=== PATIENT | male | born 1950 | race Caucasian/White ===

== ENCOUNTER → 2017-07-24 | Outpatient (REF) | payer MEDICARE, OTHER ==
[2017-07-24 12:25] LABS: ALBUMIN 3.5 GM/DL (3.2-5.2); ALBUMIN/GLOBULIN RATIO 0.83 (1.00-1.93); BILIRUBIN,TOTAL 0.5 MG/DL (0.2-1.0); CALCIUM LEVEL 8.8 MG/DL (8.8-10.2); CREATININE FOR GFR 1.32 MG/DL (0.70-1.30); GLOMERULAR FILTRATION RATE 57.3 (>49); POTASSIUM SERUM 3.3 MEQ/L (3.5-5.1); TOTAL PROTEIN 7.7 GM/DL (6.4-8.2)
== END ==
LOC: M LABDRAW1 08:12
PROVIDERS: ATTEND Emergency Medicine
DX: E55.9 Vitamin D deficiency, unspecified (principal); E78.2 Mixed hyperlipidemia; I10 Essential (primary) hypertension

== ENCOUNTER → 2017-09-28 | Outpatient (REF) | payer MEDICARE, OTHER ==
[2017-09-28 14:14] LABS: SQUAMOUS EPITHELIAL CELL URINE NONE SEEN /hpf (SMALL AMT); WBC, URINE 0-1 /hpf (0-3)
[2017-09-28 14:15] LABS: BACTERIA, URINE NONE SEEN; HYALINE CAST, URINE NONE SEEN /lpf (0-1); MICROSCOPIC EXAM PERFORMED; MUCUS, URINE MOD AMOUNT (NEGATIVE); RBC, URINE 0-1 /hpf (0-3)
== END ==
LOC: M LAB REF 13:07
DX: N18.3 Chronic kidney disease, stage 3 (moderate) (principal); R31.29 Other microscopic hematuria
CPT/HCPCS: 81015

== ENCOUNTER → 2018-01-22 | Outpatient (REF) | payer MEDICARE, OTHER ==
[2018-01-22 12:02] LABS: TOTAL 25(OH) VITAMIN D 30.3 NG/ML (30.0-100.0)
[2018-01-22 12:07] LABS: ALBUMIN 3.5 GM/DL (3.2-5.2); ALBUMIN/GLOBULIN RATIO 0.83 (1.00-1.93); ALKALINE PHOSPHATASE 63 U/L (45-117); ALT/SGPT 22 U/L (12-78); ANION GAP 11 MEQ/L (8-16); AST/SGOT 15 U/L (7-37); BILIRUBIN,TOTAL 0.6 MG/DL (0.2-1.0); BLOOD UREA NITROGEN 30 MG/DL (7-18); CALCIUM LEVEL 8.7 MG/DL (8.8-10.2); CARBON DIOXIDE LEVEL 26 MEQ/L (21-32); CHLORIDE LEVEL 108 MEQ/L (98-107); CHOLESTEROL LEVEL 165 MG/DL (<200); CHOLESTEROL RISK RATIO 4.125 (<5); CREATININE FOR GFR 1.45 MG/DL (0.70-1.30); GLOMERULAR FILTRATION RATE 51.4 (>49); GLUCOSE, FASTING 94 MG/DL (70-100); HDL CHOLESTEROL 40 MG/DL (>40); LDL CHOLESTEROL 93.2 MG/DL (<100); NON-HDL-C 125 MG/DL; POTASSIUM SERUM 3.6 MEQ/L (3.5-5.1); SODIUM LEVEL 145 MEQ/L (136-145); TOTAL PROTEIN 7.7 GM/DL (6.4-8.2); TRIGLYCERIDES LEVEL 159 MG/DL (<150)
== END ==
LOC: M LABDRAW1 08:21
DX: E78.2 Mixed hyperlipidemia (principal); E55.9 Vitamin D deficiency, unspecified; I10 Essential (primary) hypertension
CPT/HCPCS: 80053

== ENCOUNTER → 2018-10-15 | Outpatient (REF) | payer MEDICARE, OTHER ==
[2018-10-15 18:03] LABS: BACTERIA, URINE AUTO NEGATIVE (NEGATIVE); MUCUS, URINE SMALL (NEGATIVE); RBC, URINE AUTO 3 /HPF (0-3); SQUAMOUS EPITHELIAL CELL UR AU 0 /HPF (0-6); WBC, URINE AUTO 2 /HPF (0-3)
== END ==
LOC: M LAB REF 17:19
PROVIDERS: ATTEND Internal Medicine Nephrology
DX: N18.3 Chronic kidney disease, stage 3 (moderate) (principal)

== ENCOUNTER → 2019-01-28 | Outpatient (REF) | payer MEDICARE, OTHER ==
[2019-01-28 12:37] LABS: BASO # 0.1 10^3/uL (0.0-0.2); BASO % 0.6 % (0.0-1.0); EOS # 0.3 10^3/uL (0.0-0.50); EOS % 3.2 % (0.0-3.0); HEMATOCRIT 49.5 % (42.0-52.0); HEMOGLOBIN 16.9 g/dl (13.5-17.5); LYMPH # 1.2 10^3/uL (1.5-4.5); LYMPH % 15.6 % (24.0-44.0); MEAN CORPUSCULAR HEMOGLOBIN 30.6 pg (27.0-33.0); MEAN CORPUSCULAR HGB CONC 34.1 g/dl (32.0-36.5); MEAN CORPUSCULAR VOLUME 89.5 fl (80.0-96.0); MONO # 0.7 10^3/uL (0.0-0.8); MONO % 8.9 % (0.0-5.0); NEUTROPHILS # 5.6 10^3/uL (1.8-7.7); NEUTROPHILS % 71.3 % (36.0-66.0); PLATELET COUNT, AUTOMATED 206 10^3/uL (150-450); RED BLOOD COUNT 5.53 10^6/uL (4.30-6.10); WHITE BLOOD COUNT 7.8 10^3/uL (4.0-10.0)
[2019-01-28 12:42] LABS: ALBUMIN 3.6 GM/DL (3.2-5.2); BILIRUBIN,TOTAL 0.6 MG/DL (0.2-1.0); CALCIUM LEVEL 8.9 MG/DL (8.8-10.2); CHOLESTEROL RISK RATIO 4.219 (<5); CREATININE FOR GFR 1.53 MG/DL (0.70-1.30); GLOMERULAR FILTRATION RATE 48.1 (>42); POTASSIUM SERUM 3.4 MEQ/L (3.5-5.1); TOTAL PROTEIN 7.8 GM/DL (6.4-8.2); URIC ACID 8.2 MG/DL (3.5-7.2)
[2019-01-28 13:09] LABS: TOTAL 25(OH) VITAMIN D 27.3 NG/ML (30.0-100.0)
== END ==
LOC: M LABDRAW1 11:46
PROVIDERS: ATTEND Physician Assistant
DX: I10 Essential (primary) hypertension (principal); E78.2 Mixed hyperlipidemia; E55.9 Vitamin D deficiency, unspecified; M10.9 Gout, unspecified; J30.9 Allergic rhinitis, unspecified; Z79.899 Other long term (current) drug therapy

== ENCOUNTER → 2019-04-25 | Outpatient (CLI) | payer MEDICARE ==
--- NOTE | 2019-04-25 14:20 | REP ---
RENAL ULTRASOUND: Real-time sonographic evaluation of the kidneys is performed. The kidneys are normal in size and echotexture, right kidney measuring 10.5 x 5.5 x 4.0 cm and left kidney 10.7 x 4.8 x 5.2 cm. There is no hydronephrosis bilaterally. There is a cyst in the lower pole of the right kidney measuring 4 cm in diameter. Echogenic focus in the lower left kidney measures 1.7 cm compatible with an intrarenal calculus. Urinary bladder is minimally distended. There are bilateral ureteral jets in the urinary bladder with Doppler color evaluation. IMPRESSION: No hydronephrosis. Right renal cyst. Left renal calculus. Electronically Signed by Roel Read MD 04/25/2019 05:40 P
--- NOTE | 2019-04-25 15:12 | REP ---
RENAL NUCLEAR SCAN WITH FLOW AND FUNCTION: Following the intravenous administration of 8.7 mCi of technetium-99m MAG 3 immediate flow images are obtained in the posterior projection, showing symmetrical blood flow bilaterally. Delayed renal function images are performed every minute for a period of approximately 30 minutes. There is bilateral symmetrical cortical uptake and excretion. There is no hydronephrosis bilaterally. Split function is 48.2% on the left and 51.8% on the right. Time to peak is minimally elevated, 4 minutes on the left and 3 minutes on the right. T1/2 is slightly elevated on the left at 12.7 minutes and is normal on the right at 8.7 minutes. Renal function curves are relatively normal in their downward slopes. There is mild postvoid residual after voiding. IMPRESSION: No evidence of urinary tract obstruction. Relatively symmetrical function bilaterally without significant compromise. Mild postvoid residual in the urinary bladder. Electronically Signed by Roel Read MD 04/25/2019 05:52 P
== END ==
LOC: M RAD 12:08
PROVIDERS: ATTEND Nurse Practitioner Family
DX: I12.9 Hypertensive chronic kidney disease with stage 1 through stage 4 chronic kidney disease, or unspecified chronic kidney disease (principal); N18.3 Chronic kidney disease, stage 3 (moderate)
CPT/HCPCS: 76775; 78707; A9562

== ENCOUNTER → 2019-05-07 | Outpatient (CLI) | payer MEDICARE ==
--- NOTE | 2019-05-07 10:20 | REP ---
DUPLEX DOPPLER ULTRASOUND RENAL ARTERIES: Real-time ultrasound evaluation and duplex Doppler interrogation of the renal arteries is performed bilaterally. Right kidney demonstrates length of 11.1 cm with no hydronephrosis and left kidney 11.3 cm with no hydronephrosis. Peak systolic velocity of the abdominal aorta at the level of the renal arteries is 120.6 cm/s. Peak systolic velocity at the origin of the main right renal artery is 86.4 cm/s, renal to aortic ratio 0.7. Acceleration times are measured in the upper, middle, and lower thirds of the right kidney and range between 0.66 and 0.69. Acceleration times range between 0.023 and 0.025. Peak systolic velocity in the main left renal artery is 106.5 cm/s at its origin, renal to aortic ratio 0.8. Resistive indices range between 0.54 and 0.67. Acceleration times range between 0.022 and 0.028. IMPRESSION: No compelling duplex Doppler sonographic evidence of significant renal artery stenosis bilaterally. Electronically Signed by Roel Read MD 05/08/2019 04:05 P
--- NOTE | 2019-05-07 14:24 | REP ---
ULTRASOUND URINARY BLADDER: Real-time sonographic evaluation of the urinary bladder performed. Bladder measures 8.7 x 5.6 x 5.1 cm for a total volume of 162 mL. No mass or calculus is seen. There are bilateral ureteral jets seen with Doppler color evaluation. Postvoid residual is 11 mL which is 7% of the original volume. IMPRESSION: No mass or calculus. Postvoid residual 11 mL or 7% of the original volume. Electronically Signed by Roel Read MD 05/08/2019 04:17 P
== END ==
LOC: M RAD 07:21
PROVIDERS: ATTEND Nurse Practitioner Family
DX: I12.9 Hypertensive chronic kidney disease with stage 1 through stage 4 chronic kidney disease, or unspecified chronic kidney disease (principal); N18.3 Chronic kidney disease, stage 3 (moderate); R33.9 Retention of urine, unspecified

== ENCOUNTER → 2019-10-21 | Outpatient (REF) | payer MEDICARE ==
[2019-10-21 13:27] LABS: CALCIUM LEVEL 9.2 MG/DL (8.8-10.2); CREATININE FOR GFR 1.61 MG/DL (0.70-1.30); GLOMERULAR FILTRATION RATE 45.3 (>42); POTASSIUM SERUM 3.8 MEQ/L (3.5-5.1)
== END ==
LOC: M LABDRAW1 09:38
PROVIDERS: ATTEND Internal Medicine Cardiovascular Disease
DX: I10 Essential (primary) hypertension (principal)

== ENCOUNTER → 2021-03-08 | Outpatient (CLI) | payer MEDICARE | LOC: M LAB 15:42 | PROVIDERS: ATTEND Ophthalmology | DX: M31.6 Other giant cell arteritis (principal) ==

== ENCOUNTER → 2021-03-09 | Outpatient (CLI) | payer MEDICARE ==
[2021-03-09 16:13] LABS: RHEUMATOID FACTOR QUANT < 10.0 IU/ML (<15.0); TOTAL PROTEIN 8.1 GM/DL (6.4-8.2)
[2021-03-10 14:27] LABS: DRVV SCREEN 45.4 SEC
[2021-03-10 14:32] LABS: PTT LUPUS TYPE ANTICOAG SCREEN 1.2 (0-1.2)
[2021-03-10 14:43] LABS: DRVV CONFIRM 35.9 SEC
[2021-03-10 14:44] LABS: NORMALIZED RATIO 1.2 (0.00-1.20)
== END ==
LOC: M PLALAB 14:08
PROVIDERS: ATTEND Psychiatry & Neurology Neurology
DX: I63.9 Cerebral infarction, unspecified (principal)

== ENCOUNTER → 2021-03-17 | Outpatient (CLI) | payer MEDICARE ==
--- NOTE | 2021-03-18 07:51 | ECHO ---
ECHOCARDIOGRAM DATE OF PROCEDURE: 03/17/2021 Age: 70 Gender: Male Height: 70 inches Weight: 222 pounds Body Surface Area: 2.18 meters squared Outpatient REFERRING PHYSICIAN: Dr. Ramón Mejia INDICATION: History of cerebrovascular accident (CVA) - cardiac origin of embolic material? MEASUREMENTS: 2D Measurements: RV - 3.3 cm LV - 4.5 cm Septum 0.9 cm Posterior wall 0.9 cm Aortic Root 3.4 cm Ascending aorta 3.8 cm LA - 3.9 cm LVEF 66% Doppler Measurements: AV - 1.31 m/s LVOT - 0.90 m/s LVOT diameter 1.8 cm MV-E 46, A 95, E/A ratio 0.5 Early mitral deceleration time 300 msec E prime medial 5.7, A prime medial 10, E prime lateral 6.7 PV - 0.85 m/s Pulmonary artery acceleration time 100 msec RVSP 28 mmHg IVC - 1.2 cm COMMENTS: Normal sinus rhythm without interventricular conduction disturbance. Somewhat technically difficult study but some diagnostically useful information was still obtained. M-mode and 2-dimensional echocardiography was performed with pulse, continuous wave, color flow, and tissue Doppler studies. Normal left ventricular size, wall thickness and hyperkinetic wall motion. Left atrial size upper limits of normal with grade 1 left ventricular (LV) diastolic dysfunction but currently normal estimated mean left atrial pressure. Normal right heart chamber size and motion, and estimated pulmonary arterial pressure. Inferior vena cava (IVC) size was actually somewhat reduced with complete collapse suggestive of central venous pressure somewhat low. Normal aortic dimensions. Aortic valvular sclerosis without stenosis and trace to very mild aortic insufficiency. Mild degenerative changes of the mitral valvular apparatus with adequate leaflet excursion and no posterior systolic buckling. Only trace mitral insufficiency. Normal-appearing tricuspid valve with trace insufficiency. We did not see any pedunculated vegetation or intracardiac mass. No pericardial effusion. In light of the imaging challenge, it may be webb to consider transesophageal echocardiogram if a cardiac source is seriously suspect. CHRISTINE
== END ==
LOC: M CARPUL 12:51
PROVIDERS: ATTEND Psychiatry & Neurology Neurology
DX: I82.90 Acute embolism and thrombosis of unspecified vein (principal); Z86.73 Personal history of transient ischemic attack (TIA), and cerebral infarction without residual deficits; I35.8 Other nonrheumatic aortic valve disorders

== ENCOUNTER → 2021-03-25 | Outpatient (CLI) | payer MEDICARE ==
[~2021-03-25] MED LIST: ALLO100T PO; AMIL5TAB4 PO; ASPI81TA26 PO; CHLO125TA PO; CLOP75TA2 PO; DILT300C21 PO; ERGO500029 PO; HYDR-3363 PO; HYDR-3910 PO; LEVOTAB10 PO; POTA20TA6 PO
== END ==
LOC: M LABSMTC 11:37
PROVIDERS: ATTEND Anesthesiology
DX: Z01.812 Encounter for preprocedural laboratory examination (principal); Z20.822 Contact with and (suspected) exposure to COVID-19

== ENCOUNTER 2021-03-30 11:00 | Day surgery (SDC) | payer MEDICARE ==
[~2021-03-30] VITALS: Ht 177.8 cm; Wt 100.2 kg
[~2021-03-30 11:00] MED LIST changes: +LR 1,000 ML IV ONE; +ceFAZolin SOD 2 GM in IV 1 EA IV ONE
--- OUTSIDE RECORDS SUMMARY | 2021-03-30 11:05 | CCD | Continuity of Care Document ---
Author Author Kevin BAUTISTA MD Organization Unknown Address [address], [place] [address] Phone [phone] Care Team Providers Care Bridge Engineer Name Role Phone Watson Lora MD AUTM [phone] Joycelyn Mejia AUTM [phone] Charlie Quinn DP AUTM [phone] Jasmeet Donato MD AUTM [phone] Svitlana Mishra MD AUTM [phone] Uriel Dodson MD AUTM [phone] Problems Active Problems Provider Date Essential hypertension Ramez Bautista MD Onset: 6 Electrocardiogram abnormal Ramez Bautista MD Onset: 04/18 First degree atrioventricular block Ramez Bautista MD Ons et: 04/18/2016 Pure hyperglyceridemia Ramez Bautista MD Onset: 6 Overweight Ramez Bautista MD Onset: 04/18/2016 Hypertensive heart disease without congestive heart fa ilure Ramez Bautista MD Onset: 04/18/2016 Disturbance in sleep behavior Ramez Bautista MD Onset: Dietary management surveillance Ramez Bautista MD Onset: 03/13/2017 Edema Ramez Bautista MD Onset: 04/13/2017 Hypokalemia Ramez Bautista MD Onset: 08/21/2017 Premature beats Ramez Bautista MD Onset: 08/21/2017 Chronic kidney disease stage 3 Ramez Bautista MD Onset: 0 09/18/2017 Obesity Ramez Bautista MD Onset: 10/14/2019 Cerebral artery occlusion Ramez Bautista MD Onset: 2020 Social History Type Date Description Comments Sex Unknown ETOH Use Currently consumes alcohol 2-3 d rinks per month Tobacco Use Start: Unknown End: Unknown Patient is a former smoker Quit in 2000. Previously smoked up to 1 ppd x 20 yrs Smoking Status Reviewed: 03/18/21 Patient is a former smoker Qu it in 2000. Previously smoked up to 1 ppd x 20 yrs Exercise Type/Frequency Walks 5 times a week Exercise Type/Frequency hunting during tonny Exercise Type/Frequency General Activities Daily cutting, stacking, carrying, throwing wood for wood stove and wood stove maintenance in heating season Exercise Type/Frequency Does yardwork twice a we ek Exercise Type/Frequency Does housework 3 times a week Exercise Limitations Orthopedic Problem Feet Exercise Limitations Joint Pain R knee Allergies, Adverse Reactions, Alerts Active Allergies Reaction Severity Comments Date Nifedipine L/E edema 04/13/2017 Amlodipine L/E edema 04/13/2017 Spironolactone Swelling in breast 018 Inactive Allergies NKDA 04/18/2016 Medications Active Medications SIG Qnty Indications Ordering Provide r Date Aspirin 81mg Tablets DR 1 by mouth every day Unknown 03/17/2021 Clopidogrel Bisulfate 75mg Tablets 1 by mouth every day Unknown 03/17/2021 Vitamin D3 1.25mg (50873 Ut) Capsu les one tab twice a month Unknown 11/24/2019 Chlorthalidone 25mg Tablets 1/2 by mouth every day 45tabs I10 Ramez Bautista MD 10/14/2019 R60.0 Amiloride HCL 5mg Tablets 1 by mouth every day 90tabs I10 Ramez Bautista MD 10/14/2019 Potassium Chloride Liyah ER 20Meq Tablets ER 1 by mouth twice a day 180tabs Ramez Bautista MD 10/13/2019 Hydralazine HCL 25mg Tablets 1 by mouth two times a day Unknown 10/13/2019 Hydroxyzine Pamoate 25mg Capsules 1 by mouth every day at bedtime Unknown 10/17 Levocetirizine Dihydrochloride 5mg Tablets 1 by mouth every night at bedtime Unknown 10/14/2018 Diltiazem HCL ER Beads 300mg Caps ER 24HR 1 by mouth every day 90caps I10 Ramez Bautista MD 2017 Allopurinol 100mg Tablets 1 by mouth every day Unknown 12/25/2017 Immunizations Description No Information Available Vital Signs Date Vital Result Comment 03/18/2021 10:08am Weight 219.00 lb Home Weight 221lb home weight Height 71 inches 5'11" BMI (Body Mass Index) 30.5 kg/m2 Heart Rate 69 /min BP Systolic Sitting 148 mmHg CBP, large cuff/Ra BP Diastolic Sitting 95 mmHg CBP, large cuff/Ra 12/09/2020 9:00am Weight 220.00 lb Height 71 inches 5'11" BMI (Body Mass Index) 30.7 kg/m2 Heart Rate 79 /min BP Systolic Sitting 144 mmHg CBP large cuff, Ra BP Diastolic Sitting 97 mmHg CBP large cuff, Ra Results Test Acquired Date Facility Test Result H/L Range Note Laboratory test finding 03/09/2021 [facility] [phone] Erythrocyte Sedimentation Rate 2 mm/hr Normal 0 -20 Anti Thrombin 3 Panel (Ag/ac) 03/09/2021 [facility] [phone] Anti Thrombin 3 Funct Activity 102 % Normal 7 5-135 1 Anti Thrombin 3 Antigen Immuno 101 % Normal 72-124 2 Laboratory test finding 03/09/2021 [facility] [phone] Protein C Antigen 102 % Normal 60-150 3 Protein S Antigen (Tot & Free) 03/09/2021 [facility] [phone] Protein S Antigen Total 107 % Normal 60-150 4 Protein S Antigen Free 108 % Normal 57-157 5 Antinuclear Antibodies 03/09/2021 [facility] [phone] Antinuclear Antibodies Direct Negative Normal Ne gative Factor II Prothrombin Gene Dna 03/09/2021 [facility] [phone] Factor II Prothrombin Gene An (SEE NOTE) Normal . 6 Factor 5 Leiden Profile 03/09/2021 [facility] [phone] Factor V Leiden For [facility] (SEE NOTE) Normal . 7 Anti-Cardiolipin Antibodies 03/09/2021 [facility] [phone] Cardiolipin Iga Antibody <9 APLU/mL Normal 0-11 8 Cardiolipin Igg Antibody <9 GPLU/mL Normal 0-14 9 Cardiolipin Igm Antibody <9 MPLU/mL Normal 0-12 10 Laboratory test finding 03/09/2021 [facility] [phone] Lupus Type Anticoagulant Scree 1.2 Normal 0 -1.2 11 Lupus Confirm Stago 1.20 Normal 0.00-1.20 12 Lupus Screen Confirmation 03/09/2021 [facility] [phone] Hexagonal Phase Phospholipid 0 sec Normal 0-1 1 Comment For Hexagonal Confirm1 (SEE NOTE) Normal . 13 Serum Protein Electrophoresis 03/09/2021 [facility] [phone] Albumin % 53.7 % Low 55.8-66.1 Jkjss-2-Uvbpkgxc % 3.9 % Normal 2.9-4.9 Mhewv-4-Plxqltrur % 10.2 % Normal 7.1-11.8 Ghde-3-Ugsftzjit % 6.4 % Normal 4.7-7.2 Slxl-5-Ioypggjvc % 7.8 % High 3.2-6.5 Gamma Globulin % 18.0 % Normal 11.1-18.8 Albumin 4.35 GM/DL Normal 3.29-5.55 Llazf-3-Buarbotuu 0.32 GM/DL Normal 0.17-0.41 Blyfe-8-Xwzslrnbr 0.83 GM/DL Normal 0.42-0.99 Zxni-5-Xyzenwbpr 0.52 GM/DL Normal 0.28-0.60 Pxgp-4-Ncvdviuxx 0.63 GM/DL High 0.19-0.55 Gamma Globulins 1.46 GM/DL Normal 0.65-1.58 Total Protein 8.1 GM/DL Normal 6.4-8.2 Spep Interpretation SEE COMMENT Normal 14 Spep Pathologist Review REV'D BY Kitty VINSON Normal Laboratory test finding 03/09/2021 [facility] [phone] Syphilis NONREACTIVE Normal Nonreactive Rheumatoid Factor Quant < 10.0 IU/mL Normal <15.0 Laboratory test finding 03/08/2021 [facility] - not interf aced (315)- - C-Reactive Protein QN 0.74 High 0.00-0.30 Sed Rate 1 0-20 Renal Profile 10/19/2020 [facility] Glucose 100 Blood Urea Nitrogen 28.1 Creatinine 1.5 GFR (Calculated) 46 Sodium 137.6 Potassium 4.6 Chloride 108.7 Carbon Dioxide 26.3 Calcium 8.8 Phosphorus 2.8 Albumin 4.1 CBC without Differential 10/19/2020 [facility] White Blood Count 9.3 Red Blood Count 5.73 Platelets 185 Hemoglobin 17.9 Hematocrit 53.9 Laboratory test finding 10/19/2020 [facility] Magnesium Level 1.91 Uric Acid 6.6 1 Direct Xa inhibitor anticoag ulants such as rivaroxaban, apixaban and edoxaban will lead to spuriously elevated antithrombin activity levels possibly masking a deficiency. 2 This test was developed and its performance characteristics determined by [employer]. It has not been cleared or approved by the Food and Drug Administration. 3 Performed at: - [facility] [id number] Wind Turbine Engineer: Tasha Huerta MD, Phone: [phone] Performed at: - [facility] [id number] Wind Turbine Engineer: Demario Campoverde MD, Phone: [phone] Performed at: [facility] [address] [place], [place] [address] 554 Wind Turbine Engineer: [facility], located within [facility], Phone: [phone] 4 This test was developed and its performance characteristics determined by [employer]. It has not been cleared or approved by the Food and Drug Administration. 5 This test was developed and its performance characteristics determined by [employer]. It has not been cleared or approved by the Food and Drug Administration. Effective April 12, 2021, the reference interval for Protein S, Free will be changing to: 61 - 136% 6 NEGATIVE No mutation identified. . Comment: A point mutation ([id number]) in the factor II (prothrombin) gene is the second most common cause of inherited thrombophilia. The incidence of this mutation in the [place] population is about 2% and in the population it is approximately 0.5%. This mutation is rare in the and population. Being heterozygous for a prothrombin mutation increases the risk for developing venous thrombosis about 2 to 3 times above the general population risk. Being homozygous for the prothrombin gene mutation increases the relative risk for venous thrombosis further, although it is not yet known how much further the risk is increased. In women heterozygous for the prothrombin gene mutation, the use of estrogen containing oral contraceptives increases the relative risk of venous thrombosis about 16 times and the risk of developing cerebral thrombosis is also significantly increased. In the prothrombin gene mutation increases risk for venous thrombosis and may increase risk for stillbirth, placental abruption, pre-eclampsia and growth restriction. If the patient possesses two or more congenital or acquired thrombophilic risk factors, the risk for thrombosis may rise to more than the sum of the risk ratios for the individual mutations. This assay detects only the prothrombin [id number] mutation and does not measure genetic abnormalities elsewhere in the genome. Other thrombotic risk factors may be pursued through systematic clinical laboratory analysis. These factors include the R506Q (Leiden) mutation in the Factor V gene, plasma homocysteine levels, as well as testing for deficiencies of antithrombin III, protein C and protein S. . Genetic Counselors are available for health care providers to discuss results at [phone]). . Methodology: DNA analysis of the Factor II gene was performed by PCR amplification followed by restriction analysis. The diagnostic sensitivity is >99% for both. All the tests must be combined with clinical information for the most accurate interpretation. Molecular-based testing is highly accurate, but as in any laboratory test, diagnostic errors may occur. . This test was developed and its performance characteristics determined by [employer]. It has not been cleared or approved by the Food and Drug Administration. . Hildat SR, et al. Blood. 1996; 88:7482-1533. Erica EA. Circulation. 2004; 110:e15-e18. Hannah I, et al. Arterioscler Thromb Vasc Biol. 1999; 19:700-703. . Vicki Springer, PhD, [facility] Marylou Nicholson, PhD, [facility] WJoan Obrien, PhD, FAC Heaven Fortune, PhD, [facility] Hue Muñoz, PhD, [facility] Pascual Ontiveros, PhD, [facility] 7 Result: Negative (no mutati on found) . Factor V Leiden is a specific mutation (R506Q) in the factor V gene that is associated with an increased risk of venous thrombosis. Factor V Leiden is more resistant to inactivation by activated protein C. As a result, factor V persists in the circulation leading to a mild hyper- coagulable state. The Leiden mutation accounts for 90% - 95% of APC resistance. Factor V Leiden has been reported in patients with deep vein thrombosis, pulmonary embolus, central retinal vein occlusion, cerebral sinus thrombosis and hepatic vein thrombosis. Other risk factors to be considered in the workup for venous thrombosis include the [id number] mutation in the factor II (prothrombin) gene, protein S and C deficiency, and antithrombin deficiencies. Anticardiolipin antibody and lupus anticoagulant analysis may be appropriate for certain patients, as well as homocysteine levels. . Contact your local [facility] for information on how to order additional testing if desired. . . Genetic counselors are available for health care providers to discuss results at [phone] ([phone]). . Methodology: DNA analysis of the Factor V gene was performed by allele- specific PCR. The diagnostic sensitivity and specificity is >99% for both. Molecular-based testing is highly accurate, but as in any laboratory test, diagnostic errors may occur. All test results must be combined with clinical information for the most accurate interpretation. . This test was developed and its performance characteristics determined by [facility]. It has not been cleared or approved by the Food and Drug Administration. . References: Lois Erazo (1996). Clin Lab Med 16:169-186. . Vicki Springer, PhD, [facility] Marylou Nicholson, PhD, [facility] López Obrien, PhD, FAC Heaven Fortune, PhD, [facility] Hue Muñoz, PhD, [facility] Pascual Ontiveros PhD, [facility] 8 Negative: <12 Indeterminate: 12 - 20 Low-Med Positive: >20 - 80 High Positive: >80 9 Negative: <15 Indeterminate: 15 - 20 Low-Med Positive: >20 - 80 High Positive: >80 10 Negative: <13 Indeterminate: 13 - 20 Low-Med Positive: >20 - 80 High Positive: >80 11 RESULT IS 1.2 OR GREATER, FURTHER TESTING INDICATED. SEE RESULTS BELOW. INTERPRETATION This test is to screen those individuals that may have a circulating lupus anticoagulant. If the LA Screen test is normal, and/or the LA Confirm test is normal, the presence of a Lupus Anticoagulant (LA) is unlikely, but does not completely exclude LA-like activity. If both tests or the LA Confirm test are elevated, the specimen will be reflexed to a hexagonal phase phospholipid test through our reference laboratory for confirmation. A positive hexagonal phase phospholipid is indicative of LA. A negative hexagonal phase phospholipid test may indicate a coagulation factor deficiency or a specific inhibitor. 12 NORMALIZED RATIO IS EQUAL TO OR GREATER THAN 1.20 LA IS PRESENT. SPECIMEN WILL BE SENT TO [facility], [address] Charly Shook. [id number] REFERE [facility] FOR CONFIRMATION. 13 . Results do not indicate the presence of a Lupus Anticoagulant: abnormal high screening results (PTT-LA, dRVVT, mixing studies), may be due to medication (heparin, warfarin, aspirin), Factor inhibitors, anticardiolipin antibodies, or poor specimen integrity. Performed at: [address] [id number] Wind Turbine Engineer: Demario Campoverde MD, Phone: [phone] NO M-SPIKE(S)NOTED. Procedures Date Code Description Status 03/18/2021 33999 Office/Outpatient Established Lo w MDM 20-29 Min Completed 01/22/2021 71471 Chronic Care MGMT 20 Mins Clinical Staff Time Per Calendar Month Completed 12/21/2020 88652 Chronic Care MGMT 20 Mins Clinical Staff Time Per Calendar Month Completed 12/09/2020 23307 Office/Outpatient Established Mo d MDM 30-39 Min Completed 12/09/2020 10531 Arterial Pressure Wa veform Analysis For Assessment Of Central Art Completed 12/09/2020 39084 ECG 12-Lead Completed Medical Devices Description No Information Available Encounters Type Date Location Provider Dx Diagnosis Office Visit 03/18/2021 10:00a Main Office Ramez Bautista MD I63.9 Cerebral infarction, unspecified I10 Essential (primary) hyperten starr Office Visit 01/22/2021 2:31p Main Office Ramez Bautista MD I10 Essential (primary) hypertension I11.9 Hypertensive heart disease w [facility] heart failure Office Visit 12/21/2020 10:32a Main Office Ramez Bautista MD I10 Essential (primary) hypertension I11.9 Hypertensive heart disease w [facility] heart failure Office Visit 12/09/2020 9:00a Main Office Ramze Bautista MD I10 Essential (primary) hypertension I11.9 Hypertensive heart disease w [facility] heart failure R60.0 Localized edema I44.0 Atrioventricular block, firs t degree R94.31 Abnormal electrocardiogram [ ECG] [EKG] E66.09 Other obesity due to excess calories Z71.3 Dietary counseling and surve illance Assessments Date Code Description Provider 03/18/2021 I63.9 Cerebral infarction, unspecified Ramez Bautista MD 03/18/2021 I10 Essential (primary) hypertension Ramez Bautista MD 01/22/2021 I10 Essential (primary) hypertension Ramez Bautista MD 01/22/2021 I11.9 Hypertensive heart disease witho ut heart failure Ramez Bautista MD 12/21/2020 I10 Essential (primary) hypertension Ramez Bautista MD 12/21/2020 I11.9 Hypertensive heart disease witho ut heart failure Ramez Bautista MD 12/09/2020 I10 Essential (primary) hypertension Ramez Bautista MD 12/09/2020 I11.9 Hypertensive heart disease witho ut heart failure Ramez Bautista MD 12/09/2020 R60.0 Localized edema Ramez Bautista MD 12/09/2020 I44.0 Atrioventricular block, first de gree Ramez Bautista MD 12/09/2020 R94.31 Abnormal electrocardiogram [ECG] [EKG] Ramez Bautista MD 12/09/2020 E66.09 Other obesity due to excess sapna david Ramez Bautista MD 12/09/2020 Z71.3 Dietary counseling and surveilla nce Ramez Bautista MD Plan of Treatment Future Appointment(s):* 06/25/2021 11:15 am - Ramez Bautista MD at Main Office 03/18/2021 - Ramez Bautista MD* I63.9 Cerebral infarction, unspecified* Recommendations:* Subcutaneous cardiac rhythm monitor: SC cardiac rhythm monitor was discussed with the patient to further evaluate for cryptogenic stroke. Risks of SC cardiac rhythm monitor implantation were explained to the patient including, but not all inclusive: Very low risk for bleeding, infection, adverse drug reaction. Patient was agreeable to undergo implantation of a subcutaneous cardiac rhythm monitor and signed the consent form. Patient prefers and requests to have monitored anesthetic care to help with any anxiety or pain that may occur during the subcutaneous cardiac rhythm monitor implant procedure rather than having the procedure done in the office without IV sedation or IV pain medications. Arrangements in progress for elective outpatient implantation of a SC cardiac rhythm monitor with MAC. * I10 Essential (primary) hypertension* Recommendations:* Continue diltiazem ER, chlorthalidone, amiloride, potassium chloride, hydralazine at the current dosages. * All * Follow up:* 1. Book [employer] implantable loop recorder implant by Dr. Bautista. 2. Book incision check 5-8 days after implantable loop recorder implant. Functional Status Functional Condition Comment Date Status Independent with all ADL's Activ e Mental Status Description No Information Available Referrals Description No Information Available
--- OUTSIDE RECORDS SUMMARY | 2021-03-30 11:05 | CCD | Continuity of Care Document ---
Author Kevin Lockhart M.D. Organization Unknown Address [address] [place] [address] Phone [phone] Care Team Providers Care Catering Operations Manager Name Role Phone Svitlana Mishra M.D. AUTM [phone] Problems Active Problems Provider Date Excessive day and night-time sleepiness Ramón Mejia M.D. Onset: 04/20/2016 Sleep apnea Ramón Mejia M.D. Onset: 04/20/2016 Chronic neck pain Ramón Mejia M.D. Onset: 04/20/2016 Cerebrovascular accident Ramón Mejia M.D. Onset: 03/09/20 21 Peripheral visual field defect Ramón Mejia M.D. Onset: Social History Type Date Description Comments Sex Unknown Tobacco Use Start: Unknown Patient has never smoked Allergies, Adverse Reactions, Alerts Description No Known Drug Allergies Medications Active Medications SIG Qnty Indications Ordering Provide r Date Plavix 75mg Tablets 1 by mouth every day 90tabs Ramón Mejia M.D. 03/15/2021 Chlorthalidone 25mg Tablets Ramón Mejia M.D. 04/20/2016 Immunizations Description No Information Available Vital Signs Date Vital Result Comment 04/20/2016 10:32am BP Systolic 140 mmHg BP Diastolic 85 mmHg Heart Rate 72 /min Height 70 inches 5'10" Weight 210.00 lb BMI (Body Mass Index) 30.1 kg/m2 Agar Body Weight 166 lb Results Test Acquired Date Facility Test Result H/L Range Note Laboratory test finding 03/09/2021 [facility] Erythrocyte Sedimentation Rate 2 mm/hr Normal 0-20 Anti Thrombin 3 Panel (Ag/ac) 03/09/2021 [facility] Anti Thrombin 3 Funct Activity 102 % Normal 75-135 1 Anti Thrombin 3 Antigen Immuno 101 % Normal 72-124 2 Laboratory test finding 03/09/2021 [facility] Protein C Antigen 102 % Normal 60-150 3 Protein S Antigen (Tot & Free) 03/09/2021 [facility] Protein S Antigen Total 107 % Normal 60-150 4 Protein S Antigen Free 108 % Normal 57-157 5 Antinuclear Antibodies 03/09/2021 [facility] Antinuclear Antibodies Direct Negative Normal Negative Factor II Prothrombin Gene Dna 03/09/2021 [facility] Factor II Prothrombin Gene An (SEE NOTE) Normal . 6 Factor 5 Leiden Profile 03/09/2021 [facility] Factor V Leiden For Med[facility] (SEE NOTE) Normal . 7 Anti-Cardiolipin Antibodies 03/09/2021 [facility] Cardiolipin Iga Antibody <9 APLU/mL Normal 0-11 8 Cardiolipin Igg Antibody <9 GPLU/mL Normal 0-14 9 Cardiolipin Igm Antibody <9 MPLU/mL Normal 0-12 10 Laboratory test finding 03/09/2021 [facility] Lupus Type Anticoagulant Scree 1.2 Normal 0-1.2 11 Lupus Confirm Stago 1.20 Normal 0.00-1.20 12 Lupus Screen Confirmation 03/09/2021 [facility] Hexagonal Phase Phospholipid 0 sec Normal 0-11 Comment For Hexagonal Confirm1 (SEE NOTE) Normal . 13 Serum Protein Electrophoresis 03/09/2021 [facility] Albumin % 53.7 % Low 55.8-66.1 Mrpjb-7-Iyzbdgtz % 3.9 % Normal 2.9-4.9 Mewlv-7-Zvvxyjqfk % 10.2 % Normal 7.1-11.8 Nvyg-1-Riasoumrd % 6.4 % Normal 4.7-7.2 Zmxc-6-Wljyvfcnd % 7.8 % High 3.2-6.5 Gamma Globulin % 18.0 % Normal 11.1-18.8 Albumin 4.35 GM/DL Normal 3.29-5.55 Qvyoe-7-Dmvpfqmgu 0.32 GM/DL Normal 0.17-0.41 Fevsl-7-Povpdjijq 0.83 GM/DL Normal 0.42-0.99 Vhuw-8-Ghrghrnjf 0.52 GM/DL Normal 0.28-0.60 Ptha-7-Koplesoof 0.63 GM/DL High 0.19-0.55 Gamma Globulins 1.46 GM/DL Normal 0.65-1.58 Total Protein 8.1 GM/DL Normal 6.4-8.2 Spep Interpretation SEE COMMENT Normal 14 Spep Pathologist Review REV'D BY Kitty VINSON Normal Laboratory test finding 03/09/2021 [facility] Syphilis NONREACTIVE Normal Nonreactive Rheumatoid Factor Quant < 10.0 IU/mL Normal <15.0 1 Direct Xa inhibitor anticoag ulants such as rivaroxaban, apixaban and edoxaban will lead to spuriously elevated antithrombin activity levels possibly masking a deficiency. 2 This test was developed and its performance characteristics determined by [email or web address]. It has not been cleared or approved by the Food and Drug Administration. 3 Performed at: - Lab[address] [id number] Grounds Maintenance Supervisor: Tasha Huerta MD, Phone: [phone] Performed at: [facility] [address] [id number] 18 Grounds Maintenance Supervisor: Demario Campoverde MD, Phone: [phone] Performed at: [facility] [address] [place], [place] [address] 343 Grounds Maintenance Supervisor: Espinoza Bundy [facility], Phone: [phone] 4 This test was developed and its performance characteristics determined by [email or web address]. It has not been cleared or approved by the Food and Drug Administration. 5 This test was developed and its performance characteristics determined by [facility]. It has not been cleared or approved by the Food and Drug Administration. Effective April 12, 2021, the reference interval for Protein S, Free will be changing to: 61 - 136% 6 NEGATIVE No mutation identified. . Comment: A point mutation ([id number]) in the factor II (prothrombin) gene is [...] mutations. This assay detects only the prothrombin [id number] mutation and does not measure genetic abnormalities [...] health care providers to discuss results at [phone] ([phone]). . Methodology: DNA analysis of the Factor [...] developed and its performance characteristics determined by [employer]. It has not been cleared or approved by the Food and Drug Administration. . Hildat SR, et al. Blood. 1996; 88:4632-7823. Erica EA. Circulation. 2004; 110:e15-e18. Hannah I, et al. Arterioscler Thromb Vasc Biol. 1999; 19:700-703. . Vicki Springer, PhD, [facility] Marylou Nicholson, PhD, FAC W. Marge Obrien, PhD, FAC Heaven Fortune, PhD, FAC Hue Muñoz, PhD, [facility] Pascual Ontiveros, PhD, [facility] 7 Result: Negative (no mutati on [...] the workup for venous thrombosis include the [id number] mutation in the factor II (prothrombin) gene, protein S and C deficiency, and antithrombin deficiencies. Anticardiolipin antibody and lupus anticoagulant analysis may be appropriate for certain patients, as well as homocysteine levels. . Contact your local [facility] for information on how to order additional testing if desired. . . Genetic counselors are available for health care providers to discuss results at [phone]). . Methodology: DNA analysis of the Factor [...] developed and its performance characteristics determined by [facility]. It has not been cleared or approved by the Food and Drug Administration. . References: Lois Erazo (1996). Clin Lab Med 16:169-186. . Vicki Springer, PhD, FAC Marylou Nicholson, PhD, FAC López Obrien, PhD, FAC Heaven Fortune, PhD, FAC Hue Muñoz, PhD, FAC Pascual Ontiveros PhD, FAC 8 Negative: <12 Indeterminate: 12 - 20 [...] IS PRESENT. SPECIMEN WILL BE SENT TO [facility], [address] [facility] [address]. Charly Shook. [address] REFERE [facility] FOR CONFIRMATION. 13 . Results do not indicate the presence of a Lupus Anticoagulant: abnormal high screening results (PTT-LA, dRVVT, mixing studies), may be due to medication (heparin, warfarin, aspirin), Factor inhibitors, anticardiolipin antibodies, or poor specimen integrity. Performed at: [address] [id number] 61 Grounds Maintenance Supervisor: Demario Campoverde MD, Phone: [phone] NO M-SPIKE(S)NOTED. Procedures Date Code Description Status 03/23/2021 57821 Office/Outpatient Established Mo d MDM 30-39 Min Completed 03/11/2021 43967 Magnetic Resonance Angiography N martinez W/O Contrast Materials Completed 03/11/2021 44973 Magnetic Resonance Angiography N martinez W/O Contrast Materials Completed 03/11/2021 68799 Magnetic Resonance Angiogtaphy H ead W/O Contrast Material(S) Completed 03/11/2021 56226 Magnetic Resonance Angiogtaphy H ead W/O Contrast Material(S) Completed 03/09/2021 63179 Office/Outpatient New Moderate M DM 45-59 Minutes Completed 03/09/2021 60926 MRI Brain W/O Contrast Completed 03/09/2021 27288 MRI Brain W/O Contrast Completed Medical Devices Description No Information Available Encounters Type Date Location Provider Dx Diagnosis Office Visit 03/23/2021 11:00a [facility] Rigoberto Craig I63.9 Cerebral infarction, unspecified M54.5 Low back pain H54.0x33 Blindness r eye category 3, blindness left eye category 3 Office Visit 03/09/2021 11:30a [facility] Rigoberto Craig 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 03/23/2021 M54.5 Low back pain Daniel Craig 03/23/2021 H54.0x33 Blindness right eye category 3, blindness left eye category 3 Ramón Mejia M.D. 03/11/2021 I63.89 Other cerebral infarction Ramón Mejia M.D. 03/11/2021 I63.89 Other cerebral infarction MRI 03/09/2021 H53.451 Other localized visual field def ect, right eye Ramón Mejia M.D. 03/09/2021 H53.451 Other localized visual field def ect, right eye MRI 03/09/2021 I65.1 Occlusion and stenosis of basila r artery Ramón Mejia M.D. 03/09/2021 I67.89 Other cerebrovascular disease Ab edin Mejia M.D. 03/09/2021 H53.8 Other visual disturbances Ramón Mejia M.D. Plan of Treatment Future Appointment(s):* 04/30/2021 9:30 am - Ramón Mejia M.D. at [facility] Functional Status Description No Information Available Mental Status Description No Information Available Referrals Description No Information Available
--- OUTSIDE RECORDS SUMMARY | 2021-03-30 11:05 | CCD | Continuity of Care Document ---
Author Author Kevin BAUTISTA MD Organization Unknown Address [address], [place] [address] Phone [phone] Care Team Providers Care Curator Natural [employer] Name Role Phone Watson Lora MD AUTM [phone] Charlie Quinn DPM AUTM [phone] Jasmeet Donato MD AUTM [phone] Svitlana Mishra MD AUTM [phone] Uriel Dodson MD AUTM [phone] Problems Active Problems Provider Date Essential hypertension [...] every day Unknown 03/17/2021 Vitamin D3 1.25mg (65332 Ut) Capsu les one tab twice a [...] H/L Range Note Laboratory test finding 03/09/2021 [facility] [phone] Erythrocyte Sedimentation Rate 2 mm/hr Normal 0 -20 Anti Thrombin 3 Panel (Ag/ac) 03/09/2021 [facility] [phone] Anti Thrombin 3 Funct Activity 102 % Normal 7 5-135 1 Anti Thrombin 3 Antigen Immuno 101 % Normal 72-124 2 Laboratory test finding 03/09/2021 [facility] [phone] Protein C Antigen 102 % Normal 60-150 3 Protein S Antigen (Tot & Free) 03/09/2021 [facility] [phone] Protein S Antigen Total 107 % Normal 60-150 4 Protein S Antigen Free 108 % Normal 57-157 5 Antinuclear Antibodies 03/09/2021 [facility] [phone] Antinuclear Antibodies Direct Negative Normal Ne gative Factor II Prothrombin Gene Dna 03/09/2021 [facility] [phone] Factor II Prothrombin Gene An (SEE NOTE) Normal . 6 Factor 5 Leiden Profile 03/09/2021 [facility] [phone] Factor V Leiden For [facility] (SEE NOTE) Normal . 7 Anti-Cardiolipin Antibodies 03/09/2021 [facility] [phone] Cardiolipin Iga Antibody <9 APLU/mL Normal 0-11 8 Cardiolipin Igg Antibody <9 GPLU/mL Normal 0-14 9 Cardiolipin Igm Antibody <9 MPLU/mL Normal 0-12 10 Laboratory test finding 03/09/2021 [facility] [phone] Lupus Type Anticoagulant Scree 1.2 Normal 0 -1.2 11 Lupus Confirm Stago 1.20 Normal 0.00-1.20 12 Lupus Screen Confirmation 03/09/2021 [facility] [phone] Hexagonal Phase Phospholipid 0 sec Normal 0-1 1 Comment For Hexagonal Confirm1 (SEE NOTE) Normal . 13 Serum Protein Electrophoresis 03/09/2021 [facility] [phone] Albumin % 53.7 % Low 55.8-66.1 Cewrf-6-Olcncxfm % 3.9 % Normal 2.9-4.9 Nhtpj-1-Dnmkhwgdp % 10.2 % Normal 7.1-11.8 Fkur-2-Tofdwnmit % 6.4 % Normal 4.7-7.2 Krwo-9-Lrflupclo % 7.8 % High 3.2-6.5 Gamma Globulin % 18.0 % Normal 11.1-18.8 Albumin 4.35 GM/DL Normal 3.29-5.55 Qqqgl-0-Dlzqkulya 0.32 GM/DL Normal 0.17-0.41 Izayw-1-Aqkzeblxp 0.83 GM/DL Normal 0.42-0.99 Ufay-6-Otyisuxug 0.52 GM/DL Normal 0.28-0.60 Qker-0-Lozzeagrl 0.63 GM/DL High 0.19-0.55 Gamma Globulins 1.46 GM/DL Normal 0.65-1.58 Total Protein 8.1 GM/DL Normal 6.4-8.2 Spep Interpretation SEE COMMENT Normal 14 Spep Pathologist Review REV'D BY Kitty VINSON Normal Laboratory test finding 03/09/2021 [facility] [phone] Syphilis NONREACTIVE Normal Nonreactive Rheumatoid Factor Quant [...] developed and its performance characteristics determined by [employer]. It has not been cleared or approved by the Food and Drug Administration. 3 Performed at: - Lab[address] [id number] Landscape Maintenance Internship: Tasha Huerta MD, Phone: [phone] Performed at: [facility] Lab[address] [id number] Landscape Maintenance Internship: Demario Campoverde MD, Phone: [phone] Performed at: [facility] [address] [place] [place], [place] [address] 076 Landscape Maintenance Internship: Espinoza Bundy [facility], Phone: [phone] This test was developed and its performance characteristics determined by [employer]. It has not been cleared or approved by the Food and Drug Administration. 5 This test was developed and its performance characteristics determined by [employer]. It has not been cleared or approved by the Food and Drug Administration. Effective April 12, 2021, the reference interval for Protein S, Free will be changing to: 61 - 136% 6 NEGATIVE No mutation identified. . Comment: A point mutation ([id number]) in the factor II (prothrombin) gene is [...] mutations. This assay detects only the prothrombin [id number] mutation and does not measure genetic abnormalities [...] health care providers to discuss results at [phone]). . Methodology: DNA analysis of the Factor [...] developed and its performance characteristics determined by [employer]. It has not been cleared or approved by the Food and Drug Administration. . Poort SR, et al. Blood. 1996; 88:3033-7928. Erica EA. Circulation. 2004; 110:e15-e18. Hannah I, et al. Arterioscler Thromb Vasc Biol. 1999; 19:700-703. . Vicki Springer, PhD, [facility] Marylou Nicholson, PhD, [facility] W. Marge Obrien, PhD, FAC Heaven Fortune, PhD, [facility] Hue Muñoz, PhD, [facility] Pascual Ontiveros, PhD, [facility] 7 Result: Negative (no mutati on found) [...] the workup for venous thrombosis include the [id number] mutation in the factor II (prothrombin) gene, protein S and C deficiency, and antithrombin deficiencies. Anticardiolipin antibody and lupus anticoagulant analysis may be appropriate for certain patients, as well as homocysteine levels. . Contact your local [facility] for information on how to order additional testing if desired. . . Genetic counselors are available for health care providers to discuss results at [phone] [place] ([phone]). . Methodology: DNA analysis of the Factor [...] developed and its performance characteristics determined by [facility]. It has not been cleared or approved by the Food and Drug Administration. . References: Lois Erazo (1996). Clin Lab Med 16:169-186. . Vicki Springer, PhD, FAC Marylou Nicholson, PhD, [facility] W. Marge Obrien, PhD, FAC Heaven Fortune, PhD, FAC Hue Muñoz, PhD, FAC Pascual Ontiveros PhD, [facility] 8 Negative: <12 Indeterminate: 12 - 20 [...] IS PRESENT. SPECIMEN WILL BE SENT TO [facility], [address] Rod Shook.Murtaza. [address] REFERE [facility] FOR CONFIRMATION. 13 . Results do not indicate the presence of a Lupus Anticoagulant: abnormal high screening results (PTT-LA, dRVVT, mixing studies), may be due to medication (heparin, warfarin, aspirin), Factor inhibitors, anticardiolipin antibodies, or poor specimen integrity. Performed at: [facility] [address] [id number] Landscape Maintenance Internship: Demario Campoverde MD, Phone: [phone] NO M-SPIKE(S)NOTED. Procedures Date Code Description Status 03/18/2021 60756 Office/Outpatient Established Lo w MDM 20-29 Min Completed 01/22/2021 22134 Chronic Care MGMT 20 Mins Clinical Staff Time Per Calendar Month Completed 12/21/2020 82334 Chronic Care MGMT 20 Mins Clinical Staff Time Per Calendar Month Completed 12/09/2020 33544 Office/Outpatient Established Mo d MDM 30-39 Min Completed 12/09/2020 09476 Arterial Pressure Wa veform Analysis For Assessment Of Central Art Completed 12/09/2020 69584 ECG 12-Lead Completed 09/22/2020 41991 Chronic Care MGMT 20 Mins Clinical Staff Time Per Calendar Month Completed Medical Devices Description No Information Available Encounters Type Date Location Provider Dx Diagnosis Office Visit 03/18/2021 10:00a Main Office Ramez Bautista MD I63.9 Cerebral infarction, unspecified I10 Essential (primary) hyperten starr Office Visit 12/21/2020 10:32a Main Office Ramez Bautista MD I10 Essential (primary) hypertension I11.9 Hypertensive heart disease w [facility] heart failure Office Visit 12/09/2020 9:00a Main Office Ramez Bautista MD I10 Essential (primary) hypertension I11.9 Hypertensive heart disease w [facility] heart failure R60.0 Localized edema I44.0 Atrioventricular block, firs t degree R94.31 Abnormal electrocardiogram [ ECG] [EKG] E66.09 Other obesity due to excess calories Z71.3 Dietary counseling and surve illance Office Visit 09/22/2020 7:49a Main Office Ramez Bautista MD I10 Essential (primary) hypertension E66.09 Other obesity due to excess calories E78.1 Pure hyperglyceridemia Assessments Date Code Description Provider 03/18/2021 I63.9 Cerebral infarction, unspecified Ramez Bautista MD 03/18/2021 I10 Essential (primary) hypertension Ramez Bautista MD 01/22/2021 I10 Essential (primary) hypertension Ramez Bautista MD 01/22/2021 I11.9 Hypertensive heart disease witho il heart failure Ramez Bautista MD 12/21/2020 I10 Essential (primary) hypertension Ramez Bautista MD 12/21/2020 I11.9 Hypertensive heart disease witho il heart failure Ramez Bautista MD 12/09/2020 I10 [...] counseling and surveilla nce Ramez Bautista MD 09/22/2020 I10 Essential (primary) hypertension Ramez Bautista MD 09/22/2020 E66.09 Other obesity due to excess sapna david Ramez Bautista MD 09/22/2020 E78.1 Pure hyperglyceridemia Ramez Bautista MD Plan of Treatment Future Appointment(s):* 06/25/2021 11:15 am - Ramez Bautista MD at Main Office 03/18/2021 - Ramez Bautista MD* I63.9 Cerebral infarction, unspecified * I10 Essential (primary) hypertension * All * Follow up:* 1. Book [employer] implantable loop recorder implant by Dr. Bautista. 2. Book incision check 5-8 days after implantable loop recorder implant. Functional Status Functional Condition Comment Date Status Independent with all ADL's Activ e Mental Status Description No Information Available Referrals Description No Information Available
--- OUTSIDE RECORDS SUMMARY | 2021-03-30 11:05 | CCD | Continuity of Care Document ---
Author Author Kevin CORONA DPM Organization Unknown Address [address] [place] [address], [address] [place] [address] Phone [phone] Care Team Providers Care Furnace Door Tender Name Role Phone Svitlana Mishra M.D. [phone] Problems Active Problems Provider Date Osteochondropathy Charlie Corona DPM Onset: 12/05/2016 Corns and callus Charlie Corona DPM Onset: 12/05/2016 Other specified polyneuropathies Charlie Corona DPM Onset: 06/05/2019 Social History Type Date Description Comments Sex Unknown ETOH Use Has consumed alcohol in the past used to drink beer and wine now only has maybe a glassof wine or a beer in a week Tobacco Use Start: Unknown End: Unknown Patient is a former smoker hx smoking 20 years 1 ppd, quit in 1999 Allergies, Adverse Reactions, Alerts Description No Known Drug Allergies Medications Active Medications SIG Qnty Indications Ordering Provide r Date Cephalexin 500mg Tablets 1 by mouth twice a day 14tabs Charlie Corona DPM 04/26/2018 Ciclopirox 8% Solution apply to affected nail(s) as directed 6.6units Charlie Corona DPM 017 Ammonium Lactate 12% Cream apply to feet daily 280gm Charlie Corona DPM 12/15/2015 Silvadene 1% Cream apply twice a day to ulcer 60g Charlie Corona DPM 08/25/2015 Amlodipine Besylate 10mg Tablets Black Rigoberto.Tomasa,Christopher Atenolol 50mg Tablets Guido Franklin.Tomasa,Christopher Lisinopril 40mg Tablets Guido Robles,Christopher Mupirocin 2% Ointment Black Rigoberto.Nadege.,Christopher Cefdinir 300mg Capsules Black Rigoberto.Tomasa,Christopher Vitamin D (Ergocalciferol) 80505Msxl Capsules Unknown Penicillin V Potassium 500mg Tablets Unknown Azelastine HCL (Nasal) 0.1% Solution Unknown Fluticasone Propionate 50mcg/Act Suspension Unknown Triamcinolone Acetonide 0.5% Cream Unknown Immunizations Description No Information Available Vital Signs Date Vital Result Comment 07/28/2015 9:33am Height 71 inches 5'11" Weight 205.00 lb BP Systolic 134 mmHg BP Diastolic 78 mmHg Heart Rate 72 /min BMI (Body Mass Index) 28.6 kg/m2 Results Description No Information Available Procedures Date Code Description Status 02/24/2021 57616 Office/Outpatient Established SF MDM 10-19 Min Completed 01/25/2021 50113 Paring/Cut Benign Lesion 2 To 4 Completed 12/21/2020 53475 Office/Outpatient Established SF MDM 10-19 Min Completed 11/20/2020 94302 Paring/Cut Benign Lesion 2 To 4 Completed 10/16/2020 99136 Office/Outpatient Established SF MDM 10-19 Min Completed Medical Devices Description No Information Available Encounters Type Date Location Provider Dx Diagnosis Office Visit 02/24/2021 8:15a [place] [facility] Charlie Corona DPM 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, unsp ankle and foot L84 Corns and callosities G62.89 Other specified polyneuropat hies Office Visit 12/21/2020 8:15a [place] [facility] Charlie Corona DPM 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, unsp ankle and foot L84 Corns and callosities G62.89 Other specified polyneuropat hies Office Visit 10/16/2020 8:15a [place] [facility] Charlie Corona DPM 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, unsp ankle and foot L84 Corns and callosities G62.89 Other specified polyneuropat hies Assessments Date Code Description Provider 02/24/2021 M84.879 Other disorders of c ontinuity of bone, unspecified ankle and foot Charlie Corona, DPM 02/24/2021 L84 Corns and callosities Charlie Corona, DPM 02/24/2021 G62.89 Other specified polyneuropathies Charlie Corona, DPM 01/25/2021 G62.89 Other specified polyneuropathies Charlie Corona, DPM 01/25/2021 L84 Corns and callosities Charlie Corona, DPM 12/21/2020 M84.879 Other disorders of c ontinuity of bone, unspecified ankle and foot Charlie Corona, DPM 12/21/2020 L84 Corns and callosities Charlie Corona, DPM 12/21/2020 G62.89 Other specified polyneuropathies Charlie Corona, DPM 11/20/2020 G62.89 Other specified polyneuropathies Charlie Corona, DPM 11/20/2020 L84 Corns and callosities Charlie Corona, DPM 10/16/2020 M84.879 Other disorders of c ontinuity of bone, unspecified ankle and foot Charlie Corona, DPM 10/16/2020 L84 Corns and callosities Charlie Corona, DPM 10/16/2020 G62.89 Other specified polyneuropathies Charlie Corona DPM Plan of Treatment Future Appointment(s):* 05/03/2021 8:15 am - Charlie Corona DPM at [facility] Functional Status Description No Information Available Mental Status Description No Information Available Referrals Description No Information Available
--- OUTSIDE RECORDS SUMMARY | 2021-03-30 11:05 | CCD ---
Continuity of Care Document (CCD) Created on: 03/16/2021 Kevin Goodrich External Reference #: [id number] : [id number] Sex: Male Author Organization Unknown Address Unknown Phone Unavailable Care Team Providers Care Chief Lifestyle Officer Name Role Phone Watson Lora MD AUTM [phone] Charlie [place] DPM AUTM [phone] Jasmeet Donato MD AUTM [phone] Svitlana Mishra MD AUTM [phone] Problems Active Problems Provider Date Essential hypertension [...] 09/18/2017 Obesity Ramez Bautista MD Onset: 10/14/2019 Social History Type Date Description Comments Sex Unknown ETOH Use Currently consumes alcohol 2-3 d rinks per month Tobacco Use Start: Unknown End: Unknown Patient is a former smoker Quit in 2000. Previously smoked up to 1 ppd x 20 yrs Smoking Status Reviewed: 12/09/20 Patient is a former smoker Qu it in 2000. Previously smoked up to 1 ppd x 20 yrs Exercise Type/Frequency Walks 5 times a week Exercise Type/Frequency hunting during on Exercise Type/Frequency General Activities Daily cutting, stacking, [...] SIG Qnty Indications Ordering Provide r Date Vitamin D3 1.25mg (30914 Ut) Capsu les one tab twice a [...] Available Vital Signs Date Vital Result Comment 12/09/2020 9:00am Weight 220.00 lb Height 71 inches 5'11" BMI (Body Mass Index) 30.7 kg/m2 Heart Rate 79 /min BP Systolic Sitting 144 mmHg CBP large cuff, Ra BP Diastolic Sitting 97 mmHg CBP large cuff, Ra 05/27/2020 9:23am Weight 213.00 lb Height 71 inches 5'11" BMI (Body Mass Index) 29.7 kg/m2 Heart Rate 70 /min BP Systolic Sitting 142 mmHg CBP, large cuff/Ra BP Diastolic Sitting 91 mmHg CBP, large cuff/Ra Results Test Acquired Date Facility Test Result H/L Range Note Laboratory test finding 03/09/2021 [facility] [phone] Erythrocyte Sedimentation Rate 2 mm/hr Normal 0 -20 Anti Thrombin 3 Panel (Ag/ac) 03/09/2021 [facility] [phone] Anti Thrombin 3 Funct Activity 102 % Normal 7 5-135 1 Anti Thrombin 3 Antigen Immuno 101 % Normal 72-124 2 Laboratory test finding 03/09/2021 [facility] [phone] Protein C Antigen 102 % Normal 60-150 3 Protein S Antigen (Tot & Free) 03/09/2021 [facility] [phone] Protein S Antigen Total 107 % Normal 60-150 4 Protein S Antigen Free 108 % Normal 57-157 5 Antinuclear Antibodies 03/09/2021 [facility] [phone] Antinuclear Antibodies Direct Negative Normal Ne gative Factor II Prothrombin Gene Dna 03/09/2021 [facility] [phone] Factor II Prothrombin Gene An (SEE NOTE) Normal . 6 Factor 5 Leiden Profile 03/09/2021 [facility] [phone] Factor V Leiden For [facility] (SEE NOTE) Normal . 7 Anti-Cardiolipin Antibodies 03/09/2021 [facility] [phone] Cardiolipin Iga Antibody <9 APLU/mL Normal 0-11 8 Cardiolipin Igg Antibody <9 GPLU/mL Normal 0-14 9 Cardiolipin Igm Antibody <9 MPLU/mL Normal 0-12 10 Laboratory test finding 03/09/2021 [facility] [phone] Lupus Type Anticoagulant Scree 1.2 Normal 0 -1.2 11 Lupus Confirm Stago 1.20 Normal 0.00-1.20 12 Lupus Screen Confirmation 03/09/2021 [facility] [phone] Hexagonal Phase Phospholipid 0 sec Normal 0-1 1 Comment For Hexagonal Confirm1 (SEE NOTE) Normal . 13 Serum Protein Electrophoresis 03/09/2021 [facility] [phone] Albumin % 53.7 % Low 55.8-66.1 Oxufc-6-Isdzajgf % 3.9 % Normal 2.9-4.9 Wdhup-2-Wlxzkfefv % 10.2 % Normal 7.1-11.8 Rnji-1-Xmvtxsaro % 6.4 % Normal 4.7-7.2 Fkya-2-Qidnulqtt % 7.8 % High 3.2-6.5 Gamma Globulin % 18.0 % Normal 11.1-18.8 Albumin 4.35 GM/DL Normal 3.29-5.55 Esiye-0-Jvkbzeqyy 0.32 GM/DL Normal 0.17-0.41 Eqtxk-5-Hiriizqhl 0.83 GM/DL Normal 0.42-0.99 Diza-9-Orlsnijma 0.52 GM/DL Normal 0.28-0.60 Tlqs-3-Bjrwfqjwr 0.63 GM/DL High 0.19-0.55 Gamma Globulins 1.46 GM/DL Normal 0.65-1.58 Total Protein 8.1 GM/DL Normal 6.4-8.2 Spep Interpretation SEE COMMENT Normal 14 Spep Pathologist Review REV'D BY Kitty VINSON Normal Laboratory test finding 03/09/2021 [facility] [phone] Syphilis NONREACTIVE Normal Nonreactive Rheumatoid Factor Quant [...] developed and its performance characteristics determined by [employer]. It has not been cleared or approved by the Food and Drug Administration. 3 Performed at: - [facility] [id number] Field Marketing Associate: Tasha Huerta MD, Phone: [phone] [facility]formed at: - [facility] [address] [place], [place] [address] Field Marketing Associate: Demario Campoverde MD, Phone: [phone] Performed at: - [facility] [address] [place], [place] [address] 626 Field Marketing Associate: Espinoza Bundy [facility], Phone: [phone] 4 This test was developed and its performance characteristics determined by [employer]. It has not been cleared or approved by the Food and Drug Administration. 5 This test was developed and its performance characteristics determined by [employer]. It has not been cleared or approved by the Food and Drug Administration. Effective April 12, 2021, the reference interval for Protein S, Free will be changing to: 61 - 136% 6 NEGATIVE No mutation identified. . Comment: A point mutation ([id number]) in the factor II (prothrombin) gene is [...] mutations. This assay detects only the prothrombin [id number] mutation and does not measure genetic abnormalities [...] health care providers to discuss results at [phone] ([phone]). . Methodology: DNA analysis of the Factor [...] developed and its performance characteristics determined by [employer]. It has not been cleared or approved by the Food and Drug Administration. . Hildat SR, et al. Blood. 1996; 88:6379-3676. Erica EA. Circulation. 2004; 110:e15-e18. Hannah I, et al. Arterioscler Thromb Vasc Biol. 1999; 19:700-703. . Vicki Springer, PhD, [facility] Marylou Nicholson, PhD, [facility] W. Marge Obrien, PhD, [facility] Heaven Fortune, PhD, [facility] Hue Muñoz, PhD, [facility] Pascual Ontiveros, PhD, [facility] 7 Result: Negative (no mutati on found) [...] the workup for venous thrombosis include the [id number] mutation in the factor II (prothrombin) gene, protein S and C deficiency, and antithrombin deficiencies. Anticardiolipin antibody and lupus anticoagulant analysis may be appropriate for certain patients, as well as homocysteine levels. . Contact your local [facility] for information on how to order additional testing if desired. . . Genetic counselors are available for health care providers to discuss results at [phone] ([phone]). . Methodology: DNA analysis of the Factor [...] developed and its performance characteristics determined by [employer]. It has not been cleared or approved by the Food and Drug Administration. . References: Lois Erazo (1996). Clin Lab Med 16:169-186. . Vicki Springer, PhD, [facility] Marylou Nicholson, PhD, [facility] López Obrien, PhD, [facility] Heaven Fortune, PhD, [employer] Hue Muñoz, PhD, [facility] Pascual Ontiveros PhD, [facility] 8 Negative: <12 Indeterminate: 12 - 20 [...] IS PRESENT. SPECIMEN WILL BE SENT TO [facility], [address] [place] Shook. [address] REFERE [facility] FOR CONFIRMATION. 13 . Results do not indicate the presence of a Lupus Anticoagulant: abnormal high screening results (PTT-LA, dRVVT, mixing studies), may be due to medication (heparin, warfarin, aspirin), Factor inhibitors, anticardiolipin antibodies, or poor specimen integrity. Performed at: [facility] [id number] 61 Field Marketing Associate: Demario Campoverde MD, Phone: [phone] 14 NO M-SPIKE(S)NOTED. Procedures Date Code Description Status 01/22/2021 02225 Chronic Care MGMT 20 Mins Clinical Staff Time Per Calendar Month Completed 12/21/2020 72928 Chronic Care MGMT 20 Mins Clinical Staff Time Per Calendar Month Completed 12/09/2020 41468 Office/Outpatient Established Mo d MDM 30-39 Min Completed 12/09/2020 99248 Arterial Pressure Wa veform Analysis For Assessment Of Central Art Completed 12/09/2020 96694 ECG 12-Lead Completed 09/22/2020 53982 Chronic Care MGMT 20 Mins Clinical Staff Time Per Calendar Month Completed Medical Devices Description No Information Available Encounters Type Date Location Provider Dx Diagnosis Office Visit 12/21/2020 10:32a Main Office Ramez Bautista MD I10 Essential (primary) hypertension I11.9 Hypertensive heart disease w [facility] heart failure Office Visit 12/09/2020 9:00a Main Office Ramez Bautista MD I10 Essential (primary) hypertension I11.9 Hypertensive heart disease w [facility] heart failure R60.0 Localized edema I44.0 Atrioventricular block, firs t degree R94.31 Abnormal electrocardiogram [ ECG] [EKG] E66.09 Other obesity due to excess calories Z71.3 Dietary counseling and surve illance Office Visit 09/22/2020 7:49a Main Office Ramez Bautista MD I10 Essential (primary) hypertension E66.09 Other obesity due to excess calories E78.1 Pure hyperglyceridemia Assessments Date Code Description Provider 01/22/2021 I10 Essential (primary) hypertension Ramez Bautista MD 01/22/2021 I11.9 Hypertensive heart disease witho ak heart failure Ramez Bautista MD 12/21/2020 I10 Essential (primary) hypertension Ramez Bautista MD 12/21/2020 I11.9 Hypertensive heart disease witho ak heart failure Ramez Bautista MD 12/09/2020 I10 Essential (primary) hypertension Ramez Bautista MD 12/09/2020 I11.9 Hypertensive heart disease witho ak heart failure Ramez Bautista MD 12/09/2020 R60.0 [...] Bautista MD Plan of Treatment Future Appointment(s):* 03/18/2021 10:00 am - Ramez Bautista MD at Main Office * 06/25/2021 11:15 am - Ramez Bautista MD at Main Office 12/09/2020 - Ramez Bautista MD* I10 Essential (primary) hypertension* Recommendations:* Continue diltiazem ER, chlorthalidone, amiloride, potassium chloride, hydralazine at the current dosages. Whole-food, plant-based, low sodium nutrition with avoidance of added oils and fats and avoidance of refined carbohydrates was encouraged. Walking or equivalent aerobic activity for 40-60 minutes every day. * I11.9 Hypertensive heart disease without heart failure* Recommendations:* Evaluation/management of systemic hypertension as above. * R60.0 Localized edema* Recommendations:* Continue chlorthalidone and amiloride at the current dosages. * I44.0 Atrioventricular block, first degree* Recommendations:* Continue diltiazem at the current dosage. * R94.31 Abnormal electrocardiogram [ECG] [EKG] * E66.09 Other obesity due to excess calories* Recommendations:* Nutrition and exercise advice as above. * Z71.3 Dietary counseling and surveillance * All * Follow up:* Follow-up in [address] Bautista. Functional Status Functional Condition Comment Date Status Independent with all ADL's Activ e Mental Status Description No Information Available Referrals Description No Information Available
--- OUTSIDE RECORDS SUMMARY | 2021-03-30 11:05 | CCD | Continuity of Care Document ---
Author Author Kevin BAUTISTA MD Organization Unknown Address [address] [facility], [place] [address] Phone [phone] Care Team Providers Care Food Safety Technician Name Role Phone Watson Lora MD AUTM [phone] Charlie [place] DPM AUTM [phone] Jasmeet Donato MD AUTM [phone] Svitlana Mishra MD AUTM [phone] Uriel Dodson MD AUTM [phone] Problems Active Problems Provider Date Essential hypertension [...] every day Unknown 03/17/2021 Vitamin D3 1.25mg (14532 Ut) Capsu les one tab twice a [...] H/L Range Note Laboratory test finding 03/09/2021 [facility] [phone] Erythrocyte Sedimentation Rate 2 mm/hr Normal 0 -20 Anti Thrombin 3 Panel (Ag/ac) 03/09/2021 [facility] [phone] Anti Thrombin 3 Funct Activity 102 % Normal 7 5-135 1 Anti Thrombin 3 Antigen Immuno 101 % Normal 72-124 2 Laboratory test finding 03/09/2021 [facility] [phone] Protein C Antigen 102 % Normal 60-150 3 Protein S Antigen (Tot & Free) 03/09/2021 [facility] [phone] Protein S Antigen Total 107 % Normal 60-150 4 Protein S Antigen Free 108 % Normal 57-157 5 Antinuclear Antibodies 03/09/2021 [facility] [phone] Antinuclear Antibodies Direct Negative Normal Ne gative Factor II Prothrombin Gene Dna 03/09/2021 [facility] [phone] Factor II Prothrombin Gene An (SEE NOTE) Normal . 6 Factor 5 Leiden Profile 03/09/2021 [facility] [phone] Factor V Leiden For [facility] (SEE NOTE) Normal . 7 Anti-Cardiolipin Antibodies 03/09/2021 [facility] [phone] Cardiolipin Iga Antibody <9 APLU/mL Normal 0-11 8 Cardiolipin Igg Antibody <9 GPLU/mL Normal 0-14 9 Cardiolipin Igm Antibody <9 MPLU/mL Normal 0-12 10 Laboratory test finding 03/09/2021 [facility] [phone] Lupus Type Anticoagulant Scree 1.2 Normal 0 -1.2 11 Lupus Confirm Stago 1.20 Normal 0.00-1.20 12 Lupus Screen Confirmation 03/09/2021 [facility] [phone] Hexagonal Phase Phospholipid 0 sec Normal 0-1 1 Comment For Hexagonal Confirm1 (SEE NOTE) Normal . 13 Serum Protein Electrophoresis 03/09/2021 [facility] [phone] Albumin % 53.7 % Low 55.8-66.1 Btbpf-4-Qzyvziac % 3.9 % Normal 2.9-4.9 Sdymf-7-Abyhmgzyw % 10.2 % Normal 7.1-11.8 Fwrc-6-Ohcnhgzrp % 6.4 % Normal 4.7-7.2 Ablz-9-Eflhjpyqy % 7.8 % High 3.2-6.5 Gamma Globulin % 18.0 % Normal 11.1-18.8 Albumin 4.35 GM/DL Normal 3.29-5.55 Zlhim-6-Sgjkebqny 0.32 GM/DL Normal 0.17-0.41 Ponhd-3-Awxitvasp 0.83 GM/DL Normal 0.42-0.99 Qtkk-9-Jliuutzcb 0.52 GM/DL Normal 0.28-0.60 Xbqx-0-Yjedmchsw 0.63 GM/DL High 0.19-0.55 Gamma Globulins 1.46 GM/DL Normal 0.65-1.58 Total Protein 8.1 GM/DL Normal 6.4-8.2 Spep Interpretation SEE COMMENT Normal 14 Spep Pathologist Review REV'D BY Kitty VINSON Normal Laboratory test finding 03/09/2021 [facility] [phone] Syphilis NONREACTIVE Normal Nonreactive Rheumatoid Factor Quant [...] developed and its performance characteristics determined by [employer]. It has not been cleared or approved by the Food and Drug Administration. 3 Performed at: - [address] [id number] Culture Room Worker: Tasha Huerta MD, Phone: [phone] Performed at: [facility] [address] [id number] Culture Room Worker: Demario Campoverde MD, Phone: [phone] Performed at: [facility] [place] [address] [place], [place] [address] 468 Culture Room Worker: Espinoza Bundy [facility], Phone: [phone] 4 This test was developed and its performance characteristics determined by [employer]. It has not been cleared or approved by the Food and Drug Administration. 5 This test was developed and its performance characteristics determined by [employer]. It has not been cleared or approved by the Food and Drug Administration. Effective April 12, 2021, the reference interval for Protein S, Free will be changing to: 61 - 136% 6 NEGATIVE No mutation identified. . Comment: A point mutation ([id number]) in the factor II (prothrombin) gene is [...] mutations. This assay detects only the prothrombin [id number] mutation and does not measure genetic abnormalities [...] health care providers to discuss results at [phone] ([phone]). . Methodology: DNA analysis of the Factor [...] developed and its performance characteristics determined by [employer]. It has not been cleared or approved by the Food and Drug Administration. . Poort SR, et al. Blood. 1996; 88:1223-7961. Erica EA. Circulation. 2004; 110:e15-e18. Hannah I, et al. Arterioscler Thromb Vasc Biol. 1999; 19:700-703. . Vicki Springer, PhD, [facility] Marylou Nicholson, PhD, [facility] W. Marge Obrien, PhD, [employer] Heaven Fortune, PhD, [facility] Hue Muñoz, PhD, [facility] Pascual Ontiveros, PhD, [facility] 7 Result: Negative (no mutati on [...] the workup for venous thrombosis include the [id number] mutation in the factor II (prothrombin) gene, protein S and C deficiency, and antithrombin deficiencies. Anticardiolipin antibody and lupus anticoagulant analysis may be appropriate for certain patients, as well as homocysteine levels. . Contact your local [facility] for information on how to order additional testing if desired. . . Genetic counselors are available for health care providers to discuss results at [phone] ([phone]). . Methodology: DNA analysis of the Factor [...] developed and its performance characteristics determined by [facility]. It has not been cleared or approved by the Food and Drug Administration. . References: Lois Erazo (1996). Clin Lab Med 16:169-186. . Vicki Springer, PhD, [employer] Marylou Nicholson, PhD, [facility] W. Marge Obrien, PhD, [employer] Heaven Fortune, PhD, [employer] Hue Muñoz, PhD, [employer] Pascual Ontiveros PhD, [facility] 8 Negative: <12 Indeterminate: 12 - [...] IS PRESENT. SPECIMEN WILL BE SENT TO [facility], [address] [place] Shook.[place]. [address] REFERE [facility] FOR CONFIRMATION. 13 . Results do not indicate the presence of a Lupus Anticoagulant: abnormal high screening results (PTT-LA, dRVVT, mixing studies), may be due to medication (heparin, warfarin, aspirin), Factor inhibitors, anticardiolipin antibodies, or poor specimen integrity. Performed at: [facility] [address] [id number] Culture Room Worker: Demario Campoverde MD, Phone: [phone] 14 NO M-SPIKE(S)NOTED. Procedures Date Code Description Status 03/18/2021 76831 Office/Outpatient Established Lo w MDM 20-29 Min Completed 01/22/2021 69527 Chronic Care MGMT 20 Mins Clinical Staff Time Per Calendar Month Completed 12/21/2020 42873 Chronic Care MGMT 20 Mins Clinical Staff Time Per Calendar Month Completed 12/09/2020 39634 Office/Outpatient Established Mo d MDM 30-39 Min Completed 12/09/2020 42352 Arterial Pressure Wa veform Analysis For Assessment Of Central Art Completed 12/09/2020 50595 ECG 12-Lead Completed 09/22/2020 99969 Chronic Care MGMT 20 Mins Clinical Staff Time Per Calendar Month Completed Medical Devices Description No Information Available Encounters Type Date Location Provider Dx Diagnosis Office Visit 03/18/2021 10:00a Main Office Ramez Bautista MD I63.9 Cerebral infarction, unspecified I10 Essential (primary) hyperten starr Office Visit 01/22/2021 2:31p Main Office Ramez Bautista MD I10 Essential (primary) hypertension I11.9 Hypertensive heart disease w [facility] heart failure Office Visit 12/21/2020 10:32a Main Office Ramez Bautista MD I10 Essential (primary) hypertension I11.9 Hypertensive heart disease w [facility] heart failure Office Visit 12/09/2020 9:00a Main Office Ramez Bautista MD I10 Essential (primary) hypertension I11.9 Hypertensive heart disease w [facility] heart failure R60.0 Localized edema I44.0 [...]
--- OUTSIDE RECORDS SUMMARY | 2021-03-30 11:05 | CCD | Continuity of Care Document ---
Author Author Kevin BAUTISTA MD Organization Unknown Address [address] [facility], [place] [address] Phone [phone] Care Team Providers Care Sludge Filtration Attendant Name Role Phone Watson Lora MD AUTM [phone] Charlie Quinn DPM AUTM [phone] Jasmeet Donato MD AUTM [phone] Svitlana Mishra MD AUTM [phone] Uriel Dodson MD AUTM [phone] Problems Active Problems Provider Date Essential hypertension Ramez Bautista MD Onset: 6 Electrocardiogram abnormal Rmaez Bautista MD Onset: 04/18 First degree atrioventricular [...] every day Unknown 03/17/2021 Vitamin D3 1.25mg (24093 Ut) Capsu les one tab twice a [...] H/L Range Note Laboratory test finding 03/09/2021 [facility] [phone] Erythrocyte Sedimentation Rate 2 mm/hr Normal 0 -20 Anti Thrombin 3 Panel (Ag/ac) 03/09/2021 [facility] [phone] Anti Thrombin 3 Funct Activity 102 % Normal 7 5-135 1 Anti Thrombin 3 Antigen Immuno 101 % Normal 72-124 2 Laboratory test finding 03/09/2021 [facility] [phone] Protein C Antigen 102 % Normal 60-150 3 Protein S Antigen (Tot & Free) 03/09/2021 [facility] [phone] Protein S Antigen Total 107 % Normal 60-150 4 Protein S Antigen Free 108 % Normal 57-157 5 Antinuclear Antibodies 03/09/2021 [facility] [phone] Antinuclear Antibodies Direct Negative Normal Ne gative Factor II Prothrombin Gene Dna 03/09/2021 [facility] [phone] Factor II Prothrombin Gene An (SEE NOTE) Normal . 6 Factor 5 Leiden Profile 03/09/2021 [facility] [phone] Factor V Leiden For [facility] (SEE NOTE) Normal . 7 Anti-Cardiolipin Antibodies 03/09/2021 [facility] [phone] Cardiolipin Iga Antibody <9 APLU/mL Normal 0-11 8 Cardiolipin Igg Antibody <9 GPLU/mL Normal 0-14 9 Cardiolipin Igm Antibody <9 MPLU/mL Normal 0-12 10 Laboratory test finding 03/09/2021 [facility] [phone] Lupus Type Anticoagulant Scree 1.2 Normal 0 -1.2 11 Lupus Confirm Stago 1.20 Normal 0.00-1.20 12 Lupus Screen Confirmation 03/09/2021 [facility] [phone] Hexagonal Phase Phospholipid 0 sec Normal 0-1 1 Comment For Hexagonal Confirm1 (SEE NOTE) Normal . 13 Serum Protein Electrophoresis 03/09/2021 [facility] [phone] Albumin % 53.7 % Low 55.8-66.1 Fqnnd-9-Iqicpcse % 3.9 % Normal 2.9-4.9 Ckuay-8-Ejfwkkrgv % 10.2 % Normal 7.1-11.8 Zrvv-2-Kglydwlwn % 6.4 % Normal 4.7-7.2 Rybu-5-Bcvqtxiom % 7.8 % High 3.2-6.5 Gamma Globulin % 18.0 % Normal 11.1-18.8 Albumin 4.35 GM/DL Normal 3.29-5.55 Mrcgx-8-Mgzrqadoz 0.32 GM/DL Normal 0.17-0.41 Pqprq-7-Bvjzrbszy 0.83 GM/DL Normal 0.42-0.99 Cfyr-4-Ikndawpdz 0.52 GM/DL Normal 0.28-0.60 Zdci-9-Aijmgxphg 0.63 GM/DL High 0.19-0.55 Gamma Globulins 1.46 GM/DL Normal 0.65-1.58 Total Protein 8.1 GM/DL Normal 6.4-8.2 Spep Interpretation SEE COMMENT Normal 14 Spep Pathologist Review REV'D BY Kitty VINSON Normal Laboratory test finding 03/09/2021 [facility] [phone] Syphilis NONREACTIVE Normal Nonreactive Rheumatoid Factor Quant [...] developed and its performance characteristics determined by [employer]. It has not been cleared or approved by the Food and Drug Administration. 3 Performed at: - Lab[address] [id number] Food Preparation Supervisor: Tasha Huerta MD, Phone: [phone] Performed at: [facility] Lab[address] [id number] 61 Food Preparation Supervisor: Demario Campoverde MD, Phone: [phone] Performed at: [facility] [place] [address] [place], [place] [address] 097 Food Preparation Supervisor: Espinoza Bundy [facility], Phone: [phone] 4 This test was developed and its performance characteristics determined by [employer]. It has not been cleared or approved by the Food and Drug Administration. 5 This test was developed and its performance characteristics determined by [employer]. It has not been cleared or approved by the Food and Drug Administration. Effective April 12, 2021, the reference interval for Protein S, Free will be changing to: 61 - 136% 6 NEGATIVE No mutation identified. . Comment: A point mutation ([id number]) in the factor II (prothrombin) gene is [...] mutations. This assay detects only the prothrombin [id number] mutation and does not measure genetic abnormalities [...] health care providers to discuss results at [phone] ([phone]). . Methodology: DNA analysis of the Factor [...] developed and its performance characteristics determined by [employer]. It has not been cleared or approved by the Food and Drug Administration. . Poort SR, et al. Blood. 1996; 88:3781-5902. Erica EA. Circulation. 2004; 110:e15-e18. Hannah I, et al. Arterioscler Thromb Vasc Biol. 1999; 19:700-703. . Vicki Springer, PhD, [facility] Marylou Nicholson, PhD, [facility] W. Marge Obrien, PhD, FAC Heaven Fortune, PhD, [facility] Hue Muñoz, PhD, [facility] Pascual Ontiveros, PhD, [facility] 7 Result: Negative (no mutati [...] the workup for venous thrombosis include the [id number] mutation in the factor II (prothrombin) gene, protein S and C deficiency, and antithrombin deficiencies. Anticardiolipin antibody and lupus anticoagulant analysis may be appropriate for certain patients, as well as homocysteine levels. . Contact your local [facility] for information on how to order additional testing if desired. . . Genetic counselors are available for health care providers to discuss results at [phone]). . Methodology: DNA analysis of the Factor [...] developed and its performance characteristics determined by [facility]. It has not been cleared or approved by the Food and Drug Administration. . References: Lois Erazo (1996). Clin Lab Med 16:169-186. . Vicki Springer, PhD, FAC Marylou Nicholson, PhD, [facility] W. Marge Obrien, PhD, FAC Heaven Fortune, PhD, FAC Hue Muñoz, PhD, FAC Pascual Ontiveros PhD, [facility] 8 Negative: <12 Indeterminate: 12 [...] IS PRESENT. SPECIMEN WILL BE SENT TO [facility], [address] Rod Shook.Murtaza. [address] REFERE [facility] FOR CONFIRMATION. 13 . Results do not indicate the presence of a Lupus Anticoagulant: abnormal high screening results (PTT-LA, dRVVT, mixing studies), may be due to medication (heparin, warfarin, aspirin), Factor inhibitors, anticardiolipin antibodies, or poor specimen integrity. Performed at: [facility] [address] [id number] 61 Food Preparation Supervisor: Demario Campoverde MD, Phone: [phone] 14 NO M-SPIKE(S)NOTED. Procedures Date Code Description Status 03/18/2021 10882 Office/Outpatient Established Lo w MDM 20-29 Min Completed 01/22/2021 63278 Chronic Care MGMT 20 Mins Clinical Staff Time Per Calendar Month Completed 12/21/2020 84761 Chronic Care MGMT 20 Mins Clinical Staff Time Per Calendar Month Completed 12/09/2020 51786 Office/Outpatient Established Mo d MDM 30-39 Min Completed 12/09/2020 67245 Arterial Pressure Wa veform Analysis For Assessment Of Central Art Completed 12/09/2020 30129 ECG 12-Lead Completed 09/22/2020 83992 Chronic Care MGMT 20 Mins Clinical Staff Time Per Calendar Month Completed Medical Devices Description No Information Available Encounters Type Date Location Provider Dx Diagnosis Office Visit 03/18/2021 10:00a Main Office Ramez Bautista MD I63.9 Cerebral infarction, unspecified I10 Essential (primary) hyperten starr Office Visit 01/22/2021 2:31p Main Office Ramez Bautista MD I10 Essential (primary) hypertension I11.9 Hypertensive heart disease w [facility] heart failure Office Visit 12/21/2020 10:32a Main Office Ramez Bautista MD I10 Essential (primary) hypertension I11.9 Hypertensive heart disease w [facility] heart failure Office Visit 12/09/2020 9:00a Main Office Ramez Bautista MD I10 Essential (primary) hypertension I11.9 Hypertensive heart disease w [facility] heart failure R60.0 Localized edema I44.0 [...]
--- OUTSIDE RECORDS SUMMARY | 2021-03-30 11:05 | CCD | Continuity of Care Document ---
Author Kevin Lockhart M.D. Organization Unknown Address [address] [place] [address] Phone [phone] Care Team Providers Care Buttermaker Helper Name Role Phone Svitlana Mishra M.D. AUTM [phone] Problems Active Problems Provider Date Excessive day [...] lb BMI (Body Mass Index) 30.1 kg/m2 [place] Body Weight 166 lb Results Test Acquired Date Facility Test Result H/L Range Note Laboratory test finding 03/09/2021 [facility] Erythrocyte Sedimentation Rate 2 mm/hr Normal 0-20 Anti Thrombin 3 Panel (Ag/ac) 03/09/2021 [facility] Anti Thrombin 3 Funct Activity 102 % Normal 75-135 1 Anti Thrombin 3 Antigen Immuno 101 % Normal 72-124 2 Laboratory test finding 03/09/2021 [facility] Protein C Antigen 102 % Normal 60-150 3 Protein S Antigen (Tot & Free) 03/09/2021 [facility] Protein S Antigen Total 107 % Normal 60-150 4 Protein S Antigen Free 108 % Normal 57-157 5 Antinuclear Antibodies 03/09/2021 [facility] Antinuclear Antibodies Direct Negative Normal Negative Factor II Prothrombin Gene Dna 03/09/2021 [facility] Factor II Prothrombin Gene An (SEE NOTE) Normal . 6 Factor 5 Leiden Profile 03/09/2021 [facility] Factor V Leiden For [facility] (SEE NOTE) Normal . 7 Anti-Cardiolipin Antibodies 03/09/2021 [facility] Cardiolipin Iga Antibody <9 APLU/mL Normal 0-11 8 Cardiolipin Igg Antibody <9 GPLU/mL Normal 0-14 9 Cardiolipin Igm Antibody <9 MPLU/mL Normal 0-12 10 Laboratory test finding 03/09/2021 [facility] Lupus Type Anticoagulant Scree 1.2 Normal 0-1.2 11 Lupus Confirm Stago 1.20 Normal 0.00-1.20 12 Lupus Screen Confirmation 03/09/2021 [facility] Hexagonal Phase Phospholipid 0 sec Normal 0-11 Comment For Hexagonal Confirm1 (SEE NOTE) Normal . 13 Serum Protein Electrophoresis 03/09/2021 [facility] Albumin % 53.7 % Low 55.8-66.1 Zsapm-8-Mcomfkos % 3.9 % Normal 2.9-4.9 Dngmm-8-Spnrqrlig % 10.2 % Normal 7.1-11.8 Shcz-6-Wjtiektbp % 6.4 % Normal 4.7-7.2 Jfvu-4-Cfslrukqd % 7.8 % High 3.2-6.5 Gamma Globulin % 18.0 % Normal 11.1-18.8 Albumin 4.35 GM/DL Normal 3.29-5.55 Okejk-2-Occqbvreo 0.32 GM/DL Normal 0.17-0.41 Tbjes-3-Xxeerhlne 0.83 GM/DL Normal 0.42-0.99 Vlje-7-Lmbhxkawo 0.52 GM/DL Normal 0.28-0.60 Tlto-2-Ceprlmhlt 0.63 GM/DL High 0.19-0.55 Gamma Globulins 1.46 GM/DL Normal 0.65-1.58 Total Protein 8.1 GM/DL Normal 6.4-8.2 Spep Interpretation SEE COMMENT Normal 14 Spep Pathologist Review REV'D BY Kitty VINSON Normal Laboratory test finding 03/09/2021 [facility] Syphilis NONREACTIVE Normal Nonreactive Rheumatoid Factor Quant < 10.0 IU/mL Normal <15.0 1 Direct Xa inhibitor anticoag ulants such as rivaroxaban, apixaban and edoxaban will lead to spuriously elevated antithrombin activity levels possibly masking a deficiency. 2 This test was developed and its performance characteristics determined by [employer]. It has not been cleared or approved by the Food and Drug Administration. 3 Performed at: - [address] [id number] Carding Machine Feeder: Tasha Huerta MD, Phone: [phone] Performed at: [facility] [address] [id number] 18 Carding Machine Feeder: Demario Campoverde MD, Phone: [phone] Performed at: [facility] [address] [place], [place] [address] 444 Carding Machine Feeder: Espinoza Bundy [facility], Phone: [phone] 4 This test was developed and its performance characteristics determined by [employer]. It has not been cleared or approved by the Food and Drug Administration. 5 This test was developed and its performance characteristics determined by [facility]. It has not been cleared or approved by the Food and Drug Administration. Effective April 12, 2021, the reference interval for Protein S, Free will be changing to: 61 - 136% 6 NEGATIVE No mutation identified. . Comment: A point mutation ([id number]) in the factor II (prothrombin) gene is [...] mutations. This assay detects only the prothrombin [id number] mutation and does not measure genetic abnormalities [...] health care providers to discuss results at [phone] ([phone]). . Methodology: DNA analysis of the Factor [...] developed and its performance characteristics determined by [employer]. It has not been cleared or approved by the Food and Drug Administration. . Hildat SR, et al. Blood. 1996; 88:0109-7391. Erica EA. Circulation. 2004; 110:e15-e18. Hannah I, et al. Arterioscler Thromb Vasc Biol. 1999; 19:700-703. . Vicki Springer, PhD, [facility] Marylou Nicholson, PhD, FAC W. Marge Obrien, PhD, FAC Heaven Fortune, PhD, FAC Hue Muñoz, PhD, [facility] Pascual Ontiveros, PhD, [facility] 7 Result: Negative (no mutati on found) [...] the workup for venous thrombosis include the [id number] mutation in the factor II (prothrombin) gene, protein S and C deficiency, and antithrombin deficiencies. Anticardiolipin antibody and lupus anticoagulant analysis may be appropriate for certain patients, as well as homocysteine levels. . Contact your local [facility] for information on how to order additional testing if desired. . . Genetic counselors are available for health care providers to discuss results at [phone] ([phone]). . Methodology: DNA analysis of the Factor [...] developed and its performance characteristics determined by [facility]. It has not been cleared or [...] IS PRESENT. SPECIMEN WILL BE SENT TO [facility], [address] [facility] [address]. Charly Shook. [address] REFERE [facility] FOR CONFIRMATION. 13 . Results do not indicate the presence of a Lupus Anticoagulant: abnormal high screening results (PTT-LA, dRVVT, mixing studies), may be due to medication (heparin, warfarin, aspirin), Factor inhibitors, anticardiolipin antibodies, or poor specimen integrity. Performed at: [address] [id number] 61 Carding Machine Feeder: Demario Campoverde MD, Phone: [phone] 14 NO M-SPIKE(S)NOTED. Procedures Date Code Description Status 03/23/2021 04677 Office/Outpatient Established Mo d MDM 30-39 Min Completed 03/11/2021 32026 Magnetic Resonance Angiography N martinez W/O Contrast Materials Completed 03/11/2021 83873 Magnetic Resonance Angiography N martinez W/O Contrast Materials Completed 03/11/2021 80234 Magnetic Resonance Angiogtaphy H ead W/O Contrast Material(S) Completed 03/11/2021 47270 Magnetic Resonance Angiogtaphy H ead W/O Contrast Material(S) Completed 03/09/2021 36353 Office/Outpatient New Moderate M DM 45-59 Minutes Completed 03/09/2021 47630 MRI Brain W/O Contrast Completed 03/09/2021 86022 MRI Brain W/O Contrast Completed Medical Devices Description No Information Available Encounters Type Date Location Provider Dx Diagnosis Office Visit 03/23/2021 11:00a [facility] Rigoberto Craig I63.9 Cerebral infarction, unspecified M54.5 Low back pain H54.0x33 Blindness r eye category 3, blindness left eye category 3 Office Visit 03/09/2021 11:30a [facility] Rigoberto Craig 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 at [facility] Functional Status Description No Information Available Mental Status Description No Information Available Referrals Description No Information Available
--- OUTSIDE RECORDS SUMMARY | 2021-03-30 11:05 | CCD | Continuity of Care Document ---
Author Organization Unknown Address Unknown Phone Unavailable Care Team Providers Care Senior Office Assistant Name Role Phone Sincere Wyman MD AUTM [phone] Charlie Quinn AUTM [phone] Ramez Bautista M.D. AUTM [phone] Problems Active Problems Provider Date Essential hypertension Svitlana Mishra M.D. Onset: 12/15 Vitamin D deficiency Watson Lora M.D. Onset: 07/10 Mixed hyperlipidemia Watson Lora M.D. Onset: 07/10 Adjustment disorder with anxious mood Watson Lora M.D. Onset: 12/20/2012 Gout Watson Lora M.D. Onset: 2017 Chronic kidney disease stage 3 Watson Lora M.D. On set: 01/23/2018 Social History Type Date Description Comments Sex Unknown Tobacco Use Start: Unknown Former Cigarette Smoker Packs Da ricardo 2 for 15 years Tobacco Use Start: Unknown quit at age 51 Tobacco Use Start: Unknown Never Used Smokeless Tobacco ETOH Use Occasionally consumes alcohol Tobacco Use Start: Unknown End: Unknown Patient is a former smoker Recreational Drug Use Denies Drug Use Smoking Status Reviewed: 03/11/21 Patient is a former smoker Exercise Type/Frequency Does not exercise Tattoo/Piercing Tattoo Sun Exposure Does not use sunscreen Seat Belt/Car Seat Always uses seat belt Smoke Alarms Yes Smoke Alarms Carbon Monoxide Detector: Yes Allergies, Adverse Reactions, Alerts Active Allergies Reaction Severity Comments Date Spironolactone breast tenderness and enlarge Moderate 07/25/2017 Inactive Allergies NKDA 06/23/2003 Medications Active Medications SIG Qnty Indications Ordering Provide r Date Drisdol 1.25mg (97826 Ut) Capsules take 1 capsule by twice once a month 3caps Svitlana Mishra M.D. 01/14/2021 Vistaril 25mg Capsules take 1 tablet before bed for sleep 30caps Courtney Arias P A 07/25/2018 Levocetirizine Dihydrochloride 5mg Tablets 1 tab by mouth every evening for allergies 90tabs J30.9 Svitlana Mishra M.D. 01/24/2017 Triamcinolone Acetonide 0.5% Cream apply to affected area twice a day 30gm Svitlana Mishra M.D. 07/18/2013 Fluticasone Propionate 50mcg/Act Suspension 2 sprays each nostril once a day as needed 16gm J30.9 Svitlana Mishra M.D. 05/08/2012 Diltiazem CD 300mg Caps ER 24HR 1 by mouth every day Ramez Bautista M.D. Klor-Con 10 10Meq Tablets ER 1 tab by mouth twice a day Ramez Bautista M.D. 0 Allopurinol 100mg Tablets 1 by mouth every day Bridget Donato MD Hydralazine HCL 25mg Tablets 1 tab by mouth twice a day 180tabs Courtney Arias PA 0 Chlorthalidone 25mg Tablets take 1/2 tablet by mouth every morning Ramez Bautista M. D. Amiloride 5mg Tablets One tablet daily Ramez Bautista M.D. Aspirin 81 Low Dose 81mg Chewtabs 1 tab po daily Unknown Immunizations CPT Code Status Date Vaccine Lot # [id number] Given 11/02/2020 Moderna Sars-(Co vid-19) vaccine, mRNA, LNP-S, PF, 100 mcg/ 0.5 mL [id number] Given 10/05/2020 Moderna Sars-(Co vid-19) vaccine, mRNA, LNP-S, PF, 100 mcg/ 0.5 mL 48192 Given 01/25/2016 Pneumococcal Vaccine [id number] Given 01/22/2015 Prevnar 13 [id number] Given 04/13/2003 Tetnus & Dipther ia Toxoids Seven Years Or Older, Im Or Jet Inj Vital Signs Date Vital Result Comment 03/11/2021 8:54am BP Systolic 154 mmHg Pt machine 15 BP Diastolic 91 mmHg Pt machine 151/92 BP Systolic Recheck 155 mmHg BP Diastolic Recheck 89 mmHg Heart Rate 68 /min Body Temperature 96.8 F Respiratory Rate 17 /min Height 70 inches 5'10" Weight 220.38 lb O2 % BldC Oximetry 97 % Peak Expiratory Flow Rate 493 Estimated Peak Flow Rate [place] Body Weight 166 lb BMI (Body Mass Index) 31.6 kg/m2 01/14/2021 8:15am BP Systolic 166 mmHg 138/86 @ home other day BP Diastolic 97 mmHg 138/86 @ home other day BP Systolic Recheck 161 mmHg recheck BP Diastolic Recheck 89 mmHg recheck Heart Rate 76 /min Body Temperature 97.1 F Respiratory Rate 18 /min Height 70 inches 5'10" Weight 222.25 lb O2 % BldC Oximetry 96 % Peak Expiratory Flow Rate 493 Estimated Peak Flow Rate [place] Body Weight 166 lb BMI (Body Mass Index) 31.9 kg/m2 Results Test Acquired Date Facility Test Result H/L Range Note Hemoglobin A1c 03/11/2021 [facility] [address] [place] [address] [phone] Hemoglobin A1c 5.6 % 4.8-5.6 1, 2 CMP14 03/11/2021 [facility] [address] [place] [address] [phone] Sodium 138 mmol/L 134-144 Potassium 4.5 mmol/L 3.5-5.2 Chloride 105 mmol/L 96-106 Glucose 97 mg/dL 65-99 BUN 23 mg/dL 8-27 Creatinine 1.41 mg/dL High 0.76-1.27 eGFR If NonAfricn Am 49 mL/min/1.73 Low >59 eGFR If Africn Am 57 mL/min/1.73 Low >59 3 Carbon Dioxide, Total 21 mmol/L 20-29 Calcium 9.2 mg/dL 8.6-10.2 Protein, Total 7.6 g/dL 6.0-8.5 Albumin 4.4 g/dL 3.7-4.7 Globulin, Total 3.2 g/dL 1.5-4.5 A/G Ratio 1.4 1.2-2.2 Bilirubin, Total 0.6 mg/dL 0.0-1.2 Alkaline Phosphatase 71 IU/L 48-121 Ast (Sgot) 23 IU/L 0-40 Alt (SGPT) 18 IU/L 0-44 Laboratory test finding 03/09/2021 [facility] [place] [address] [phone] Erythrocyte Sedimentation Rate 2 mm/hr Normal 0 -20 Anti Thrombin 3 Panel (Ag/ac) 03/09/[address]21 [place] [address] [phone] Anti Thrombin 3 Funct Activity 102 % Normal 7 5-135 4 Anti Thrombin 3 Antigen Immuno 101 % Normal 72-124 5 Laboratory test finding 03/09/2021 [place] [address] [phone] Protein C Antigen 102 % Normal 60-150 6 Protein S Antigen (Tot & Free) 03/09/[address]21 [place] [address] [phone] Protein S Antigen Total 107 % Normal 60-150 7 Protein S Antigen Free 108 % Normal 57-157 8 Antinuclear Antibodies 03/09/2021 [place] [address] [phone] Antinuclear Antibodies Direct Negative Normal Ne gative Factor II Prothrombin Gene Dna 03/09/2021 [place] [address] [phone] Factor II Prothrombin Gene An (SEE NOTE) Normal . 9 Factor 5 Leiden Profile 03/09/2021 [place] [address] [phone] Factor V Leiden For [facility] (SEE NOTE) Normal . 10 Anti-Cardiolipin Antibodies 03/09/2021 [place] [address] [phone] Cardiolipin Iga Antibody <9 APLU/mL Normal 0-11 11 Cardiolipin Igg Antibody <9 GPLU/mL Normal 0-14 12 Cardiolipin Igm Antibody <9 MPLU/mL Normal 0-12 13 Laboratory test finding 03/09/2021 [place] [address] [phone] Lupus Type Anticoagulant Scree 1.2 Normal 0 -1.2 14 Lupus Confirm Stago 1.20 Normal 0.00-1.20 15 Lupus Screen Confirmation 03/09/2021 [place] [address] [phone] Hexagonal Phase Phospholipid 0 sec Normal 0-1 1 Comment For Hexagonal Confirm1 (SEE NOTE) Normal . 16 Serum Protein Electrophoresis 03/09/2021 [place] [address] [phone] Albumin % 53.7 % Low 55.8-66.1 Lpwci-5-Ihhzsuvh % 3.9 % Normal 2.9-4.9 Gnqmz-2-Rhdzsybbr % 10.2 % Normal 7.1-11.8 Mnfw-4-Vywicanry % 6.4 % Normal 4.7-7.2 Pizn-4-Tdclvsvwe % 7.8 % High 3.2-6.5 Gamma Globulin % 18.0 % Normal 11.1-18.8 Albumin 4.35 GM/DL Normal 3.29-5.55 Qqbgx-4-Poswmiqle 0.32 GM/DL Normal 0.17-0.41 Odiby-1-Relgzkrwj 0.83 GM/DL Normal 0.42-0.99 Jvfr-1-Httaifkwq 0.52 GM/DL Normal 0.28-0.60 Saei-4-Tuafasemz 0.63 GM/DL High 0.19-0.55 Gamma Globulins 1.46 GM/DL Normal 0.65-1.58 Total Protein 8.1 GM/DL Normal 6.4-8.2 Spep Interpretation SEE COMMENT Normal 17 Spep Pathologist Review REV'D BY Kitty VINSON Normal Laboratory test finding 03/09/2021 [place] [address] [phone] Syphilis NONREACTIVE Normal Nonreactive Rheumatoid Factor Quant < 10.0 IU/mL Normal <15.0 Laboratory test finding 03/08/2021 [place] [address] [phone] C Reactive Protein Quantitativ 0.74 mg/dL High 0 .00-0.30 Erythrocyte Sedimentation Rate 1 mm/hr Normal 0-20 1 A courtesy copy of this repo rt has been sent to the patient, 2 Prediabetes: 5.7 - 6.4 Diabetes: >6.4 Glycemic control for adults with diabetes: <7.0 3 [facility] currently reports eGFR in compliance with the current recommendations of the National Kidney Foundation. [facility] will update reporting as new guidelines are published from the NKF-ASN Task force. 4 Direct Xa inhibitor anticoag ulants such as rivaroxaban, apixaban and edoxaban will lead to spuriously elevated antithrombin activity levels possibly masking a deficiency. 5 This test was developed and its performance characteristics determined by [employer]. It has not been cleared or approved by the Food and Drug Administration. 6 Performed at: - [address] [id number] Explosives Mixer Operator: Tasha Huerta MD, Phone: [phone] Performed at: - [address] [id number] Explosives Mixer Operator: Demario Campoverde MD, Phone: [phone] Performed at: [facility] [address] [place], [place] [id number] 150 Explosives Mixer Operator: Espinoza Bundy [facility], Phone: [phone] This test was developed and its performance characteristics determined by [employer]. It has not been cleared or approved by the Food and Drug Administration. 8 This test was developed and its performance characteristics determined by [facility]. It has not been cleared or approved by the Food and Drug Administration. Effective April 12, 2021, the reference interval for Protein S, Free will be changing to: 61 - 136% 9 NEGATIVE No mutation identified. . Comment: A point mutation ([id number]) in the factor II (prothrombin) gene is [...] mutations. This assay detects only the prothrombin [id number] mutation and does not measure genetic abnormalities [...] health care providers to discuss results at [phone] [place] [place] ([phone]). . Methodology: DNA analysis of the Factor [...] developed and its performance characteristics determined by [employer]. It has not been cleared or approved by the Food and Drug Administration. . Poort SR, et al. Blood. 1996; 88:7544-0699. Erica DAVALOS. Circulation. 2004; 110:e15-e18. Hannah I, et al. Arterioscler Thromb Vasc Biol. 1999; 19:700-703. . Vicki Springer, PhD, FAC Marylou Nicholson, PhD, [facility] López Obrien, PhD, FAC Heaven Fortune, PhD, FAC Hue Muñoz, PhD, FAC Pascual Ontiveros, PhD, FAC 10 Result: Negative (no mutati on found) . [...] the workup for venous thrombosis include the [id number] mutation in the factor II (prothrombin) gene, protein S and C deficiency, and antithrombin deficiencies. Anticardiolipin antibody and lupus anticoagulant analysis may be appropriate for certain patients, as well as homocysteine levels. . Contact your local [facility] for information on how to order additional testing if desired. . . Genetic counselors are available for health care providers to discuss results at [phone] ([phone]). . Methodology: DNA analysis of the Factor [...] developed and its performance characteristics determined by [facility]. It has not been cleared or approved by the Food and Drug Administration. . References: Lois Erazo (1996). Clin Lab Med 16:169-186. . Vicki Springer, PhD, FAC Marylou Nicholson, PhD, FAC López Obrien, PhD, FAC Heaven Fortune, PhD, FAC Hue Muñoz, PhD, FAC Pascual Ontiveros PhD, FAC 11 Negative: <12 Indeterminate: 12 - 20 Low-Med Positive: >20 - 80 High Positive: >80 12 Negative: <15 Indeterminate: 15 - 20 Low-Med Positive: >20 - 80 High Positive: >80 13 Negative: <13 Indeterminate: 13 - 20 Low-Med Positive: >20 - 80 High Positive: >80 14 RESULT IS 1.2 OR GREATER, FURTHER TESTING [...] coagulation factor deficiency or a specific inhibitor. 15 NORMALIZED RATIO IS EQUAL TO OR GREATER THAN 1.20 LA IS PRESENT. SPECIMEN WILL BE SENT TO [facility], [address] [place]. [address] REFERE [facility] FOR CONFIRMATION. 16 . Results do not indicate the presence of a Lupus Anticoagulant: abnormal high screening results (PTT-LA, dRVVT, mixing studies), may be due to medication (heparin, warfarin, aspirin), Factor inhibitors, anticardiolipin antibodies, or poor specimen integrity. Performed at: [address] [id number] Explosives Mixer Operator: Demario Campoverde MD, Phone: [phone] NO M-SPIKE(S)NOTED. Procedures Date Code Description Status 03/11/2021 45866 Office/Outpatient Established Mo d MDM 30-39 Min Completed 01/14/2021 27563 Office/Outpatient Established Mo d MDM 30-39 Min Completed Medical Devices Description No Information Available Encounters Type Date Location Provider Dx Diagnosis Office Visit 03/11/2021 9:00a Main Office Svitlana Mishra M.D. R 73.01 Impaired fasting glucose Office Visit 01/14/2021 8:15a Main Office Svitlana Mishra M.D. N 18.30 Chronic kidney disease, stage 3 unspecified I10 Essential (primary) hyperten starr E78.2 Mixed hyperlipidemia M10.9 Gout, unspecified Z00.00 Encntr for general adult med ical exam w/o abnormal findings Assessments Date Code Description Provider 03/11/2021 R73.01 Impaired fasting glucose Svitlana Kennedy M.D. 01/14/2021 N18.30 Chronic kidney disease, stage 3 unspecified Svitlana Mishra M.D. 01/14/2021 I10 Essential (primary) hypertension Svitlana Mishra M.D. 01/14/2021 E78.2 Mixed hyperlipidemia Castro Mishra M.D. 01/14/2021 M10.9 Gout, unspecified Catarina Mishra M.D. 01/14/2021 Z00.00 Encounter for genera l adult medical examination without abnormal findings Svitlana Mishra M.D. Plan of Treatment Future Appointment(s):* 07/16/2021 9:00 am - Svitlana Mishra M.D. at Main Office 03/11/2021 - Svitlana Mishra M.D.* R73.01 Impaired fasting glucose* Comments:* reviewed labs we have and highest sugar is 100, but given cardiovascular disease we will repeat labs and check A1c. Functional Status Functional Condition Comment Date Status Independent with all ADL's Activ e Trifocal glasses Active Independent with all IADL's Acti ve Mental Status Mental Condition Comment Date Status None Active Referrals Description No Information Available
--- OUTSIDE RECORDS SUMMARY | 2021-03-30 11:05 | CCD | Continuity of Care Document ---
Author Kevin Lockhart M.D. Organization Unknown Address [address] [place] [id number] Phone [phone] Care Team Providers Care Engineering Design Manager Name Role Phone Svitlana Mishra M.D. AUTM [phone] Problems Active Problems Provider Date Excessive day [...] lb BMI (Body Mass Index) 30.1 kg/m2 [place] Body Weight 166 lb Results Test Acquired Date Facility Test Result H/L Range Note Laboratory test finding 03/09/2021 [facility] Erythrocyte Sedimentation Rate 2 mm/hr Normal 0-20 Anti Thrombin 3 Panel (Ag/ac) 03/09/2021 [facility] Anti Thrombin 3 Funct Activity 102 % Normal 75-135 1 Anti Thrombin 3 Antigen Immuno 101 % Normal 72-124 2 Laboratory test finding 03/09/2021 [facility] Protein C Antigen 102 % Normal 60-150 3 Protein S Antigen (Tot & Free) 03/09/2021 [facility] Protein S Antigen Total 107 % Normal 60-150 4 Protein S Antigen Free 108 % Normal 57-157 5 Antinuclear Antibodies 03/09/2021 [facility] Antinuclear Antibodies Direct Negative Normal Negative Factor II Prothrombin Gene Dna 03/09/2021 [facility] Factor II Prothrombin Gene An (SEE NOTE) Normal . 6 Factor 5 Leiden Profile 03/09/2021 [facility] Factor V Leiden For [facility] (SEE NOTE) Normal . 7 Anti-Cardiolipin Antibodies 03/09/2021 [facility] Cardiolipin Iga Antibody <9 APLU/mL Normal 0-11 8 Cardiolipin Igg Antibody <9 GPLU/mL Normal 0-14 9 Cardiolipin Igm Antibody <9 MPLU/mL Normal 0-12 10 Laboratory test finding 03/09/2021 [facility] Lupus Type Anticoagulant Scree 1.2 Normal 0-1.2 11 Lupus Confirm Stago 1.20 Normal 0.00-1.20 12 Lupus Screen Confirmation 03/09/2021 [facility] Hexagonal Phase Phospholipid 0 sec Normal 0-11 Comment For Hexagonal Confirm1 (SEE NOTE) Normal . 13 Serum Protein Electrophoresis 03/09/2021 [facility] Albumin % 53.7 % Low 55.8-66.1 Pamgf-0-Goxfncse % 3.9 % Normal 2.9-4.9 Szdgx-2-Iqtlsmyvd % 10.2 % Normal 7.1-11.8 Aiwq-9-Lcqiynfof % 6.4 % Normal 4.7-7.2 Npul-9-Ebulrictb % 7.8 % High 3.2-6.5 Gamma Globulin % 18.0 % Normal 11.1-18.8 Albumin 4.35 GM/DL Normal 3.29-5.55 Dnrgf-0-Jliumvyxs 0.32 GM/DL Normal 0.17-0.41 Mjgjj-5-Frbkxljbe 0.83 GM/DL Normal 0.42-0.99 Xllf-2-Mhutatfpu 0.52 GM/DL Normal 0.28-0.60 Zyux-6-Tdejglbpu 0.63 GM/DL High 0.19-0.55 Gamma Globulins 1.46 GM/DL Normal 0.65-1.58 Total Protein 8.1 GM/DL Normal 6.4-8.2 Spep Interpretation SEE COMMENT Normal 14 Spep Pathologist Review REV'D BY Kitty VINSON Normal Laboratory test finding 03/09/2021 [facility] Syphilis NONREACTIVE Normal Nonreactive Rheumatoid Factor Quant < 10.0 IU/mL Normal <15.0 1 Direct Xa inhibitor anticoag ulants such as rivaroxaban, apixaban and edoxaban will lead to spuriously elevated antithrombin activity levels possibly masking a deficiency. 2 This test was developed and its performance characteristics determined by [facility]. It has not been cleared or approved by the Food and Drug Administration. 3 Performed at: - Lab[address] [id number] Global Marketing Coordinator: Tasha Huerta MD, Phone: [phone] Performed at: [facility] [address] [id number] Global Marketing Coordinator: Demario Campoverde MD, Phone: [phone] Performed at: [facility] [address] [place], [place] [address] 809 Global Marketing Coordinator: Espinoza Bundy [facility], Phone: [phone] 4 This test was developed and its performance characteristics determined by [facility]. It has not been cleared or approved by the Food and Drug Administration. 5 This test was developed and its performance characteristics determined by [facility]. It has not been cleared or approved by the Food and Drug Administration. Effective April 12, 2021, the reference interval for Protein S, Free will be changing to: 61 - 136% 6 NEGATIVE No mutation identified. . Comment: A point mutation ([id number]) in the factor II (prothrombin) gene is [...] mutations. This assay detects only the prothrombin [id number] mutation and does not measure genetic abnormalities [...] health care providers to discuss results at [phone]). . Methodology: DNA analysis of the Factor [...] developed and its performance characteristics determined by [employer]. It has not been cleared or approved by the Food and Drug Administration. . Hildat SR, et al. Blood. 1996; 88:0177-6471. Erica EA. Circulation. 2004; 110:e15-e18. Hannah I, et al. Arterioscler Thromb Vasc Biol. 1999; 19:700-703. . Vicki Springer, PhD, [facility] Marylou Nicholson, PhD, FAC W. Marge Obrien, PhD, FAC Heaven Fortune, PhD, FAC Hue Muñoz, PhD, [facility] Pascual Ontiveros, PhD, [facility] 7 Result: Negative (no mutati [...] the workup for venous thrombosis include the [id number] mutation in the factor II (prothrombin) gene, protein S and C deficiency, and antithrombin deficiencies. Anticardiolipin antibody and lupus anticoagulant analysis may be appropriate for certain patients, as well as homocysteine levels. . Contact your local [facility] for information on how to order additional testing if desired. . . Genetic counselors are available for health care providers to discuss results at [phone] ([phone]). . Methodology: DNA analysis of the Factor [...] developed and its performance characteristics determined by [facility]. It has not been cleared or [...] IS PRESENT. SPECIMEN WILL BE SENT TO [facility], [address] [facility] [address]. [place]. [phone] REFERE COUNTS INCLUDE 234 BEDS AT THE [facility] FOR CONFIRMATION. 13 . Results do not indicate the presence of a Lupus Anticoagulant: abnormal high screening results (PTT-LA, dRVVT, mixing studies), may be due to medication (heparin, warfarin, aspirin), Factor inhibitors, anticardiolipin antibodies, or poor specimen integrity. Performed at: [address] [id number] Global Marketing Coordinator: Demario Campoverde MD, Phone: [phone] NO M-SPIKE(S)NOTED. Procedures Date Code Description Status 03/23/2021 90767 Office/Outpatient Established Mo d MDM 30-39 Min Completed 03/11/2021 32765 Magnetic Resonance Angiography N martinez W/O Contrast Materials Completed 03/11/2021 11941 Magnetic Resonance Angiography N martinez W/O Contrast Materials Completed 03/11/2021 79606 Magnetic Resonance Angiogtaphy H ead W/O Contrast Material(S) Completed 03/11/2021 04704 Magnetic Resonance Angiogtaphy H ead W/O Contrast Material(S) Completed 03/09/2021 22640 Office/Outpatient New Moderate M DM 45-59 Minutes Completed 03/09/2021 14582 MRI Brain W/O Contrast Completed 03/09/2021 20755 MRI Brain W/O Contrast Completed Medical Devices Description No Information Available Encounters Type Date Location Provider Dx Diagnosis Office Visit 03/23/2021 11:00a [facility] Rigoberto Craig I63.9 Cerebral infarction, unspecified M54.5 Low back pain H54.0x33 Blindness r eye category 3, blindness left eye category 3 Office Visit 03/09/2021 11:30a [facility] Rigoberto Craig 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 at [facility] Functional Status Description No Information Available Mental Status Description No Information Available Referrals Description No Information Available
--- OUTSIDE RECORDS SUMMARY | 2021-03-30 11:06 | CCD | Continuity of Care Document ---
Author Organization Unknown Address Unknown Phone Unavailable Care Team Providers Care Manager Chemistry Name Role Phone Sincere Wyman MD AUTM [phone] Charlie Quinn AUTM [phone] Ramez Bautista M.D. AUTM [phone] Problems Active Problems Provider Date Essential hypertension vSitlana Mishra M.D. Onset: 12/15 Vitamin D deficiency [...] Indications Ordering Provide r Date Drisdol 1.25mg (92740 Ut) Capsules take 1 capsule by twice [...] take 1/2 tablet by mouth every morning aRmez Bautista M. D. Amiloride 5mg Tablets One tablet daily Ramez Bautista M.D. Aspirin 81 Low Dose 81mg Chewtabs 1 tab po daily Unknown Immunizations CPT Code Status Date Vaccine Lot # [id number] Given 11/02/2020 Moderna Sars-(Co vid-19) vaccine, mRNA, LNP-S, PF, 100 mcg/ 0.5 mL 99125 Given 10/05/2020 Moderna Sars-(Co vid-19) vaccine, mRNA, LNP-S, PF, 100 mcg/ 0.5 mL 46573 Given 01/25/2016 Pneumococcal Vaccine [id number] Given 01/22/2015 Prevnar 13 [id number] 82202 Given 04/13/2003 Tetnus & Dipther ia Toxoids [...] Flow Rate 493 Estimated Peak Flow Rate [place] Body Weight 166 lb BMI (Body Mass [...] Flow Rate 493 Estimated Peak Flow Rate [place] Body Weight 166 lb BMI (Body Mass Index) 31.9 kg/m2 Results Test Acquired Date Facility Test Result H/L Range Note Hemoglobin A1c 03/11/2021 [facility] [address] [place] [address] [phone] Hemoglobin A1c 5.6 % 4.8-5.6 1, 2 CMP14 03/11/2021 [facility] [address] [place] [address] [phone] Sodium 138 mmol/L 134-144 Potassium 4.5 mmol/L [...] Laboratory test finding 03/09/2021 [place] [address] [phone] Erythrocyte Sedimentation Rate 2 mm/hr Normal 0 -20 Anti Thrombin 3 Panel (Ag/ac) 03/09/20[place] [address] [phone] Anti Thrombin 3 Funct Activity 102 % Normal 7 5-135 4 Anti Thrombin 3 Antigen Immuno 101 % Normal 72-124 5 Laboratory test finding 03/09/2021 [place] [address] [phone] Protein C Antigen 102 % Normal 60-150 6 Protein S Antigen (Tot & Free) 03/09/20[address] [place] [address] [phone] Protein S Antigen Total 107 % Normal 60-150 7 Protein S Antigen Free 108 % Normal 57-157 8 Antinuclear Antibodies 03/09/2021 [place] [address] [phone] Antinuclear Antibodies Direct Negative Normal Ne gative Factor II Prothrombin Gene Dna 03/09/20[place] [address] [phone] Factor II Prothrombin Gene An (SEE NOTE) Normal . 9 Factor 5 Leiden Profile 03/09/2021 [place] [address] [phone] Factor V Leiden For [facility] (SEE NOTE) Normal . 10 Anti-Cardiolipin Antibodies 03/09/2021 [place] [address] [phone] Cardiolipin Iga Antibody <9 APLU/mL Normal 0-11 11 Cardiolipin Igg Antibody <9 GPLU/mL Normal 0-14 12 Cardiolipin Igm Antibody <9 MPLU/mL Normal 0-12 13 Laboratory test finding 03/09/2021 Patient [place] [address] [phone] Lupus Type Anticoagulant Scree 1.2 Normal 0 -1.2 14 Lupus Confirm Stago 1.20 Normal 0.00-1.20 15 Lupus Screen Confirmation 03/09/2021 [place] [address] [phone] Hexagonal Phase Phospholipid 0 sec Normal 0-1 1 Comment For Hexagonal Confirm1 (SEE NOTE) Normal . 16 Serum Protein Electrophoresis 03/09/2021 [place] [address] [phone] Albumin % 53.7 % Low 55.8-66.1 Mxwye-3-Pldkhnyb % 3.9 % Normal 2.9-4.9 Agmrk-5-Vvsrsrdkz % 10.2 % Normal 7.1-11.8 Chis-5-Qwrnqwaaj % 6.4 % Normal 4.7-7.2 Jepq-4-Fvtfhyxbf % 7.8 % High 3.2-6.5 Gamma Globulin % 18.0 % Normal 11.1-18.8 Albumin 4.35 GM/DL Normal 3.29-5.55 Vtyzb-6-Ivkwzpuxw 0.32 GM/DL Normal 0.17-0.41 Dnhtu-1-Wflanbwbe 0.83 GM/DL Normal 0.42-0.99 Vtzy-3-Dfppegqxm 0.52 GM/DL Normal 0.28-0.60 Bgvy-2-Yrywgwoxx 0.63 GM/DL High 0.19-0.55 Gamma Globulins 1.46 GM/DL Normal 0.65-1.58 Total Protein 8.1 GM/DL Normal 6.4-8.2 Spep Interpretation SEE COMMENT Normal 17 Spep Pathologist Review REV'D BY Kitty VINSON Normal Laboratory test finding 03/09/2021 [place] [address] [phone] Syphilis NONREACTIVE Normal Nonreactive Rheumatoid Factor Quant < 10.0 IU/mL Normal <15.0 Laboratory test finding 03/08/2021 [place] [address] [phone] C Reactive Protein Quantitativ 0.74 mg/dL High 0 .00-0.30 Erythrocyte Sedimentation Rate 1 mm/hr Normal 0-20 1 A courtesy copy of this repo rt has been sent to the patient, 2 Prediabetes: 5.7 - 6.4 Diabetes: >6.4 Glycemic control for adults with diabetes: <7.0 3 [facility] currently reports eGFR in compliance with the current recommendations of the National Kidney Foundation. [facility] will update reporting as new guidelines are published from the NKF-ASN Task force. 4 Direct Xa inhibitor anticoag ulants such as rivaroxaban, apixaban and edoxaban will lead to spuriously elevated antithrombin activity levels possibly masking a deficiency. 5 This test was developed and its performance characteristics determined by [employer]. It has not been cleared or approved by the Food and Drug Administration. 6 Performed at: - [address] [id number] Residential Manager: Tasha Huerta MD, Phone: [phone] Performed at: - [address] [id number] 10 Residential Manager: Demario Campoverde MD, Phone: [phone] Performed at: [facility] [address] [place], [place] [address] 150 Residential Manager: Espinoza Bundy [facility], Phone: [phone] 7 This test was developed and its performance characteristics determined by [employer]. It has not been cleared or approved by the Food and Drug Administration. 8 This test was developed and its performance characteristics determined by [facility]. It has not been cleared or approved by the Food and Drug Administration. Effective April 12, 2021, the reference interval for Protein S, Free will be changing to: 61 - 136% 9 NEGATIVE No mutation identified. . Comment: A point mutation ([id number]) in the factor II (prothrombin) gene is [...] mutations. This assay detects only the prothrombin [id number] mutation and does not measure genetic abnormalities [...] health care providers to discuss results at [phone] ([phone]). . Methodology: DNA analysis of the Factor [...] developed and its performance characteristics determined by [employer]. It has not been cleared or approved by the Food and Drug Administration. . Poort SR, et al. Blood. 1996; 88:5674-1634. Erica DAVALOS. Circulation. 2004; 110:e15-e18. Hannah I, et al. Arterioscler Thromb Vasc Biol. 1999; 19:700-703. . Vicki Springer, PhD, FAC Marylou Nicholson, PhD, [facility] López Obrien, PhD, FAC Heaven Fortune, PhD, [...] the workup for venous thrombosis include the [id number] mutation in the factor II (prothrombin) gene, protein S and C deficiency, and antithrombin deficiencies. Anticardiolipin antibody and lupus anticoagulant analysis may be appropriate for certain patients, as well as homocysteine levels. . Contact your local [facility] for information on how to order additional testing if desired. . . Genetic counselors are available for health care providers to discuss results at [phone]). . Methodology: DNA analysis of the Factor [...] developed and its performance characteristics determined by [facility]. It has not been cleared or [...] IS PRESENT. SPECIMEN WILL BE SENT TO [facility], [address] [place]. [address] [facility] FOR CONFIRMATION. 16 . Results do not indicate the presence of a Lupus Anticoagulant: abnormal high screening results (PTT-LA, dRVVT, mixing studies), may be due to medication (heparin, warfarin, aspirin), Factor inhibitors, anticardiolipin antibodies, or poor specimen integrity. Performed at: [address] [id number] 61 Residential Manager: Demario Campoverde MD, Phone: [phone] 17 NO M-SPIKE(S)NOTED. Procedures Date Code Description Status 03/11/2021 04474 Office/Outpatient Established Mo d MDM 30-39 Min Completed 01/14/2021 42071 Office/Outpatient Established Mo d MDM 30-39 Min [...]
--- OUTSIDE RECORDS SUMMARY | 2021-03-30 11:06 | CCD | Continuity of Care Document ---
Author Author Kevin FERRARO M.D. Organization Unknown Address [address] [place] [address] Phone [phone] Care Team Providers Care Food Science Professor Name Role Phone Sincere Wyman MD AUTM [phone] Charlie Quinn AUT [phone] Ramez Bautista M.D. AUTM [phone] Problems Active Problems Provider Date Essential hypertension Svitlana Ferraro M.D. Onset: 12/15 Vitamin D deficiency Watson Lora M.D. Onset: 07/10 Mixed hyperlipidemia Watson Lora M.D. Onset: 07/10 Adjustment disorder with anxious mood Watson Lora M.D. Onset: 12/20/2012 Chronic kidney disease stage 3 Watson Lora M.D. On set: 01/23/2018 Gout Watson Lora M.D. Onset: 2017 Social History Type Date Description Comments Sex [...] Indications Ordering Provide r Date Drisdol 1.25mg (65524 Ut) Capsules take 1 capsule by twice once a month 3caps Svitlana Ferraro M.D. 01/14/2021 Vistaril 25mg Capsules take 1 tablet before bed for sleep 30caps Courtney Arias P A 07/25/2018 Levocetirizine Dihydrochloride 5mg Tablets 1 tab by mouth every evening for allergies 90tabs J30.9 Svitlana Ferraro M.D. 01/24/2017 Triamcinolone Acetonide 0.5% Cream apply to affected area twice a day 30gm Svitlana Ferraro M.D. 07/18/2013 Fluticasone Propionate 50mcg/Act Suspension 2 sprays each nostril once a day as needed 16gm J30.9 Svitlana Ferraro M.D. 05/08/2012 Diltiazem CD 300mg Caps ER [...] CPT Code Status Date Vaccine Lot # [id number] Given 11/02/2020 Moderna Sars-(Co vid-19) vaccine, mRNA, LNP-S, PF, 100 mcg/ 0.5 mL 84604 Given 10/05/2020 Moderna Sars-(Co vid-19) vaccine, mRNA, LNP-S, PF, 100 mcg/ 0.5 mL 27681 Given 01/25/2016 Pneumococcal Vaccine [id number] 43026 Given 01/22/2015 Prevnar 13 [id number] 39291 Given 04/13/2003 Tetnus & Dipther ia Toxoids Seven Years Or Older, Im Or Jet Inj Vital Signs Date Vital Result Comment 03/11/2021 8:54am BP Systolic 154 mmHg Pt machine 15 1/ BP Diastolic 91 mmHg Pt machine 151/92 BP Systolic Recheck 155 mmHg BP Diastolic Recheck 89 mmHg Heart Rate 68 /min Body Temperature 96.8 F Respiratory Rate 17 /min Height 70 inches 5'10" Weight 220.38 lb O2 % BldC Oximetry 97 % Peak Expiratory Flow Rate 493 Estimated Peak Flow Rate [place] Body Weight 166 lb BMI (Body Mass [...] Flow Rate 493 Estimated Peak Flow Rate [place] Body Weight 166 lb BMI (Body Mass Index) 31.9 kg/m2 Results Test Acquired Date Facility Test Result H/L Range Note Hemoglobin A1c 03/11/2021 [facility] [address] [place], [place] [address] [phone] Hemoglobin A1c 5.6 % 4.8-5.6 1, 2 CMP14 03/11/2021 [facility] [address] [place] [address] [phone] Sodium 138 mmol/L 134-144 Potassium 4.5 mmol/L [...] Laboratory test finding 03/09/2021 [place] [address] [phone] Erythrocyte Sedimentation Rate 2 mm/hr Normal 0 -20 Laboratory test finding 03/09/2021 [place] [address] [phone] Lupus Type Anticoagulant Scree 1.2 Normal 0 -1.2 4 Lupus Confirm Stago 1.20 Normal 0.00-1.20 5 Lupus Screen Confirmation 03/09/2021 [place] [address] [phone] Hexagonal Phase Phospholipid 0 sec Normal 0-1 1 Comment For Hexagonal Confirm1 (SEE NOTE) Normal . 6 Laboratory test finding 03/08/2021 [place] [address] [phone] C Reactive Protein Quantitativ 0.74 mg/dL High 0 .00-0.30 Erythrocyte Sedimentation Rate 1 mm/hr Normal 0-20 1 A courtesy copy of this repo rt has been sent to the patient, 2 Prediabetes: 5.7 - 6.4 Diabetes: >6.4 Glycemic control for adults with diabetes: <7.0 3 [facility] currently reports eGFR in compliance with the current recommendations of the National Kidney Foundation. [facility] will update reporting as new guidelines are published from the NKF-ASN Task force. 4 RESULT IS 1.2 OR GREATER, FURTHER TESTING [...] coagulation factor deficiency or a specific inhibitor. 5 NORMALIZED RATIO IS EQUAL TO OR GREATER THAN 1.20 LA IS PRESENT. SPECIMEN WILL BE SENT TO [facility], [address] [place]. [address] [facility]. 6 . Results do not indicate the presence of a Lupus Anticoagulant: abnormal high screening results (PTT-LA, dRVVT, mixing studies), may be due to medication (heparin, warfarin, aspirin), Factor inhibitors, anticardiolipin antibodies, or poor specimen integrity. Performed at: [address] [id number] Drill Punch Operator: Demario Campoverde MD, Phone: [phone] Procedures Date Code Description Status 03/11/2021 31675 Office/Outpatient Established Mo d MDM 30-39 Min Completed 01/14/2021 82370 Office/Outpatient Established Mo d MDM 30-39 Min Completed Medical Devices Description No Information Available Encounters Type Date Location Provider Dx Diagnosis Office Visit 03/11/2021 9:00a Main Office Svitlana Ferraro M.D. R 73.01 Impaired fasting glucose Office Visit 01/14/2021 8:15a Main Office Svitlana Ferraro M.D. N 18.30 Chronic kidney disease, stage 3 unspecified I10 Essential (primary) hyperten starr E78.2 Mixed hyperlipidemia M10.9 Gout, unspecified Z00.00 Encntr for general adult med ical exam w/o abnormal findings Assessments Date Code Description Provider 03/11/2021 R73.01 Impaired fasting glucose Svitlana Kennedy M.D. 01/14/2021 N18.30 Chronic kidney disease, stage 3 unspecified Svitlana Ferraro M.D. 01/14/2021 I10 Essential (primary) hypertension Svitlana Ferraro M.D. 01/14/2021 E78.2 Mixed hyperlipidemia Castro Ferraro M.D. 01/14/2021 M10.9 Gout, unspecified Catarina Ferraro M.D. 01/14/2021 Z00.00 Encounter for genera l adult medical examination without abnormal findings Svitlana Ferraro M.D. Plan of Treatment Future Appointment(s):* 07/16/2021 9:00 am - Svitlana Ferraro M.D. at Main Office 03/11/2021 - Svitlana Ferraro M.D.* R73.01 Impaired fasting glucose* Comments:* reviewed [...]
--- OUTSIDE RECORDS SUMMARY | 2021-03-30 11:06 | CCD | Continuity of Care Document ---
Author Author Kevin FERRARO M.D. Organization Unknown Address [address] [place] [address] Phone [phone] Care Team Providers Care Speeder Worker Name Role Phone Sincere Wyman MD AUTM [phone] Charlie Quinn AUT [phone] Ramez Bautista M.D. AUTM [phone] Problems Active Problems Provider Date Essential hypertension [...] Indications Ordering Provide r Date Drisdol 1.25mg (77421 Ut) Capsules take 1 capsule by twice [...] CPT Code Status Date Vaccine Lot # [id number] Given 11/02/2020 Moderna Sars-(Co vid-19) vaccine, mRNA, LNP-S, PF, 100 mcg/ 0.5 mL 41647 Given 10/05/2020 Moderna Sars-(Co vid-19) vaccine, mRNA, LNP-S, PF, 100 mcg/ 0.5 mL 50352 Given 01/25/2016 Pneumococcal Vaccine [id number] 85715 Given 01/22/2015 Prevnar 13 [id number] 94906 Given 04/13/2003 Tetnus & Dipther ia Toxoids [...] Flow Rate 493 Estimated Peak Flow Rate [place] Body Weight 166 lb BMI (Body Mass [...] Flow Rate 493 Estimated Peak Flow Rate [place] Body Weight 166 lb BMI (Body Mass Index) 31.9 kg/m2 Results Test Acquired Date Facility Test Result H/L Range Note Laboratory test finding 03/09/2021 [place] [address] [phone] Erythrocyte Sedimentation Rate 2 mm/hr Normal 0 -20 Laboratory test finding 03/09/2021 [facility] [place] [id number] [phone] Lupus Type Anticoagulant Scree 1.2 Normal 0 -1.2 1 Lupus Confirm Stago 1.20 Normal 0.00-1.20 2 Laboratory test finding 03/08/2021 [place] [address] [phone] C Reactive Protein Quantitativ 0.74 mg/dL High 0 .00-0.30 Erythrocyte Sedimentation Rate 1 mm/hr Normal 0-20 1 RESULT IS 1.2 OR GREATER, FURTHER TESTING [...] coagulation factor deficiency or a specific inhibitor. 2 NORMALIZED RATIO IS EQUAL TO OR GREATER THAN 1.20 LA IS PRESENT. SPECIMEN WILL BE SENT TO [facility], [address] [place]. [address] [facility]. Procedures Date Code Description Status 03/11/2021 81856 Office/Outpatient Established Mo d MDM 30-39 Min Completed 01/14/2021 35307 Office/Outpatient Established Mo d MDM 30-39 Min [...] Svitlana Ferraro M.D.* R73.01 Impaired fasting glucose* New Labs:* Hemoglobin A1c, Scheduled: 03/11/21 * CMP14, Scheduled: 03/11/21 * Comments:* reviewed labs we have and highest [...]
--- OUTSIDE RECORDS SUMMARY | 2021-03-30 11:06 | CCD | Continuity of Care Document ---
Author Author Kevin FALLON Organization [place] [address] Phone [phone] Care Team Providers Care Approver Name Role Phone Svit[facility] Mishra M.D. [facility] [phone] Problems Active Problems Provider Date Excessive day [...] lb BMI (Body Mass Index) 30.1 kg/m2 [place] Body Weight 166 lb Results Test Acquired Date Facility Test Result H/L Range Note Laboratory test finding 03/09/[address] [facility] Erythrocyte Sedimentation Rate 2 mm/hr Normal 0-20 Laboratory test finding 03/09/[address] [facility] Lupus Type Anticoagulant Scree 1.2 Normal 0-1.2 1 Lupus Confirm Stago 1.20 Normal 0.00-1.20 2 Lupus Screen Confirmation 03/09/[address] [facility] Hexagonal Phase Phospholipid 0 sec Normal 0-11 Comment For Hexagonal Confirm1 (SEE NOTE) Normal . 3 Serum Protein Electrophoresis 03/09/[address] [facility] Albumin % 53.7 % Low 55.8-66.1 Yrxnf-2-Kmxmzqum % 3.9 % Normal 2.9-4.9 Ewgqw-8-Chiqdvczl % 10.2 % Normal 7.1-11.8 Lgjm-9-Rvbooegcl % 6.4 % Normal 4.7-7.2 Fijt-6-Liiqbvbia % 7.8 % High 3.2-6.5 Gamma Globulin % 18.0 % Normal 11.1-18.8 Albumin 4.35 GM/DL Normal 3.29-5.55 Fhwyw-4-Ndoavivqa 0.32 GM/DL Normal 0.17-0.41 Awcfc-6-Eonjqaulw 0.83 GM/DL Normal 0.42-0.99 Viep-4-Ucagprzmt 0.52 GM/DL Normal 0.28-0.60 Wnmg-2-Geslwqqds 0.63 GM/DL High 0.19-0.55 Gamma Globulins 1.46 GM/DL Normal 0.65-1.58 Total Protein 8.1 GM/DL Normal 6.4-8.2 Spep Interpretation SEE COMMENT Normal 4 Spep Pathologist Review REV'D BY Kitty VINSON Normal Laboratory test finding 03/09/[address] [facility] Syphilis NONREACTIVE Normal Nonreactive Rheumatoid Factor Quant < 10.0 IU/mL Normal <15.0 1 RESULT IS 1.2 OR GREATER, FURTHER [...] IS PRESENT. SPECIMEN WILL BE SENT TO [facility], [address] [place]. [address] [facility] FOR CONFIRMATION. 3 . Results do not indicate the presence of a Lupus Anticoagulant: abnormal high screening results (PTT-LA, dRVVT, mixing studies), may be due to medication (heparin, warfarin, aspirin), Factor inhibitors, anticardiolipin antibodies, or poor specimen integrity. Performed at: [facility] [id number] 61 Chemical Plant Manager: Demario Campoverde MD, Phone: [phone] 4 NO M-SPIKE(S)NOTED. Procedures Date Code Description Status 03/11/2021 73775 Magnetic Resonance Angiography N martinez W/O Contrast Materials Completed 03/11/2021 30458 Magnetic Resonance Angiography N martinez W/O Contrast Materials Completed 03/11/2021 40692 Magnetic Resonance Angiogtaphy H ead W/O Contrast Material(S) Completed 03/11/2021 62607 Magnetic Resonance Angiogtaphy H ead W/O Contrast Material(S) Completed 03/09/2021 57840 Office/Outpatient New Moderate M DM 45-59 Minutes Completed 03/09/2021 77347 MRI Brain W/O Contrast Completed 03/09/2021 33588 MRI Brain W/O Contrast Completed Medical Devices Description No Information Available Encounters Type Date Location Provider Dx Diagnosis Office Visit 03/09/2021 11:30a Main office - [place] Rigoberto Craig 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 Plan of Treatment Future Appointment(s):* 03/23/2021 11:00 am - Ramón Mejia M.D. at Main office - [place] Functional Status Description No Information Available Mental Status Description No Information Available Referrals Description No Information Available
--- OUTSIDE RECORDS SUMMARY | 2021-03-30 11:06 | CCD | Continuity of Care Document ---
Author Organization Unknown Address Unknown Phone Unavailable Care Team Providers Care Choirmaster Name Role Phone Sincere Wyman MD AUTM [phone] Charlie Quinn AUTM [phone] Ramez Bautista M.D. AUTM [phone] Problems Active Problems Provider Date Essential hypertension [...] Indications Ordering Provide r Date Drisdol 1.25mg (46649 Ut) Capsules take 1 capsule by twice [...] CPT Code Status Date Vaccine Lot # [id number] Given 11/02/2020 Moderna Sars-(Co vid-19) vaccine, mRNA, LNP-S, PF, 100 mcg/ 0.5 mL 34692 Given 10/05/2020 Moderna Sars-(Co vid-19) vaccine, mRNA, LNP-S, PF, 100 mcg/ 0.5 mL 02229 Given 01/25/2016 Pneumococcal Vaccine [id number] 62671 Given 01/22/2015 Prevnar 13 [id number] 86275 Given 04/13/2003 Tetnus & Dipther ia Toxoids Seven Years Or Older, Im Or Jet Inj Vital Signs Date Vital Result Comment 03/11/2021 8:54am BP Systolic 154 mmHg Pt machine 15 / BP Diastolic 91 mmHg Pt machine 151/92 BP Systolic Recheck 155 mmHg BP Diastolic Recheck 89 mmHg Heart Rate 68 /min Body Temperature 96.8 F Respiratory Rate 17 /min Height 70 inches 5'10" Weight 220.38 lb O2 % BldC Oximetry 97 % Peak Expiratory Flow Rate 493 Estimated Peak Flow Rate [place] Body Weight 166 lb BMI (Body Mass [...] Flow Rate 493 Estimated Peak Flow Rate [place] Body Weight 166 lb BMI (Body Mass Index) 31.9 kg/m2 Results Test Acquired Date Facility Test Result H/L Range Note Laboratory test finding 03/09/2021 [place] [address] [phone] Erythrocyte Sedimentation Rate 2 mm/hr Normal 0 -20 Laboratory test finding 03/09/2021 [place] [address] [phone] Lupus Type Anticoagulant Scree 1.2 Normal 0 -1.2 1 Lupus Confirm Stago 1.20 Normal 0.00-1.20 2 Laboratory test finding 03/08/2021 [place] [address] [phone] C Reactive Protein Quantitativ 0.74 mg/dL High [...] IS PRESENT. SPECIMEN WILL BE SENT TO [facility], [address] [place] [address] [facility]ERE [facility] FOR CONFIRMATION. Procedures Date Code Description Status 03/11/2021 58112 Office/Outpatient Established Mo d MDM 30-39 Min Completed 01/14/2021 00120 Office/Outpatient Established Mo d MDM 30-39 Min [...] Svitlana Mishra M.D.* R73.01 Impaired fasting glucose* New Labs:* [...]
--- OUTSIDE RECORDS SUMMARY | 2021-03-30 11:06 | CCD | Continuity of Care Document ---
Author Author Kevin FALLON Organization Unknown Address [address] [address] Phone [phone] Care Team Providers Care Shirt Sewer Name Role Phone Ramez Bautista M.D. AUTM [phone] Svitlana Mishra M.D. AUTM [phone] Problems Active Problems Provider Date Excessive day [...] SIG Qnty Indications Ordering Provide r Date Chlorthalidone 25mg Tablets Ramón Mejia M.D. 04/20/2016 Immunizations Description No Information Available Vital Signs Date Vital Result Comment 04/20/2016 10:32am BP Systolic 140 mmHg BP Diastolic 85 mmHg Heart Rate 72 /min Height 70 inches 5'10" Weight 210.00 lb BMI (Body Mass Index) 30.1 kg/m2 [place] Body Weight 166 lb Results Test Acquired Date Facility Test Result H/L Range Note Laboratory test finding 03/09/2021 [facility] Erythrocyte Sedimentation Rate 2 mm/hr Normal 0-20 Laboratory test finding 03/09/2021 [facility] Lupus Type Anticoagulant Scree 1.2 Normal 0-1.2 1 Lupus Confirm Stago 1.20 Normal 0.00-1.20 2 1 RESULT IS 1.2 OR GREATER, FURTHER [...] IS PRESENT. SPECIMEN WILL BE SENT TO [facility], [address] [place], [place]. [address] [facility]. 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 at [facility] * 03/11/2021 1:45 pm - MRI at [facility] Functional Status Description No Information Available Mental Status Description No Information Available Referrals Description No Information Available
--- OUTSIDE RECORDS SUMMARY | 2021-03-30 11:06 | CCD | Continuity of Care Document ---
Author Organization Unknown Address Unknown Phone Unavailable Care Team Providers Care Drill Foreman Name Role Phone Sincere Wyman MD AUTM [phone] Charlie Quinn AUTM [phone] Ramez Bautista M.D. AUTM [phone] Problems Active Problems Provider Date Essential hypertension Svitlana Mishra M.D. Onset: 12/15 Vitamin D deficiency Watson Lora M.D. Onset: 07/10 Mixed hyperlipidemia Watson Lora M.D. Onset: 07/10 Adjustment disorder with anxious mood Watson Lora M.D. Onset: 12/20/2012 Chronic kidney disease stage 3 Watson Lora M.D. On set: 01/23/2018 Gout Watson Loar M.D. Onset: 2017 Social History Type Date [...] Indications Ordering Provide r Date Drisdol 1.25mg (01584 Ut) Capsules take 1 capsule by twice [...] CPT Code Status Date Vaccine Lot # [id number] Given 11/02/2020 Moderna Sars-(Co vid-19) vaccine, mRNA, LNP-S, PF, 100 mcg/ 0.5 mL [id number] Given 10/05/2020 Moderna Sars-(Co vid-19) vaccine, mRNA, LNP-S, PF, 100 mcg/ 0.5 mL [id number] Given 01/25/2016 Pneumococcal Vaccine [id number] Given 01/22/2015 Prevnar 13 [id number] Given 04/13/2003 Tetnus & Dipther ia Toxoids [...] Flow Rate 493 Estimated Peak Flow Rate [place] Body Weight 166 lb BMI (Body Mass [...] Flow Rate 493 Estimated Peak Flow Rate [place] Body Weight 166 lb BMI (Body Mass Index) 31.9 kg/m2 Results Test Acquired Date Facility Test Result H/L Range Note Hemoglobin A1c 03/11/2021 [facility] [address] [place] [address] [phone] Hemoglobin A1c 5.6 % 4.8-5.6 1, 2 CMP14 03/11/2021 [facility] [address] [place] [address] [phone] Sodium 138 mmol/L 134-144 Potassium 4.5 mmol/L [...] Laboratory test finding 03/09/2021 [place] [address] [phone] Erythrocyte Sedimentation Rate 2 mm/hr Normal 0 -20 Laboratory test finding 03/09/2021 [place] [address] [phone] Lupus Type Anticoagulant Scree 1.2 Normal 0 -1.2 4 Lupus Confirm Stago 1.20 Normal 0.00-1.20 5 Lupus Screen Confirmation 03/09/2021 [place] [address] [phone] Hexagonal Phase Phospholipid 0 sec Normal 0-1 1 Comment For Hexagonal Confirm1 (SEE NOTE) Normal . 6 Laboratory test finding 03/08/2021 [place] [address] [phone] C Reactive Protein Quantitativ 0.74 mg/dL High [...] IS PRESENT. SPECIMEN WILL BE SENT TO [facility], [address] [place]. [address] [facility] FOR CONFIRMATION. 6 . Results do not indicate the presence of a Lupus Anticoagulant: abnormal high screening results (PTT-LA, dRVVT, mixing studies), may be due to medication (heparin, warfarin, aspirin), Factor inhibitors, anticardiolipin antibodies, or poor specimen integrity. Performed at: [facility] [id number] Ultrasonic Welding Machine Operator: Demario Campoverde MD, Phone: [phone] Procedures Date Code Description Status 03/11/2021 53710 Office/Outpatient Established Mo d MDM 30-39 Min Completed 01/14/2021 25036 Office/Outpatient Established Mo d MDM 30-39 Min [...] M.D. at Main Office 03/11/2021 - Svitlana Msihra M.D.* R73.01 Impaired fasting glucose* Comments:* reviewed [...]
--- OUTSIDE RECORDS SUMMARY | 2021-03-30 11:06 | CCD ---
Continuity of Care Document (CCD) Created on: 03/12/2021 [facility] [place] External Reference #: [id number] : [id number] Sex: Male Author Organization Unknown Address Unknown Phone Unavailable Care Team Providers Care Team Guide Name Role Phone Watson Lora MD AUTM [phone] Charlie Quinn DPM AUTM [phone] Jasmeet Donato MD AUTM [phone] Svitlana Mishra MD AUTM [phone] Problems Active Problems Provider Date Essential hypertension [...] Ordering Provide r Date Vitamin D3 1.25mg (69105 Ut) Capsu les one tab twice a [...] H/L Range Note Laboratory test finding 03/09/2021 [facility] [phone] Erythrocyte Sedimentation Rate 2 mm/hr Normal 0 -20 Laboratory test finding 03/09/2021 [facility] [phone] Lupus Type Anticoagulant Scree 1.2 Normal 0 -1.2 1 Lupus Confirm Stago 1.20 Normal 0.00-1.20 2 Lupus Screen Confirmation 03/09/2021 [facility] [phone] Hexagonal Phase Phospholipid 0 sec Normal 0-1 1 Comment For Hexagonal Confirm1 (SEE NOTE) Normal . 3 Laboratory test finding 03/08/2021 [facility] - not [...] Magnesium Level 1.91 Uric Acid 6.6 1 RESULT IS 1.2 OR GREATER, FURTHER [...] IS PRESENT. SPECIMEN WILL BE SENT TO [facility], [address] [place]. [address] [facility]. 3 . Results do not indicate the presence of a Lupus Anticoagulant: abnormal high screening results (PTT-LA, dRVVT, mixing studies), may be due to medication (heparin, warfarin, aspirin), Factor inhibitors, anticardiolipin antibodies, or poor specimen integrity. Performed at: [facility] [id number] Snow Removal/Plowing: Demario Campoverde MD, Phone: [phone] Procedures Date Code Description Status 01/22/2021 78062 Chronic Care MGMT 20 Mins Clinical Staff Time Per Calendar Month Completed 12/21/2020 04676 Chronic Care MGMT 20 Mins Clinical Staff Time Per Calendar Month Completed 12/09/2020 47667 Office/Outpatient Established Mo d MDM 30-39 Min Completed 12/09/2020 13087 Arterial Pressure Wa veform Analysis For Assessment Of Central Art Completed 12/09/2020 03349 ECG 12-Lead Completed 09/22/2020 38306 Chronic Care MGMT 20 Mins Clinical Staff Time Per Calendar Month Completed Medical Devices Description No Information Available Encounters Type Date Location Provider Dx Diagnosis Office Visit 12/21/2020 10:32a Main Office Ramez Bautista MD I10 Essential (primary) hypertension I11.9 Hypertensive heart disease w [facility] heart failure Office Visit 12/09/2020 9:00a Main Office Ramez Bautista MD I10 Essential (primary) hypertension I11.9 Hypertensive heart disease w [facility] heart failure R60.0 Localized edema I44.0 Atrioventricular [...] MD 01/22/2021 I11.9 Hypertensive heart disease witho nv heart failure Ramez Bautista MD 12/21/2020 I10 Essential (primary) hypertension Ramez Bautista MD 12/21/2020 I11.9 Hypertensive heart disease witho ut heart failure Ramez Bautista MD 12/09/2020 I10 Essential (primary) hypertension Ramez Bautista MD 12/09/2020 I11.9 Hypertensive heart disease witho nv heart failure Ramez Bautista MD 12/09/2020 R60.0 [...] Bautista MD 09/22/2020 E78.1 Pure hyperglyceridemia Ramez aButista MD Plan of Treatment Future Appointment(s):* 03/18/2021 [...]
--- OUTSIDE RECORDS SUMMARY | 2021-03-30 11:06 | CCD | Continuity of Care Document ---
Author Author Kevin FERRARO M.D. Organization Unknown Address [address] [place] [address] Phone [phone] Care Team Providers Care Electronics Tester Name Role Phone Sincere Wyman MD AUTM [phone] Charlie Quinn AUT [phone] Ramez Bautista M.D. AUTM [phone] Problems Active Problems Provider Date Essential hypertension [...] Indications Ordering Provide r Date Drisdol 1.25mg (04276 Ut) Capsules take 1 capsule by twice [...] CPT Code Status Date Vaccine Lot # [id number] Given 11/02/2020 Moderna Sars-(Co vid-19) vaccine, mRNA, LNP-S, PF, 100 mcg/ 0.5 mL 11299 Given 10/05/2020 Moderna Sars-(Co vid-19) vaccine, mRNA, LNP-S, PF, 100 mcg/ 0.5 mL 98546 Given 01/25/2016 Pneumococcal Vaccine [id number] Given 01/22/2015 Prevnar 13 [id number] Given 04/13/2003 Tetnus & Dipther ia Toxoids [...] Flow Rate 493 Estimated Peak Flow Rate [place] Body Weight 166 lb BMI (Body Mass [...] Flow Rate 493 Estimated Peak Flow Rate [place] Body Weight 166 lb BMI (Body Mass Index) 31.9 kg/m2 Results Test Acquired Date Facility Test Result H/L Range Note Laboratory test finding 03/09/2021 [facility] [place] [address] [phone] Erythrocyte Sedimentation Rate 2 mm/hr Normal 0 -20 Laboratory test finding 03/09/2021 [facility] [place] [id number] [phone] Lupus Type Anticoagulant Scree 1.2 Normal 0 -1.2 1 Lupus Confirm Stago 1.20 Normal 0.00-1.20 2 Laboratory test finding 03/08/2021 [place] [address] [phone] C Reactive Protein Quantitativ 0.74 mg/dL High [...] IS PRESENT. SPECIMEN WILL BE SENT TO [facility], [address] [place] [address] [facility] Procedures Date Code Description Status 01/14/2021 49202 Office/Outpatient Established Mo d MDM 30-39 Min Completed Medical Devices Description No Information Available Encounters Type Date Location Provider Dx Diagnosis Office Visit 01/14/2021 8:15a Main Office Svitlana [...] A1c, Scheduled: 03/11/21 * CMP14, Scheduled: 03/11/21 Functional Status Functional Condition Comment Date Status Independent with all ADL's Activ e Trifocal glasses Active Independent with all IADL's Acti ve Mental Status Mental Condition Comment Date Status None Active Referrals Description No Information Available
--- OUTSIDE RECORDS SUMMARY | 2021-03-30 11:06 | CCD | Continuity of Care Document ---
Author Organization Unknown Address Unknown Phone Unavailable Care Team Providers Care Buttermaker Continuous Churn Name Role Phone Watson Lora MD AUTM [phone] Charlie Quinn DPM AUTM [phone] Jasmeet Donato MD AUTM [phone] Svitlana Mishra MD AUTM [phone] Problems Active Problems Provider Date Essential hypertension [...] Ordering Provide r Date Vitamin D3 1.25mg (98150 Ut) Capsu les one tab twice a [...] H/L Range Note Laboratory test finding 03/09/2021 [facility] [phone] Erythrocyte Sedimentation Rate 2 mm/hr Normal 0 -20 Laboratory test finding 03/09/2021 [facility] [phone] Lupus Type Anticoagulant Scree 1.2 Normal 0 -1.2 1 Lupus Confirm Stago 1.20 Normal 0.00-1.20 2 Lupus Screen Confirmation 03/09/2021 [facility] [phone] Hexagonal Phase Phospholipid 0 sec Normal 0-1 1 Comment For Hexagonal Confirm1 (SEE NOTE) Normal . 3 Serum Protein Electrophoresis 03/09/2021 [facility] [phone] Albumin % 53.7 % Low 55.8-66.1 Dkfzx-1-Ptjqrcte % 3.9 % Normal 2.9-4.9 Anocp-0-Widnuvbfs % 10.2 % Normal 7.1-11.8 Fajg-3-Vklugndiy % 6.4 % Normal 4.7-7.2 Qqnt-1-Oljgwmcmb % 7.8 % High 3.2-6.5 Gamma Globulin % 18.0 % Normal 11.1-18.8 Albumin 4.35 GM/DL Normal 3.29-5.55 Gmmgy-3-Woykitvod 0.32 GM/DL Normal 0.17-0.41 Fgrqs-5-Fovmryohq 0.83 GM/DL Normal 0.42-0.99 Gevp-7-Ttfvqetyw 0.52 GM/DL Normal 0.28-0.60 Bzgv-4-Zpbigsmzd 0.63 GM/DL High 0.19-0.55 Gamma Globulins 1.46 GM/DL Normal 0.65-1.58 Total Protein 8.1 GM/DL Normal 6.4-8.2 Spep Interpretation SEE COMMENT Normal 4 Spep Pathologist Review REV'D BY Kitty VINSON Normal Laboratory test finding 03/09/2021 [facility] [phone] Syphilis NONREACTIVE Normal Nonreactive Rheumatoid Factor Quant [...] IS PRESENT. SPECIMEN WILL BE SENT TO [facility] [place], [address] [place]. [address] [facility] FOR CONFIRMATION. 3 . Results do not indicate the presence of a Lupus Anticoagulant: abnormal high screening results (PTT-LA, dRVVT, mixing studies), may be due to medication (heparin, warfarin, aspirin), Factor inhibitors, anticardiolipin antibodies, or poor specimen integrity. Performed at: [facility] [id number] Catalyst Operator: Demario Campoverde MD, Phone: [phone] NO M-SPIKE(S)NOTED. Procedures Date Code Description Status 01/22/2021 43593 Chronic Care MGMT 20 Mins Clinical Staff Time Per Calendar Month Completed 12/21/2020 77216 Chronic Care MGMT 20 Mins Clinical Staff Time Per Calendar Month Completed 12/09/2020 67435 Office/Outpatient Established Mo d MDM 30-39 Min Completed 12/09/2020 49419 Arterial Pressure Wa veform Analysis For Assessment Of Central Art Completed 12/09/2020 87143 ECG 12-Lead Completed 09/22/2020 35209 Chronic Care MGMT 20 Mins Clinical Staff Time Per Calendar Month Completed Medical Devices Description No Information Available Encounters Type Date Location Provider Dx Diagnosis Office Visit 12/21/2020 10:32a Main Office Ramez Bautista MD I10 Essential (primary) hypertension I11.9 Hypertensive heart disease w [facility] heart failure Office Visit 12/09/2020 9:00a Main Office Ramez Bautista MD I10 Essential (primary) hypertension I11.9 Hypertensive heart disease w [facility] heart failure R60.0 Localized edema I44.0 [...] MD 01/22/2021 I11.9 Hypertensive heart disease witho [place] heart failure Ramez Bautisat MD 12/21/2020 I10 Essential (primary) hypertension Ramez Bautista MD 12/21/2020 I11.9 Hypertensive heart disease witho tx heart failure Ramez Bautista MD 12/09/2020 I10 [...]
--- OUTSIDE RECORDS SUMMARY | 2021-03-30 11:06 | CCD ---
Continuity of Care Document (CCD) Created on: 03/10/2021 [facility] [place] External Reference #: [id number] : [id number] Sex: Male Author Organization Unknown Address Unknown Phone Unavailable Care Team Providers Care Chief Substation Operator Name Role Phone Watson Lora MD AUTM [phone] Charlie Quinn DPM AUTM [phone] Jasmeet Donato MD AUTM [phone] Svitlana Mishra MD AUTM [phone] Problems Active Problems Provider Date Essential hypertension [...] Ordering Provide r Date Vitamin D3 1.25mg (81219 Ut) Capsu les one tab twice a [...] H/L Range Note Laboratory test finding 03/09/2021 [facility] [phone] Erythrocyte Sedimentation Rate 2 mm/hr Normal 0 -20 Laboratory test finding 03/09/2021 [facility] [phone] Lupus Type Anticoagulant Scree 1.2 Normal 0 -1.2 1 Lupus Confirm Stago 1.20 Normal 0.00-1.20 2 Laboratory test finding 03/08/2021 [facility] - not [...] IS PRESENT. SPECIMEN WILL BE SENT TO [facility], [address] [place]. [address] [facility] FOR CONFIRMATION. Procedures Date Code Description Status 01/22/2021 96262 Chronic Care MGMT 20 Mins Clinical Staff Time Per Calendar Month Completed 12/21/2020 53153 Chronic Care MGMT 20 Mins Clinical Staff Time Per Calendar Month Completed 12/09/2020 37558 Office/Outpatient Established Mo d MDM 30-39 Min Completed 12/09/2020 37126 Arterial Pressure Wa veform Analysis For Assessment Of Central Art Completed 12/09/2020 37720 ECG 12-Lead Completed 09/22/2020 76125 Chronic Care MGMT 20 Mins Clinical Staff Time Per Calendar Month Completed Medical Devices Description No Information Available Encounters Type Date Location Provider Dx Diagnosis Office Visit 12/21/2020 10:32a Main Office Ramez Bautista MD I10 Essential (primary) hypertension I11.9 Hypertensive heart disease w [facility] heart failure Office Visit 12/09/2020 9:00a Main Office Ramez Bautista MD I10 Essential (primary) hypertension I11.9 Hypertensive heart disease w [facility] heart failure R60.0 Localized edema [...] MD 01/22/2021 I11.9 Hypertensive heart disease witho [place] heart failure Ramez Bautista MD 12/21/2020 I10 Essential (primary) hypertension Ramez Bautista MD 12/21/2020 I11.9 Hypertensive heart disease witho [place] heart failure Ramez Bautista MD 12/09/2020 I10 [...]
--- OUTSIDE RECORDS SUMMARY | 2021-03-30 11:06 | CCD | Continuity of Care Document ---
Author Kevin Lockhart M.D. Organization Unknown Address [address] [place] [address] Phone [phone] Care Team Providers Care Sanitarian Inspector Name Role Phone Ramez Bautista M.D. AUTM [phone] Svitlana Mishra M.D. AUTM [phone] Problems Active Problems Provider Date Excessive day [...] lb BMI (Body Mass Index) 30.1 kg/m2 [place] Body Weight 166 lb Results Test Acquired Date Facility Test Result H/L Range Note Laboratory test finding 03/09/2021 [facility] Erythrocyte Sedimentation Rate 2 mm/hr Normal 0-20 Procedures Date Code Description Status 03/09/2021 20607 Office/Outpatient New Moderate M DM 45-59 Minutes Completed 03/09/2021 11627 MRI Brain W/O Contrast Completed Medical Devices Description No Information Available Encounters Type Date Location Provider Dx Diagnosis Office Visit 03/09/2021 11:30a [facility] Rigoberto Craig I65.1 Occlusion and stenosis of [...] 11:00 am - Ramón Mejia M.D. at [facility] * 03/11/2021 1:45 pm - MRI at [facility] Functional Status Description No Information Available Mental Status Description No Information Available Referrals Description No Information Available
--- OUTSIDE RECORDS SUMMARY | 2021-03-30 11:07 | CCD ---
Author Author [facility] Organization [facility] Address Unknown Phone Unavailable Care Team Providers Care Big Data Admin Name Role Phone Stacy CORONA DPM Unavailable Unavailable Stacy CORONA DPM Unavailable Unavailable Stacy CORONA DPM Unavailable Unavailable Stacy CORONA DPM Unavailable Unavailable Stacy CORONA DPM Unavailable Unavailable Stacy CORONA DPM Unavailable Unavailable Stacy CORONA DPM Unavailable Unavailable Stacy CORONA DPM Unavailable Unavailable Stacy CORONA DPM Unavailable Unavailable Stacy CORONA DPM Unavailable Unavailable Stacy CORONA DPM Unavailable Unavailable Stacy CORONA DPM Unavailable Unavailable Stacy CORONA DPM Unavailable Unavailable tSacy CORONA DPM Unavailable Unavailable Stacy CORONA DPM Unavailable Unavailable Stacy CORONA DPM Unavailable Unavailable Stacy CORONA DPM Unavailable Unavailable Stacy CORONA DPM Unavailable Unavailable Stacy CORONA DPM Unavailable Unavailable Stacy CORONA DPM Unavailable Unavailable Stacy CORONA DPM Unavailable Unavailable Stacy CORONA DPM Unavailable Unavailable Stacy CORONA DPM Unavailable Unavailable Stacy CORONA DPM Unavailable Unavailable Stacy CORONA DPM Unavailable Unavailable Stacy CORONA DPM Unavailable Unavailable Stacy CORONA DPM Unavailable Unavailable Stacy CORONA DPM Unavailable Unavailable MAJAK, R TADEO DPM Unavailable Unavailable MAJAK, R TADEO DPM Unavailable Unavailable Tad, Sergey Shane MD Unavailable Unavailable Tad, Sergey Shane MD Unavailable Unavailable Tad, Sergey Shane MD Unavailable Unavailable Tad, Sergey Shane MD Unavailable Unavailable Tad, Sergey Shane MD Unavailable Unavailable Tad, Sergye Shane MD Unavailable Unavailable Tad, Sergey Shane MD Unavailable Unavailable Tad, Sergey Shane MD Unavailable Unavailable Tad, Sergey Shane MD Unavailable Unavailable Tad, Sergey Shane MD Unavailable Unavailable Tad, Sergey Shane MD Unavailable Unavailable Tad, Sergey Shane MD Unavailable Unavailable Tad, Sergey Shane MD Unavailable Unavailable Tad, Sergey Shane MD Unavailable Unavailable Tad, Sergey Shane MD Unavailable Unavailable Tad, Sergey Shane MD Unavailable Unavailable Tad, Sergey Shane MD Unavailable Unavailable Tad, Sergey Shane MD Unavailable Unavailable Tad, Sergey Shane MD Unavailable Unavailable Tad, Sergey Shane MD Unavailable Unavailable Tad, Sergey Shane MD Unavailable Unavailable Tad, Sergey Shane MD Unavailable Unavailable Tad, Sergey Shane MD Unavailable Unavailable Tad, Sergey Shane MD Unavailable Unavailable Tad, Sergey Shane MD Unavailable Unavailable Tad, Sergey Shane MD Unavailable Unavailable Tad, Sergey Shane MD Unavailable Unavailable Tad, Sergey Shane MD Unavailable Unavailable Tad, Sergey Shane MD Unavailable Unavailable Tad, Sergey Shane MD Unavailable Unavailable Tad, Sergey Shane MD Unavailable Unavailable Tad, Sergey Shane MD Unavailable Unavailable Tad, Sergey Shane MD Unavailable Unavailable Tad, Sergey Shane MD Unavailable Unavailable Tad, Sergey Shane MD Unavailable Unavailable Tad, Sergey Shane MD Unavailable Unavailable Tad, Sergey Shane MD Unavailable Unavailable Tad, Sergey Shane MD Unavailable Unavailable Tad, Sergey Shane MD Unavailable Unavailable Tad, Sergey Shane MD Unavailable Unavailable Tad, Sergey Shane MD Unavailable Unavailable Tad, Sergey Shane MD Unavailable Unavailable Tad, Sergey Shane MD Unavailable Unavailable Tad, Sergey Shane MD Unavailable Unavailable Tad, Sergey Shane MD Unavailable Unavailable Tad, Sergey Shane MD Unavailable Unavailable Tad, Sergey Shane MD Unavailable Unavailable Tad, Sergey Shane MD Unavailable Unavailable Tad, Sergey Shane MD Unavailable Unavailable Tad, Sergey Shane MD Unavailable Unavailable Tad, Sergey Shane MD Unavailable Unavailable Tad, Sergey Shane MD Unavailable Unavailable Tad, Sergey Shane MD Unavailable Unavailable Tad, Sergey Shane MD Unavailable Unavailable Tad, Sergey Shane MD Unavailable Unavailable Tad, Sergey Shane MD Unavailable Unavailable Tad, Sergey Shane MD Unavailable Unavailable Tad, Sergey Shane MD Unavailable Unavailable Tad, Sergey Shane MD Unavailable Unavailable Tad, Sergey Shane MD Unavailable Unavailable Tad, Sergey Shane MD Unavailable Unavailable Tad, Sergey Shane MD Unavailable Unavailable Tad, Seregy Shane MD Unavailable Unavailable Tad, Sergey Shane MD Unavailable Unavailable Tad, Sergey Shane MD Unavailable Unavailable Tad, Sergey Shane MD Unavailable Unavailable Tad, Sergey Shane MD Unavailable Unavailable Tad, Sergey Shane MD Unavailable Unavailable Tad, Sergey Shane MD Unavailable Unavailable Tad, Sergey Shane MD Unavailable Unavailable Tad, Sergey Shane MD Unavailable Unavailable Tad, Sergey Shane MD Unavailable Unavailable Tad, Sergey Shane MD Unavailable Unavailable Tad, Sergey Shane MD Unavailable Unavailable Tad, Sergey Shane MD Unavailable Unavailable Tad, Sergey Shane MD Unavailable Unavailable Tad, Sergey Shane MD Unavailable Unavailable Tad, Sergey Shane MD Unavailable Unavailable Tad, Sergey Shane MD Unavailable Unavailable Tad, Sergey Shane MD Unavailable Unavailable Tad, Sergey Shane MD Unavailable Unavailable ANTECOL, Claudia PLUMMER MD Unavailable Unavailable ANTECOL, Claudia PLUMMER MD Unavailable Unavailable ANTECOL, Claudia PLUMMER MD Unavailable Unavailable ANTECOL, Claudia PLUMMER MD Unavailable Unavailable ANTECOL, Claudia PLUMMER MD Unavailable Unavailable ANTECOL, Claudia PLUMMER MD Unavailable Unavailable ANTECOL, Claudia PLUMMER MD Unavailable Unavailable ANTECOL, Claudia PLUMMER MD Unavailable Unavailable ANTECOL, Claudia PLUMMER MD Unavailable Unavailable ANTECOL, Claudia PLUMMER MD Unavailable Unavailable ANTECOL, Claudia PLUMMER MD Unavailable Unavailable ANTECOL, Claudia PLUMMER MD Unavailable Unavailable ANTECOL, Claudia PLUMMER MD Unavailable Unavailable ANTECOL, Claudia PLUMMER MD Unavailable Unavailable ANTECOL, Claudia PLUMMER MD Unavailable Unavailable ANTECOL, Claudia PLUMMER MD Unavailable Unavailable ANTECOL, Claudia PLUMMER MD Unavailable Unavailable ANTECOL, Claudia PLUMMER MD Unavailable Unavailable ANTECOL, Claudia PLUMMER MD Unavailable Unavailable ANTECOL, Claudia PLUMMER MD Unavailable Unavailable ANTECOL, Claudia PLUMMER MD Unavailable Unavailable ANTECOL, Claudia PLUMMER MD Unavailable Unavailable ANTECOL, Claudia PLUMMER MD Unavailable Unavailable ANTECOL, Claudia PLUMMER MD Unavailable Unavailable ANTECOL, Claudia PLUMMER MD Unavailable Unavailable ANTECOL, Claudia PLUMMER MD Unavailable Unavailable ANTECOL, Claudia PLUMMER MD Unavailable Unavailable ANTECOL, Claudia PLUMMER MD Unavailable Unavailable ANTECOL, Claudia PLUMMER MD Unavailable Unavailable ANTECOL, Claudia PLUMMER MD Unavailable Unavailable ANTECOL, Claudia PLUMMER MD Unavailable Unavailable ANTECOL, Claudia PLUMMER MD Unavailable Unavailable ANTECOL, Claudia PLUMMER MD Unavailable Unavailable ANTECOL, Claudia PLUMMER MD Unavailable Unavailable ANTECOL, Claudia PLUMMER MD Unavailable Unavailable ANTECOL, Claudia PLUMMER MD Unavailable Unavailable ANTECOL, Claudia PLUMMER MD Unavailable Unavailable ANTECOL, Claudia PLUMMER MD Unavailable Unavailable ANTECOL, Claudia PLUMMER MD Unavailable Unavailable ANTECOL, Claudia PLUMMER MD Unavailable Unavailable ANTECOL, Claudia PLUMMER MD Unavailable Unavailable ANTECOL, Claudia PLUMMER MD Unavailable Unavailable ANTECOL, Claudia PLUMMER MD Unavailable Unavailable ANTECOL, Claudia PLUMMER MD Unavailable Unavailable ANTECOL, Claudia PLUMMER MD Unavailable Unavailable ANTECOL, Claudia PLUMMER MD Unavailable Unavailable ANTECOL, Claudia PLUMMER MD Unavailable Unavailable ANTECOL, Claudia PLUMMER MD Unavailable Unavailable ANTECOL, Claudia PLUMMER MD Unavailable Unavailable ANTECOL, Claudia PLUMMER MD Unavailable Unavailable ANTECOL, Claudia PLUMMER MD Unavailable Unavailable ANTECOL, Claudia PLUMMER MD Unavailable Unavailable ANTECOL, Claudia PLUMMER MD Unavailable Unavailable ANTECOL, Claudia PLUMMER MD Unavailable Unavailable Jackie, Ramón MD Unavailable Unavailable Jackie, Ramón MD Unavailable Unavailable Jackie, Ramón MD Unavailable Unavailable Jackie, Ramón MD Unavailable Unavailable Jackie, Ramón MD Unavailable Unavailable Jackie, Ramón MD Unavailable Unavailable Jackie, Ramón MD Unavailable Unavailable Jackie, Ramón MD Unavailable Unavailable Jackie, Ramón MD Unavailable Unavailable Jackie, Ramón MD Unavailable Unavailable Jackie, Ramón MD Unavailable Unavailable Jackie, Ramón MD Unavailable Unavailable Jackie, Ramón MD Unavailable Unavailable Jackie, Ramón MD Unavailable Unavailable Jackie, Ramón MD Unavailable Unavailable Jackie, Ramón MD Unavailable Unavailable Jackie, Ramón MD Unavailable Unavailable Jackie, Ramón MD Unavailable Unavailable Jackie, Ramón MD Unavailable Unavailable Jackie, Ramón MD Unavailable Unavailable Jackie, Ramón MD Unavailable Unavailable Jackie, Ramón MD Unavailable Unavailable Jackie, Ramón MD Unavailable Unavailable Jackie, Ramón MD Unavailable Unavailable Jackie, Ramón MD Unavailable Unavailable Jackie, Ramón MD Unavailable Unavailable Jackie, Ramón MD Unavailable Unavailable Jackie, Ramón MD Unavailable Unavailable Jackie, Ramón MD Unavailable Unavailable Jackie, Ramón MD Unavailable Unavailable Jackie, Ramón MD Unavailable Unavailable Jackie, Ramón MD Unavailable Unavailable Jackie, Ramón MD Unavailable Unavailable Jackie, Ramón MD Unavailable Unavailable Jackie, Ramón MD Unavailable Unavailable Jackie, Ramón MD Unavailable Unavailable Jackie, Ramón MD Unavailable Unavailable Jackie, Ramón MD Unavailable Unavailable Jackie, Ramón MD Unavailable Unavailable Jackie, Ramón MD Unavailable Unavailable Jackie, Ramón MD Unavailable Unavailable Jackie, Ramón MD Unavailable Unavailable Jackie, Ramón MD Unavailable Unavailable Jackie, Ramón MD Unavailable Unavailable Jackie, Ramón MD Unavailable Unavailable Jackie, Ramón MD Unavailable Unavailable Jackie, Ramón MD Unavailable Unavailable Jackie, Ramón MD Unavailable Unavailable Jackie, Ramón MD Unavailable Unavailable Jackie, Ramón MD Unavailable Unavailable Jackie, Ramón MD Unavailable Unavailable Jackie, Ramón MD Unavailable Unavailable Jackie, Ramón MD Unavailable Unavailable Jackie, Ramón MD Unavailable Unavailable Jackie, Ramón MD Unavailable Unavailable Jackie, Ramón MD Unavailable Unavailable Jackie, Ramón MD Unavailable Unavailable Jackie, Ramón MD Unavailable Unavailable Jackie, Ramón MD Unavailable Unavailable Jackie, Ramón MD Unavailable Unavailable Jackie, Ramón MD Unavailable Unavailable Jackie, Ramón MD Unavailable Unavailable Jackie, Ramón MD Unavailable Unavailable Re-disclosure Warning The records that you are about to access may contain information from federally-assisted alcohol or drug abuse programs. If such information is present, then the following federally mandated warning applies: This information has been disclosed to you from records protected by federal confidentiality rules (42 CFR part 2). The federal rules prohibit you from making any further disclosure of this information unless further disclosure is expressly permitted by the written consent of the person to whom it pertains or as otherwise permitted by 42 CFR part 2. A general authorization for the release of medical or other information is NOT sufficient for this purpose. The Federal rules restrict any use of the information to criminally investigate or prosecute any alcohol or drug abuse patient.The records that you are about to access may contain highly sensitive health information, the redisclosure of which is protected by Article 27-F of the [facility] Public Health law. If you continue you may have access to information: Regarding HIV / AIDS; Provided by facilities licensed or operated by the [facility] Office of Mental Health; or Provided by the [facility] Office for People With Developmental Disabilities. If such information is present, then the following [facility] mandated warning applies: This information has been disclosed to you from confidential records which are protected by state law. State law prohibits you from making any further disclosure of this information without the specific written consent of the person to whom it pertains, or as otherwise permitted by law. Any unauthorized further disclosure in violation of state law may result in a fine or skilled nursing sentence or both. A general authorization for the release of medical or other information is NOT sufficient authorization for further disc losure. Family History Family Member Name Family Member Gender Family Member Status Date o f Status Description Data Source(s) Unknown Female Problem [facility] ([facility] Unknown Male Problem [facility] Unknown Male Problem [facility] Unknown Male Problem [facility] Unknown Female Problem [facility] ([facility] Encounters Encounter Providers Location Date Indications Data Source(s ) Outpatient Attender: Ramón Mejia MD Main office - [place] 03/23/2021 11:00:00 AM EDT [facility] ([facility], ) Outpatient Attender: KAVITHA SANCHEZ MD Main Office 03/18/2021 10:00:00 AM EDT [facility] ([facility]) Outpatient Attender: Svitlana Mishra MD Main Office 03/11/2021 09:00:0 0 AM EDT [facility] ([facility] Outpatient Attender: Ramón Mejia MD Main office - [place] 03/09/2021 11:30:00 AM EDT [facility] ([facility], ) Outpatient Attender: TADEO CORONA DPM [place] Office 02/05 08:15:00 AM EDT [facility] ([facility] Office Visit Attender: KAVITHA SANCHEZ MD Main Office 01/22/2021 02: 31:00 PM EDT [facility] ([facility]) Outpatient Attender: Svitlana Mishra MD Main Office 01/14/2021 08:15:0 0 AM EDT [facility] ([facility] Office Visit Attender: KAVITHA SANCHEZ MD Main Office 12/21/2020 10: 32:00 AM EDT [facility] ([facility]) Outpatient Attender: TADEO CORONA DPM [place] Office 12/05 08:15:00 AM EDT [facility] ([facility] Outpatient Attender: KAVITHA SANCHEZ MD Main Office 12/09/2020 09:00:00 AM EDT [facility] ([facility]) Outpatient Attender: TADEO CORONA DPM [place] Office 10/05 07:15:00 AM EST [facility] ([facility] Office Visit Attender: KAVITHA SANCHEZ MD Main Office 09/22/2020 06: 49:00 AM EST [facility] ([facility]) Office Visit Attender: KAVITHA SANCHEZ MD Main Office 08/19/2020 02: 18:00 PM EST [facility] ([facility]) Outpatient Attender: TADEO CORONA DPM [place] Office 03/2021 07:15:00 AM EST [facility] ([facility] Outpatient Attender: Svitlana Mishra MD Main Office 07/17/2020 08:30:0 0 AM EST [facility] ([facility] Office Visit Attender: KAVITHA SANCHEZ MD Main Office 07/14/2020 09: 43:00 AM EST [facility] ([facility]) Office Visit Attender: KAVITHA SANCHEZ MD Main Office 06/09/2020 11: 21:00 AM EST [facility] ([facility]) Outpatient Attender: TADEO CORONA [facility] Office 05/09 08:15:00 AM EDT [facility] ([facility] Outpatient Attender: KAVITHA SANCHEZ MD Main Office 05/27/2020 09:00:00 AM EDT [facility] ([facility]) Office Visit Attender: KAVITHA SANCHEZ MD Main Office 05/08/2020 12: 38:00 PM EDT [facility] ([facility]) Outpatient Attender: TADEO CORONA [facility] [place] Office 03/08 08:15:00 AM EDT [facility] ([facility] Immunizations Vaccine Date Status Description Data Source(s) Moderna Sars-(Covid-19) vaccine, mRNA, LNP-S, PF, 100 mcg/ 0.5 mL 11/02/2020 12:00:00 AM EDT completed [facility] ([facility] COVID-19 VACCINE Moderna 11/02/2020 12:00:00 AM EDT completed [facility] Vaccine Series Complete: YESThis Data wa s Submitted to [facility] Via [employer]. COVID-19 VACCINE Moderna 10/05/2020 12:00:00 AM EST completed [facility] Vaccine Series Complete: NOThis Data was Submitted to [facility] Via [employer]. Moderna Sars-(Covid-19) vaccine, mRNA, LNP-S, PF, 100 mcg/ 0.5 mL 10/04/2020 11:00:00 PM EST completed [facility] ([facility] Medications Medication Brand Name Start Date Product Form Dose Route Admi nistrative Instructions Pharmacy Instructions Status Indications Reaction Description Data Source(s) Aspirin 81 MG Delayed Release Oral Tablet Aspirin 03/17/2021 1 2:00:00 AM EDT ORAL active [facility] ([facility]) clopidogrel 75 MG Oral Tablet Clopidogrel Bisulfate 03/17/2021 1 2:00:00 AM EDT ORAL active [facility] ( [facility]) clopidogrel 75 MG Oral Tablet [Plavix] Plavix 03/15/2021 12:00:00 AM EDT ORAL active [facility] ([facility]) Ergocalciferol 36159 UNT Oral Capsule [Drisdol] Drisdol 01/14/2021 12:00:00 AM EDT active [facility] ([facility] Insurance Providers Payer name Policy type / Coverage type Policy ID Covered green party ID Covered green party's relationship to parekh Policy Parekh Plan Information Mar Lin Gummii [facility] Workers Compensation [id number] [id number] Self [id number] Mar Lin Gummii [facility] Workers Compensation [id number] [id number] Self [id number] Mar Lin [employer]ummii [facility] Workers Compensation [id number] 20.1.242012.3.227.99.2809.61689.0 Self [id number] Mar Lin Gummii [facility] Workers Compensation [id number] Self [id number] [employer] [facility] Workers Compensation [id number] 2.840.1.733410.3.227.99.2809.16507.0 Self [id number] [employer] [facility] Workers Compensation [id number] Self [id number] Mar Lin Workers [facility] Workers Compensation [id number] Self MEDICARE [id number] SP [id number] [employer] Medigap Part B [id number] Self [id number] [place] [id number] Self [id number] Medicare Dme Medigap Part B [id number] 2..1.420859.3.227.99 .936.13277.0 Self [id number] [employer] Insurance Medigap Part B [id number] 2..1.572881.3.227. 99.936.14372.0 Self [id number] Medicare Medicare Primary [id number] 2.0.1.853375.3.227. 99.936.96778.0 Self [id number] [employer] Options Medigap Part B [id number] ..1.549153.3.227.99.572.87766.0 Self [id number] Medicare (Part B) Medicare Primary [id number] 2.0.1.106431.3.227.99.572.83817.0 Self [id number] Medicare (Part B) Medicare Primary [id number] 2.0.1.621622.3.227.99.572.77605.0 Self 2 [id number] [employer] Options Medigap Part B [id number] 2.840.1.829166.3.227.99.572.35331.0 Self [id number] Medicare (Part B) Medicare Primary [id number] 2.840.1.686366.3.227.99.572.81253.0 Self [id number] Medicare (Part B) Medicare Primary [id number] 2.0.1.972782.3.227.99.572.04708.0 Self 2 [id number] Medicare Dme Medigap Part B [id number] 2.0.1.426693.3.227.99 .936.19239.0 Self [id number] [employer] Insurance Medigap Part B [id number] 2.0.1.914861.3.227. 99.936.18145.0 Self [id number] Medicare Medicare Primary [id number] 2.0.1.233905.3.227. 99.936.81880.0 Self [id number] Medicare Dme Medigap Part B [id number] 2.0.1.715280.3.227.99 .936.19695.0 Self [id number] [employer] Insurance Medigap Part B [id number] 2.0.1.521192.3.227. 99.936.13865.0 Self [id number] Medicare Medicare Primary [id number] 2.0.1.313204.3.227. 99.936.31683.0 Self [id number] [employer] Medigap Part B [id number] 2.0.1.084493.3.227.99.2809.72969.0 Self [id number] [employer] Medigap Part B [id number] 2.16.840.1.233053.3.227.99.2809.1 1795.0 Self [id number] [place] Primary [id number] 2.840.1.504443.3.227.99.2809.85844.0 Self [id number] Medicare Dme Medigap Part B [id number] 2.840.1.018377.3.227.99 .936.80650.0 Self [id number] [employer] Insurance Medigap Part B [id number] 2.0.1.174431.3.227. 99.936.71027.0 Self [id number] Medicare Medicare Primary [id number] 2.0.1.976929.3.227. 99.936.67623.0 Self [id number] Medicare Dme Medigap Part B [id number] 2.0.1.656333.3.227.99 .936.05539.0 Self [id number] [employer] Insurance Medigap Part B [id number] 2.0.1.305364.3.227. 99.936.21175.0 Self [id number] Medicare Medicare Primary [id number] 2.0.1.206583.3.227. 99.936.44036.0 Self [id number] Medicare Dme Medigap Part B [id number] 2.0.1.201484.3.227.99 .936.89678.0 Self [id number] [employer] Insurance Medigap Part B [id number] 2.0.1.374948.3.227. 99.936.65151.0 Self [id number] Medicare Medicare Primary [id number] 2.840.1.252352.3.227. 99.936.99716.0 Self [id number] [employer] Healthcare Options Medigap Part B [id number] 2.16.840.1.533355.3.227.99.572.96058.0 Self [id number] Medicare (Part B) Medicare Primary [id number] 2.16.840.1.287221.3.227.99.572.43229.0 Self 0 [id number] Medicare (Part B) Medicare Primary [id number] 2.16.840.1.144112.3.227.99.572.14235.0 Self 2 [id number] [employer] Healthcare Options Medigap Part B [id number] 2.16.840.1.144912.3.227.99.572.43870.0 Self [id number] Medicare (Part B) Medicare Primary [id number] 2.16840.1.703913.3.227.99.572.00008.0 Self [id number] Medicare (Part B) Medicare Primary [id number] 2.16840.1.544112.3.227.99.572.34630.0 Self 2 [id number] Medicare Dme Medigap Part B [id number] 2.840.1.910695.3.227.99 .936.48590.0 Self [id number] [employer] Insurance Medigap Part B [id number] 2.16840.1.279206.3.227. 99.936.29693.0 Self [id number] Medicare Medicare Primary [id number] 2.16840.1.981525.3.227. 99.936.38657.0 Self [id number] Medicare Dme Medigap Part B [id number] 2.16840.1.186366.3.227.99 .936.57886.0 Self [id number] [employer] Insurance Medigap Part B [id number] 2.16840.1.477092.3.227. 99.936.05995.0 Self [id number] Medicare Medicare Primary [id number] 2.16840.1.470247.3.227. 99.936.47033.0 Self [id number] [employer] Medigap Part B [id number] 2.840.1.926961.3.227.99.2809.35140.0 Self [id number] [employer] Medigap Part B [id number] 2.840.1.855732.3.227.99.2809.1 1795.0 Self [id number] Medicare [place] Primary [id number] 2.840.1.617654.3.227.99.2809.34138.0 Self [id number] MEDICARE [id number] SP [id number] [employer] Healthcare Options Medigap Part B [id number] 2.0.1.418885.3.227.99.572.38736.0 Self [id number] Medicare (Part B) Medicare Primary [id number] 2.0.1.654111.3.227.99.572.44194.0 Self 0 [id number] Medicare Dme Medigap Part B [id number] 2.0.1.672925.3.227.99 .936.60641.0 Self [id number] [employer] Insurance Medigap Part B [id number] 2.0.1.224403.3.227. 99.936.91455.0 Self [id number] Medicare Medicare Primary [id number] 2.840.1.441076.3.227. 99.936.55020.0 Self [id number] [employer] Options Medigap Part B [id number] 2.0.1.097913.3.227.99.572.46957.0 Self 3 [id number] Medicare (Part B) Medicare Primary [id number] 2.0.1.088323.3.227.99.572.56957.0 Self [id number] [employer] Options Medigap Part B [id number] 2.16.840.1.941203.3.227.99.572.20794.0 Self [id number] Medicare (Part B) Medicare Primary [id number] 2.16840.1.532898.3.227.99.572.93864.0 Self 0 [id number] [employer] Medigap Part B [id number] 2.840.1.237526.3.227.99.2809.51664.0 Self [id number] [employer] Medigap Part B [id number] 2.840.1.273997.3.227.99.2809.1 1795.0 Self [id number] [place] Primary [id number] 2.0.1.902836.3.227.99.2809.66803.0 Self [id number] [employer] Options Medigap Part B [id number] 2.0.1.068619.3.227.99.572.04604.0 Self [id number] Medicare (Part B) Medicare Primary [id number] 2.840.1.133961.3.227.99.572.95561.0 Self 0 [id number] Medicare Dme Medigap Part B [id number] Self [id number] [employer] Medigap Part B [id number] 2.840.1.176758.3.227. 99.936.55241.0 Self [id number] Medicare Medicare Primary [id number] 2.840.1.582067.3.227. 99.936.41590.0 Self [id number] Medicare Dme Medigap Part B [id number] .[id number] Self [id number] [employer] Medigap Part B [id number] 2.840.1.573151.3.227. 99.936.56580.0 Self [id number] Medicare Medicare Primary [id number]. 99.936.09053.0 Self [id number] [employer] Options Medigap Part B [id number].572.15602.0 Self [id number] Medicare (Part B) Medicare Primary [id number] 2.16840.1.756509.3.227.99.572.56931.0 Self [id number] [employer] Options Medigap Part B [id number] 2.840.1.540632.3.227.99.572.07770.0 Self [id number] Medicare (Part B) Medicare Primary [id number] 2.840.1.031516.3.227.99.572.58226.0 Self [id number] Medicare Medigap Part B [id number] 2.0.1.005131.3.227.99.936.2 5697.0 Self [id number] [employer] Medigap Part B [id number] 2.840.1.706513.3.227. 99.936.89928.0 Self [id number] Medicare Dme Medicare Primary [id number] 2.840.1.600836.3.227. 99.936.36424.0 Self [id number] [employer] Medigap Part B [id number] 2.840.1.664762.3.227.99.2809.14217.0 Self [id number] [employer] Medigap Part B [id number] 2.840.1.949931.3.227.99.2809.1 1795.0 Self [id number] [place] Primary [id number] 2.840.1.854104.3.227.99.2809.43742.0 Self [id number] Medicare Dme Medigap Part B [id number]9 .936.71245.0 Self [id number] [employer] Medigap Part B [id number] 2.16840.1.211096.3.227. 99.936.49836.0 Self [id number] Medicare Medicare Primary [id number] 2.16840.1.458704.3.227. 99.936.69375.0 Self [id number] [employer] Medigap Part B [id number] 2.840.1.521899.3.227.99.2809.87540.0 Self [id number] [employer] Medigap Part B [id number] 2.0.1.236550.3.227.99.2809.1 1795.0 Self [id number] [place] Primary [id number] 2.0.1.807257.3.227.99.2809.56253.0 Self [id number] Medicare Dme Medigap Part B [id number] 2.840.1.074007.3.227.99 .936.18637.0 Self [id number] [employer] Medigap Part B [id number] 2.840.1.475469.3.227. 99.936.37896.0 Self [id number] Medicare Medicare Primary [id number] 2.840.1.943743.3.227. 99.936.65818.0 Self [id number] [employer] Options Medigap Part B [id number] Self Medicare (Part B) Medicare Primary [id number] Self Medicare Dme Medigap Part B [id number] 5697.0 Self [employer] Medigap Part B [id number] .[id number] Self Medicare Medicare Primary [id number] 697.0 Self [employer] Medigap Part B [id number] Self Aarp Medigap Part B [id number] Self Medicare [facility] Medicare Primary [id number] Self AARP O [id number] S [id number] MEDICARE C [id number] S [id number] A BC/BS OF [place] P [id number] S [id number] [id number] BCBS [place] PPO 302/307 [id number] SP [id number] AARP HEALTH CARE OPTIONS [id number] SP [id number] MEDICARE [id number] SP [id number] SP [id number] Medicare Dme Medigap Part B [id number] Self [id number] Aarp Insurance [facility] Part B [id number] Self [id number] Medicare Medicare Primary [id number] Self [id number] [employer] [facility] Part B [id number] Self [id number] Problems, Conditions, and Diagnoses Code Display Name Description Problem Type Effective Dates Data Source(s) I63.9 Cerebral artery occlusion Cerebral artery occlusion Pr oblem 03/18/2021 12:00:00 AM EDT [facility] ([facility]) [id number] Peripheral visual field defect Peripheral visual field defect Problem 03/09/2021 12:00:00 AM EDT [facility] ([facility], ) [id number] Cerebrovascular accident Cerebrovascular accident Prob mark 03/09/2021 12:00:00 AM EDT [facility] ([facility], ) Pressure ulcer of other site, stage 1 Pressure u lcer of other site, stage 1 Problem 12/24/2019 12:00:00 AM EDT - 01/30/2020 12:00:00 AM ED T [facility] ([facility] Surgeries/Procedures Procedure Description Date Indications Data Source(s) OFFICE OUTPATIENT VISIT 25 MINUTES 03/23/2021 12:00:00 AM EDT [facility] ([facility], ) OFFICE OUTPATIENT VISIT 15 MINUTES 03/18/2021 12:00:00 AM EDT [facility] ([facility]) Magnetic Resonance Angiogtaphy Head W/O Contrast Material(S) 03/11/2021 12:00:00 AM EDT [facility] ([facility], ) Magnetic Resonance Angiogtaphy Head W/O Contrast Material(S) 03/11/2021 12:00:00 AM EDT [facility] ([facility], ) Magnetic Resonance Angiography Neck W/O Contrast Materials 03/11/2021 12:00:00 AM EDT [facility] ([facility], ) Magnetic Resonance Angiography Neck W/O Contrast Materials 03/11/2021 12:00:00 AM EDT [facility] ([facility], ) OFFICE OUTPATIENT VISIT 25 MINUTES 03/11/2021 12:00:00 AM EDT [facility] ([facility] MRI BRAIN BRAIN STEM W/O CONTRAST MATERIAL 03/09/2021 12:00:00 AM EDT [facility] BRAIN BRAIN STEM W/O CONTRAST MATERIAL 03/09/2021 12:00:00 AM EDT [facility] ([facility], ) OFFICE OUTPATIENT NEW 45 MINUTES 03/09/2021 12:00:00 A M EDT [facility] ([facility], ) OFFICE OUTPATIENT VISIT 10 MINUTES 02/24/2021 12:00:00 AM EDT [facility] PARING/CUTTING BENIGN HYPERKERATOTIC LESION 2-4 2020 12:00:00 AM EDT [facility] ([facility] Chronic Care MGMT 20 Mins Clinical Staff Time Per Calendar M [facility] 01/22/2021 12:00:00 AM EDT [facility] ([facility]) OFFICE OUTPATIENT VISIT 25 MINUTES 01/14/2021 12:00:00 AM EDT [facility] ([facility] OFFICE OUTPATIENT VISIT 10 MINUTES 12/21/2020 12:00:00 AM EDT [facility] ([facility] Chronic Care MGMT 20 Mins Clinical Staff Time Per Calendar M [facility] 12/21/2020 12:00:00 AM EDT [facility] ([facility]) ECG ROUTINE ECG W/LEAST 12 LDS W/I&R 12/09/2020 12:00: 00 AM EDT [facility] ([facility]) Arterial Pressure Waveform Analysis For Assessment Of Centra l Art 12/09/2020 12:00:00 AM EDT [facility] ([facility]) OFFICE OUTPATIENT VISIT 25 MINUTES 12/09/2020 12:00:00 AM EDT [facility] ([facility]) PARING/CUTTING BENIGN HYPERKERATOTIC LESION 2-4 2020 12:00:00 AM EDT [facility] OFFICE OUTPATIENT VISIT 10 MINUTES 10/16/2020 12:00:00 AM EST [facility] Chronic Care MGMT 20 Mins Clinical Staff Time Per Calendar M [facility] 09/22/2020 12:00:00 AM EST [facility] ([facility]) PARING/CUTTING BENIGN HYPERKERATOTIC LESION 2-4 2020 12:00:00 AM EST [facility] ([facility] Chronic Care MGMT 20 Mins Clinical Staff Time Per Calendar M [facility] 08/19/2020 12:00:00 AM EST [facility] ([facility]) PARING/CUTTING BENIGN HYPERKERATOTIC LESION 2-4 2019 12:00:00 AM EST [facility] ([facility] ECG ROUTINE ECG W/LEAST 12 LDS W/I&R 05/27/2020 12:00: 00 AM EDT [facility] ([facility]) Arterial Pressure Waveform Analysis For Assessment Of Centra l Art 05/27/2020 12:00:00 AM EDT [facility] ([facility]) PARING/CUTTING BENIGN HYPERKERATOTIC LESION 2-4 2019 12:00:00 AM EDT [facility] ([facility] PARING/CUTTING BENIGN HYPERKERATOTIC LESION 1 02/27/20 20 12:00:00 AM EDT [facility] ([facility] DEBRIDEMENT OPEN WOUND 20 SQ CM/< 02/27/2020 12:00:00 AM EDT [facility] ([facility] Results ID Date Data Source [id number] 03/25/2021 11:40:00 AM EDT [facility] Name Value Range Interpretation Code Description Data Alisha rce(s) Supporting Document(s) SARS-CoV-2 (COVID-19) RNA [Presence] in Respiratory specimen by CHRISTIANO with probe detection Not Detected [facility] This lab was ordered by [facility] and reported by Mir Vracha. ID Date Data Source [id number] 03/11/2021 10:10:00 AM EDT [facility] ([facility] Name Value Range Interpretation Code Description Data Alisha rce(s) Supporting Document(s) Sodium [Moles/volume] in Serum or Plasma 138 mmol/L 134-144 [facility] ([facility] A courtesy copy of this report has been sent to the patient, Potassium [Moles/volume] in Serum or Plasma 4.5 mmol/L 3.5-5.2 [facility] ([facility] A courtesy copy of this report has been sent to the patient, Chloride [Moles/volume] in Serum or Plasma 105 mmol/L 96-106 [facility] ([facility] A courtesy copy of this report has been sent to the patient, Glucose [Mass/volume] in Serum or Plasma 97 mg/dL 65-99 [facility] ([facility] A courtesy copy of this report has been sent to the patient, Creatinine [Mass/volume] in Serum or Plasma 1.41 mg/dL 0.76-1.27 [facility] ([facility] A courtesy copy of this report has been sent to the patient, Urea nitrogen [Mass/volume] in Serum or Plasma 23 mg/dL 8-27 [facility] ([facility] A courtesy copy of this report has been sent to the patient, eGFR If Africn Am 57 mL/min/1.73 [facility] ([facility] A courtesy copy of this report has been sent to the patient, eGFR If NonAfricn Am 49 mL/min/1.73 [facility] ([facility] A courtesy copy of this report has been sent to the patient, Carbon dioxide, total [Moles/volume] in Serum or Plasma 21 mmol/L 20 -29 [facility] ([facility] A courtesy copy of this report has been sent to the patient, Protein, Total 7.6 g/dL 6.0-8.5 [facility] ([facility] A courtesy copy of this report has been sent to the patient, Calcium [Mass/volume] in Serum or Plasma 9.2 mg/dL 8.6-10.2 [facility] ([facility] A courtesy copy of this report has been sent to the patient, Albumin/Globulin [Mass Ratio] in Serum or Plasma 1.4 1.2-2.2 [facility] ([facility] A courtesy copy of this report has been sent to the patient, Globulin [Mass/volume] in Serum by calculation 3.2 g/dL 1.5-4.5 [facility] ([facility] A courtesy copy of this report has been sent to the patient, Albumin [Mass/volume] in Serum or Plasma 4.4 g/dL 3.7-4.7 [facility] ([facility] A courtesy copy of this report has been sent to the patient, Bilirubin.total [Mass/volume] in Serum or Plasma 0.6 mg/dL 0.0-1.2 [facility] ([facility] A courtesy copy of this report has been sent to the patient, Alkaline phosphatase [Enzymatic activity/volume] in Serum or Plasma 71 IU/L 48-121 [facility] ([facility] A courtesy copy of this report has been sent to the patient, Aspartate aminotransferase [Enzymatic activity/volume] in Serum or Plasma 23 IU/L 0-40 [facility] A courtesy copy of this report has been sent to the patient, Alanine aminotransferase [Enzymatic activity/volume] in Seru m or Plasma 18 IU/L 0-44 [facility] ([facility] A courtesy copy of this report has been sent to the patient, ID Date Data Source [id number] 03/11/2021 10:10:00 AM EDT [facility] ([facility] Name Value Range Interpretation Code Description Data Alisha rce(s) Supporting Document(s) Hemoglobin A1c/Hemoglobin.total in Blood 5.6 % 4.8-5.6 [facility] ([facility] A courtesy copy of this report has been sent to the patient, ID Date Data Source [id number] 03/12/2021 05:05:00 AM EDT [facility] Name Value Range Interpretation Code Description Data Alisha rce(s) Supporting Document(s) Glucose 97 mg/dL 65-99 [facility] BUN 23 mg/dL 8-27 [facility] Creatinine 1.41 mg/dL 0.76-1.27 Above high normal [facility] eGFR If NonAfricn Am 49 mL/min/1.73 >59 Below low normal [facility] eGFR If Africn Am 57 mL/min/1.73 >59 Below low normal [facility] currently reports eGFR in comp liance with the current recommendations of the National Kidney Foundation. [facility] will update reporting as new guidelines are published from the NKF-ASN Task force. Sodium 138 mmol/L 134-144 [facility] Potassium 4.5 mmol/L 3.5-5.2 [facility] Chloride 105 mmol/L 96-106 [facility] Carbon Dioxide, Total 21 mmol/L 20-29 [facility] Calcium 9.2 mg/dL 8.6-10.2 [facility] Protein, Total 7.6 g/dL 6.0-8.5 [facility] Albumin 4.4 g/dL 3.7-4.7 [facility] Globulin, Total 3.2 g/dL 1.5-4.5 [facility] A/G Ratio 1.4 1.2-2.2 [facility] Bilirubin, Total 0.6 mg/dL 0.0-1.2 [facility] Alkaline Phosphatase 71 IU/L 48-121 [facility] AST (SGOT) 23 IU/L 0-40 [facility] ALT (SGPT) 18 IU/L 0-44 [facility] ID Date Data Source [id number] 03/12/2021 07:05:00 AM EDT [facility] Name Value Range Interpretation Code Description Data Alisha rce(s) Supporting Document(s) Hemoglobin A1c 5.6 % 4.8-5.6 [facility] Prediabetes: 5.7 - 6.4 Diabetes: >6.4 Glycemic control for adults with diabetes: <7.0 ID Date Data Source [id number] 03/09/2021 02:42:00 PM EDT [facility] ([facility]) Name Value Range Interpretation Code Description Data Alisha rce(s) Supporting Document(s) Cardiolipin Igg Antibody Laboratory test result 0-14 [facility] ([facility]) <content>Negative: <15</con tent>
<content>Indeterminate: 15 - 20</content>
<content>Low-Med Positive: >20 - 80</content>
<content>High Positive: >80</content>
<content></content> Cardiolipin Iga Antibody Laboratory test result 0-11 [facility] ([facility]) <content>Negative: <12</con tent>
<content>Indeterminate: 12 - 20</content>
<content>Low-Med Positive: >20 - 80</content>
<content>High Positive: >80</content>
<content></content> Cardiolipin Igm Antibody Laboratory test result 0-12 [facility] ([facility]) <content>Negative: <13</con tent>
<content>Indeterminate: 13 - 20</content>
<content>Low-Med Positive: >20 - 80</content>
<content>High Positive: >80</content>
<content></content> ID Date Data Source [id number] 03/09/2021 02:42:00 PM EDT [facility] ([facility]) Name Value Range Interpretation Code Description Data Alisha rce(s) Supporting Document(s) Factor V Leiden For [facility] Laboratory test result [facility] ([facility]) Result: Negative (no mutation found) . Factor V Leiden is a [...] the workup for venous thrombosis include the [id number] mutation in the factor II (prothrombin) gene, protein S and C deficiency, and antithrombin deficiencies. Anticardiolipin antibody and lupus anticoagulant analysis may be appropriate for certain patients, as well as homocysteine levels. . Contact your local [facility] for information on how to order additional testing if desired. . . Genetic counselors are available for health care providers to discuss results at [phone] ([phone] . Methodology: DNA analysis of the Factor [...] developed and its performance characteristics determined by [facility]. It has not been cleared or approved by the Food and Drug Administration. . References: Lois Erazo (1996). Clin Lab Med 16:169-186. . Vicki Springer, PhD, [facility] Marylou Nicholson, PhD, [facility] López Obrien, PhD, [facility] Heaven Fortune, PhD, [facility] Hue Muñoz, PhD, [facility] Pascual Ontiveros PhD, [facility] ID Date Data Source [id number] 03/09/2021 02:42:00 PM EDT [facility] ([facility], ) Name Value Range Interpretation Code Description Data Alisha rce(s) Supporting Document(s) Factor II Prothrombin Gene An Laboratory test result [facility] ([facility], ) NEGATIVE No mutation identified. . Comment: A point mutation ([id number]) in the factor II (prothrombin) gene is [...] mutations. This assay detects only the prothrombin C64903Y mutation and does not measure genetic abnormalities [...] health care providers to discuss results at [phone] ([phone][place] . Methodology: DNA analysis of the Factor [...] developed and its performance characteristics determined by [employer]. It has not been cleared or approved by the Food and Drug Administration. . Hildat SR, et al. Blood. 1996; 88:0674-1083. Erica EA. Circulation. 2004; 110:e15-e18. Hannah I, et al. Arterioscler Thromb Vasc Biol. 1999; 19:700-703. . Vicki Springer, PhD, [facility] Marylou Nicholson, PhD, [facility] López Obrien, PhD, FAC Heaven Fortune, PhD, FAC Hue Muñoz, PhD, [facility] Pascual Ontiveros, PhD, [facility] ID Date Data Source [id number] 03/09/2021 02:42:00 PM EDT [facility] Name Value Range Interpretation Code Description Data Alisha rce(s) Supporting Document(s) Antinuclear Antibodies Direct Laboratory test result [facility] ([facility], ) ID Date Data Source [id number] 03/09/2021 02:42:00 PM EDT [facility] ([facility], ) Name Value Range Interpretation Code Description Data Alisha rce(s) Supporting Document(s) Protein S Antigen Total 107 % 60-150 [facility] ([facility], ) This test was developed and its performa nce characteristics determined by [facility]. It has not been cleared or approved by the Food and Drug Administration. Protein S Antigen Free 108 % 57-157 [facility] ([facility], ) This test was developed and its performa nce characteristics determined by [facility]. It has not been cleared or approved by the Food and Drug Administration. Effective April 12, 2021, the reference interval for Protein S, Free will be changing to: 61 - 136% ID Date Data Source [id number] 03/09/2021 02:42:00 PM EDT [facility] ([facility], ) Name Value Range Interpretation Code Description Data Alisha rce(s) Supporting Document(s) Protein C Ag [Units/volume] in Platelet poor plasma by Immun ologic method 102 % 60-150 [facility] ([facility], ) Performed at: - [facility] [address] [id number] Manifold Operator: Tasha Huerta MD, Phone: [phone] Performed at: - [facility] [id number] Manifold Operator: Demario Campoverde MD, Phone: [phone] Performed at: - [facility] [address] [place], [place] [id number] 150 Manifold Operator: Espinoza Bundy [facility], Phone: [phone] ID Date Data Source [id number] 03/09/2021 02:42:00 PM EDT [facility] ([facility], ) Name Value Range Interpretation Code Description Data Alisha rce(s) Supporting Document(s) Anti Thrombin 3 Funct Activity 102 % 75-135 [facility] ([facility], ) Direct Xa inhibitor anticoagulants such as rivaroxaban, apixaban and edoxaban will lead to spuriously elevated antithrombin activity levels possibly masking a deficiency. Anti Thrombin 3 Antigen Immuno 101 % 72-124 [facility] ([facility], ) This test was developed and its performa nce characteristics determined by [facility]. It has not been cleared or approved by the Food and Drug Administration. ID Date Data Source [id number] 03/09/2021 02:42:00 PM EDT [facility] ([facility], ) Name Value Range Interpretation Code Description Data Alisha rce(s) Supporting Document(s) Erythrocyte sedimentation rate by 2H Westergren method 2 mm/hr 0-2 0 [facility] ([facility], ) ID Date Data Source [id number] 03/09/2021 02:42:00 PM EDT [facility] Name Value Range Interpretation Code Description Data Alisha rce(s) Supporting Document(s) Laboratory test finding (navigational concept) Laboratory test result 0-11 [facility] ([facility]) <content>Negative: <12</con tent>
<content>Indeterminate: 12 - 20</content>
<content>Low-Med Positive: >20 - 80</content>
<content>High Positive: >80</content>
<content></content> Laboratory test finding (navigational concept) Laboratory test result 0-14 [facility] ([facility]) <content>Negative: <15</con tent>
<content>Indeterminate: 15 - 20</content>
<content>Low-Med Positive: >20 - 80</content>
<content>High Positive: >80</content>
<content></content> Laboratory test finding (navigational concept) Laboratory test result 0-12 [facility] ([facility]) <content>Negative: <13</con tent>
<content>Indeterminate: 13 - 20</content>
<content>Low-Med Positive: >20 - 80</content>
<content>High Positive: >80</content>
<content></content> ID Date Data Source [id number] 03/09/2021 02:42:00 PM EDT [facility] ([facility]) Name Value Range Interpretation Code Description Data Alisha rce(s) Supporting Document(s) Factor V Leiden For [facility] Result: Negative (no mutation found) . Factor V Leiden is a [...] the workup for venous thrombosis include the [id number] mutation in the factor II (prothrombin) gene, protein S and C deficiency, and antithrombin deficiencies. Anticardiolipin antibody and lupus anticoagulant analysis may be appropriate for certain patients, as well as homocysteine levels. . Contact your local [facility] for information on how to order additional testing if desired. . . Genetic counselors are available for health care providers to discuss results at [phone] ([phone]). . Methodology: DNA analysis of the Factor [...] Lab Med 16:169-186. . Vicki Springer, PhD, [facility] Marylou Nicholson, PhD, [facility] López Obrien, PhD, FAC Heaven Fortune, PhD, FAC Hue Muñoz, PhD, [facility] Pascual Ontiveros PhD, [facility] ID Date Data Source [id number] 03/09/2021 02:42:00 PM EDT [facility] [place] [place] Name Value Range Interpretation Code Description Data Alisha rce(s) Supporting Document(s) Factor II Prothrombin Gene An Laboratory test result [facility] ([facility]) NEGATIVE No mutation identified. . Comment: A point mutation ([id number]) in the factor II (prothrombin) gene is [...] mutations. This assay detects only the prothrombin C79406W mutation and does not measure genetic abnormalities [...] health care providers to discuss results at [phone] ([phone]). . Methodology: DNA analysis of the Factor [...] developed and its performance characteristics determined by [facility]. It has not been cleared or approved by the Food and Drug Administration. . Poort SR, et al. Blood. 1996; 88:7865-2886. Erica DAVALOS. Circulation. 2004; 110:e15-e18. Hannah I, et al. Arterioscler Thromb Vasc Biol. 1999; 19:700-703. . Vicki Springer, PhD, [facility] Marylou Nicholson, PhD, FAC López Obrien, PhD, [facility] Heaven Fortune, PhD, [facility] Hue Muñoz, PhD, [facility] Pascual Ontiveros, PhD, [facility] ID Date Data Source [id number] 03/09/2021 02:42:00 PM EDT [facility] ([facility] [place] [place]) Name Value Range Interpretation Code Description Data Alisha rce(s) Supporting Document(s) Antinuclear Antibodies Direct Laboratory test result [facility] ([facility] ID Date Data Source [id number] 03/09/2021 02:42:00 PM EDT [facility] ([facility] [place] [place]) Name Value Range Interpretation Code Description Data Alisha rce(s) Supporting Document(s) Protein S Antigen Total 107 % 60-150 [facility] ([facility] [place] This test was developed and its performa nce characteristics determined by [facility]. It has not been cleared or approved by the Food and Drug Administration. Protein S Antigen Free 108 % 57-157 [facility] ([facility] [place] This test was developed and its performa nce characteristics determined by [facility]. It has not been cleared or approved by the Food and Drug Administration. Effective April 12, 2021, the reference interval for Protein S, Free will be changing to: 61 - 136% ID Date Data Source [id number] 03/09/2021 02:42:00 PM EDT [facility] ([facility] [place] [place]) Name Value Range Interpretation Code Description Data Alisha rce(s) Supporting Document(s) Protein C Ag [Units/volume] in Platelet poor plasma by Immun ologic method 102 % 60-150 [facility] ([facility] [place]) Performed at: RN - [facility] [address] [id number] Manifold Operator: Tasha Huerta MD, Phone: [phone] Performed at: - [facility] [address] [id number] Manifold Operator: Demario Campoverde MD, Phone: [phone] Performed at: - [facility] [address] [place], [place] [address] 150 Manifold Operator: Espinoza Bundy [facility], Phone: [phone] ID Date Data Source [id number] 03/09/2021 02:42:00 PM EDT [facility] ([facility] [place] [place]) Name Value Range Interpretation Code Description Data Alisha rce(s) Supporting Document(s) Anti Thrombin 3 Funct Activity 102 % 75-135 [facility] ([facility] [place]) Direct Xa inhibitor anticoagulants such as rivaroxaban, apixaban and edoxaban will lead to spuriously elevated antithrombin activity levels possibly masking a deficiency. Anti Thrombin 3 Antigen Immuno 101 % 72-124 [facility] ([facility] [place]) This test was developed and its performa nce characteristics determined by [facility]. It has not been cleared or approved by the Food and Drug Administration. ID Date Data Source [id number] 03/09/2021 02:42:00 PM EDT [facility] ([facility] [place] [place]) Name Value Range Interpretation Code Description Data Alisha rce(s) Supporting Document(s) Erythrocyte sedimentation rate by Westergren method 2 mm/hr 0-20 [facility] ([facility] [place]) ID Date Data Source [id number] 03/09/2021 02:42:00 PM EDT [facility] ([facility] Name Value Range Interpretation Code Description Data Alisha rce(s) Supporting Document(s) Cardiolipin Iga Antibody Laboratory test result 0-11 [facility] ([facility] <content>Negative: <12</con tent>
<content>Indeterminate: 12 - 20</content>
<content>Low-Med Positive: >20 - 80</content>
<content>High Positive: >80</content>
<content></content> Cardiolipin Igg Antibody Laboratory test result 0-14 [facility] ([facility] <content>Negative: <15</con tent>
<content>Indeterminate: 15 - 20</content>
<content>Low-Med Positive: >20 - 80</content>
<content>High Positive: >80</content>
<content></content> Cardiolipin Igm Antibody Laboratory test result 0-12 [facility] ([facility] <content>Negative: <13</con tent>
<content>Indeterminate: 13 - 20</content>
<content>Low-Med Positive: >20 - 80</content>
<content>High Positive: >80</content>
<content></content> ID Date Data Source [id number] 03/09/2021 02:42:00 PM EDT [facility] ([facility] Name Value Range Interpretation Code Description Data Alisha rce(s) Supporting Document(s) Factor V Leiden For [facility] Laboratory test result [facility] ([facility] Result: Negative (no mutation found) . Factor V Leiden is a [...] the workup for venous thrombosis include the [id number] mutation in the factor II (prothrombin) gene, protein S and C deficiency, and antithrombin deficiencies. Anticardiolipin antibody and lupus anticoagulant analysis may be appropriate for certain patients, as well as homocysteine levels. . Contact your local [facility] for information on how to order additional testing if desired. . . Genetic counselors are available for health care providers to discuss results at [phone]). . Methodology: DNA analysis of the Factor [...] developed and its performance characteristics determined by [facility]. It has not been cleared or approved by the Food and Drug Administration. . References: Lois Erazo (1996). Clin Lab Med 16:169-186. . Vicki Springer, PhD, [facility] Marylou Nicholson, PhD, [facility] López Obrien, PhD, FAC Heaven Fortune, PhD, FAC Hue Muñoz, PhD, [facility] Pascual Ontiveros PhD, [facility] ID Date Data Source [id number] 03/09/2021 02:42:00 PM EDT [facility] ([facility] Name Value Range Interpretation Code Description Data Alisha rce(s) Supporting Document(s) Factor II Prothrombin Gene An Laboratory test result [facility] ([facility] NEGATIVE No mutation identified. . Comment: A point mutation ([id number]) in the factor II (prothrombin) gene is [...] mutations. This assay detects only the prothrombin [id number] mutation and does not measure genetic abnormalities [...] health care providers to discuss results at [phone] . Methodology: DNA analysis of the Factor [...] developed and its performance characteristics [facility]. It has not been cleared or approved by the Food and Drug Administration. . Poort SR, et al. Blood. 1996; 88:4152-1708. Erica DAVALOS. Circulation. 2004; 110:e15-e18. Hannah I, et al. Arterioscler Thromb Vasc Biol. 1999; 19:700-703. . Vicki Springer, PhD, [facility] Marylou Nicholson, PhD, [facility] López Obrien, PhD, [facility] Heaven Fortune, PhD, [facility] Hue Muñoz, PhD, [facility] Pascual Ontiveros, PhD, [facility] ID Date Data Source [id number] 03/09/2021 02:42:00 PM EDT [facility] ([facility] Name Value Range Interpretation Code Description Data Alisha rce(s) Supporting Document(s) Antinuclear Antibodies Direct Laboratory test result [facility] ([facility] ID Date Data Source [id number] 03/09/2021 02:42:00 PM EDT [facility] ([facility] Name Value Range Interpretation Code Description Data Alisha rce(s) Supporting Document(s) Protein S Antigen Total 107 % 60-150 [facility] ([facility] This test was developed and its performa nce characteristics determined by [facility]. It has not been cleared or approved by the Food and Drug Administration. Protein S Antigen Free 108 % 57-157 [facility] ([facility] This test was developed and its performa nce characteristics determined by [facility]. It has not been cleared or approved by the Food and Drug Administration. Effective April 12, 2021, the reference interval for Protein S, Free will be changing to: 61 - 136% ID Date Data Source [id number] 03/09/2021 02:42:00 PM EDT [facility] ([facility] Name Value Range Interpretation Code Description Data Alisha rce(s) Supporting Document(s) Protein C Ag [Units/volume] in Platelet poor plasma by Immun ologic method 102 % 60-150 [facility] ([facility] Performed at: - [address] [id number] Manifold Operator: Tasha Huerta MD, Phone: [phone] Performed at: [facility] [address] [id number] Manifold Operator: Demario Campoverde MD, Phone: [phone] Performed at: [facility] [address] [place], [place] [address] 150 Manifold Operator: Espinoza Bundy [facility], Phone: [phone] ID Date Data Source [id number] 03/09/2021 02:42:00 PM EDT [facility] ([facility] Name Value Range Interpretation Code Description Data Alisha rce(s) Supporting Document(s) Anti Thrombin 3 Funct Activity 102 % 75-135 [facility] ([facility] Direct Xa inhibitor anticoagulants such as rivaroxaban, apixaban and edoxaban will lead to spuriously elevated antithrombin activity levels possibly masking a deficiency. Anti Thrombin 3 Antigen Immuno 101 % 72-124 [facility] ([facility] This test was developed and its performa nce characteristics determined by [facility]. It has not been cleared or approved by the Food and Drug Administration. ID Date Data Source [id number] 03/09/2021 02:42:00 PM EDT [facility] ([facility] Name Value Range Interpretation Code Description Data Alisha rce(s) Supporting Document(s) Erythrocyte sedimentation rate by 2H Westergren method 2 mm/hr 0-2 0 [facility] ([facility] ID Date Data Source [id number] 03/09/2021 02:41:00 PM EDT [facility] ([facility]) Name Value Range Interpretation Code Description Data Alisha rce(s) Supporting Document(s) Rheumatoid factor [Units/volume] in Serum or Plasma Laboratory test result [facility] ([facility]) Reagin Ab [Presence] in Serum by RPR Laboratory test result [facility] ([facility]) ID Date Data Source [id number] 03/09/2021 02:41:00 PM EDT [facility] ([facility]) Name Value Range Interpretation Code Description Data Alisha rce(s) Supporting Document(s) Albumin % 53.7 % 55.8-66.1 [facility] ([facility]) Itpdn-6-Nlnzldel % 3.9 % 2.9-4.9 [facility] ([facility]) Uewfd-7-Ltstuxtqd % 10.2 % 7.1-11.8 [facility] ([facility]) Mmbp-0-Grtmxnrdb % 6.4 % 4.7-7.2 [facility] ([facility]) Gamma Globulin % 18.0 % 11.1-18.8 [facility] ([facility]) Ynhs-9-Jatcwwjat % 7.8 % 3.2-6.5 [facility] ([facility]) Albumin 4.35 GM/DL 3.29-5.55 [facility] ([facility]) Lhlze-7-Jegkaxrlv 0.32 GM/DL 0.17-0.41 [facility] ([facility]) Fsitz-6-Evmifwaen 0.83 GM/DL 0.42-0.99 [facility] ([facility]) Nxdz-9-Slarqdwpa 0.52 GM/DL 0.28-0.60 [facility] ([facility]) Njpr-6-Vhxfionlt 0.63 GM/DL 0.19-0.55 [facility] ([facility]) Gamma Globulins 1.46 GM/DL 0.65-1.58 [facility] ([facility]) Spep Interpretation Laboratory test result [facility] ([facility]) NO M-SPIKE(S)NOTED. Total Protein 8.1 GM/DL 6.4-8.2 [facility] ([facility], ) Laboratory test finding (navigational concept) [facility] ID Date Data Source [id number] 03/09/2021 02:41:00 PM EDT [facility] ([facility]) Name Value Range Interpretation Code Description Data Alisha rce(s) Supporting Document(s) Comment For Hexagonal Confirm1 Laboratory [facility] . Results do not indicate the presence of a Lupus Anticoagulant: abnormal high screening results (PTT-LA, dRVVT, mixing studies), may be due to medication (heparin, warfarin, aspirin), Factor inhibitors, anticardiolipin antibodies, or poor specimen integrity. Performed at: [address] [id number] Manifold Operator: Demario Campoverde MD, Phone: [phone] Hexagonal Phase Phospholipid 0 sec 0-11 [facility] ([facility], ) ID Date Data Source [id number] 03/09/2021 02:41:00 PM EDT [facility] ([facility]) Name Value Range Interpretation Code Description Data Alisha rce(s) Supporting Document(s) Lupus anticoagulant [Interpretation] in Platelet poor plasma 1.2 0-1.2 [facility] ([facility]) RESULT IS 1.2 OR GREATER, FURTHER TESTING [...] coagulation factor deficiency or a specific inhibitor. Lupus Confirm Stago 1.20 0.00-1.20 [facility] ([facility]) NORMALIZED RATIO IS EQUAL TO OR GREATER THAN 1.20 LA IS PRESENT. SPECIMEN WILL BE SENT TO [facility], [address] Lizzie [place]ook [address] REFERE [facility] FOR CONFIRMATION. ID Date Data Source [id number] 03/09/2021 02:41:00 PM EDT [facility] ([facility]) Name Value Range Interpretation Code Description Data Alisha rce(s) Supporting Document(s) Reagin Ab [Presence] in Serum by RPR Laboratory test result [facility] ([facility]) Rheumatoid factor [Units/volume] in Serum or Plasma Laboratory test result [facility] ([facility]) ID Date Data Source [id number] 03/09/2021 02:41:00 PM EDT [facility] Name Value Range Interpretation Code Description Data Alisha rce(s) Supporting Document(s) Albumin % 53.7 % 55.8-66.1 [facility] Vclyw-7-Rxslavut % 3.9 % 2.9-4.9 [facility] ([facility]) Khkrx-1-Jlnejwlam % 10.2 % 7.1-11.8 [facility] ([facility]) Dkrs-8-Yiukuahwm % 6.4 % 4.7-7.2 [facility] ([facility]) Duox-7-Dresrugir % 7.8 % 3.2-6.5 [facility] ([facility]) Gamma Globulin % 18.0 % 11.1-18.8 [facility] ([facility]) Albumin 4.35 GM/DL 3.29-5.55 [facility] ([facility]) Klrmi-8-Euzcnwiqa 0.83 GM/DL 0.42-0.99 [facility] ([facility]) Yrbkn-3-Pnlvcnvdt 0.32 GM/DL 0.17-0.41 [facility] ([facility]) Oymk-5-Snkeumbrx 0.52 GM/DL 0.28-0.60 [facility] ([facility]) Sczt-7-Ortamfonm 0.63 GM/DL 0.19-0.55 [facility] ([facility]) Gamma Globulins 1.46 GM/DL 0.65-1.58 [facility] ([facility] [place] [place]) Total Protein 8.1 GM/DL 6.4-8.2 [facility] ([facility]) Spep Interpretation Laboratory test result [facility] ([facility]) NO M-SPIKE(S)NOTED. Laboratory test finding (navigational concept) Laboratory test result [facility] ([facility] [place]) ID Date Data Source [id number] 03/09/2021 02:41:00 PM EDT [facility] [place] [place] Name Value Range Interpretation Code Description Data Alisha rce(s) Supporting Document(s) Laboratory test finding (navigational concept) Laboratory test result [facility] ([facility] [place]) . Results do not indicate the presence of a Lupus Anticoagulant: abnormal high screening results (PTT-LA, dRVVT, mixing studies), may be due to medication (heparin, warfarin, aspirin), Factor inhibitors, anticardiolipin antibodies, or poor specimen integrity. Performed at: [address] [id number] Manifold Operator: Demario Campoverde MD, Phone: [phone] Laboratory test finding (navigational concept) 0 sec 0-11 [facility] ID Date Data Source [id number] 03/09/2021 02:41:00 PM EDT [facility] ([facility] [place] [place]) Name Value Range Interpretation Code Description Data Alisha rce(s) Supporting Document(s) Lupus anticoagulant [Interpretation] in Platelet poor plasma 1.2 0-1.2 [facility] ([facility]) RESULT IS 1.2 OR GREATER, FURTHER TESTING [...] coagulation factor deficiency or a specific inhibitor. Laboratory test finding (navigational concept) 1.20 0.00-1.20 [facility] ([facility]) NORMALIZED RATIO IS EQUAL TO OR GREATER THAN 1.20 LA IS PRESENT. SPECIMEN WILL BE SENT TO [facility], [address] [place], [place]. [address] RE[facility]ERE [facility] FOR CONFIRMATION. ID Date Data Source [id number] 03/09/2021 02:41:00 PM EDT [facility] ([facility] Name Value Range Interpretation Code Description Data Alisha rce(s) Supporting Document(s) Rheumatoid factor [Units/volume] in Serum or Plasma Laboratory test result [facility] ([facility] Reagin Ab [Presence] in Serum by RPR Laboratory test result [facility] ([facility] ID Date Data Source [id number] 03/09/2021 02:41:00 PM EDT [facility] ([facility] Name Value Range Interpretation Code Description Data Alisha rce(s) Supporting Document(s) Rzocn-7-Bahsetkw % 3.9 % 2.9-4.9 [facility] ([facility] Albumin % 53.7 % 55.8-66.1 [facility] ([facility] Byhmq-6-Sawbdsnri % 10.2 % 7.1-11.8 [facility] ([facility] Mlqe-8-Yhwnvoyux % 6.4 % 4.7-7.2 [facility] ([facility] Albumin 4.35 GM/DL 3.29-5.55 [facility] ([facility] Ydko-8-Jcdismamv % 7.8 % 3.2-6.5 [facility] ([facility] Gamma Globulin % 18.0 % 11.1-18.8 [facility] ([facility] Yuigf-8-Sdqbnmlnx 0.83 GM/DL 0.42-0.99 [facility] ([facility] Hnnlr-9-Oyclaovib 0.32 GM/DL 0.17-0.41 [facility] ([facility] Ywlj-9-Rzzicddeu 0.63 GM/DL 0.19-0.55 [facility] ( [facility] Ukhd-7-Szdypynky 0.52 GM/DL 0.28-0.60 [facility] ( [facility] Total Protein 8.1 GM/DL 6.4-8.2 [facility] ([facility] Gamma Globulins 1.46 GM/DL 0.65-1.58 [facility] ([facility] Spep Interpretation Laboratory test result [facility] ([facility] NO M-SPIKE(S)NOTED. Laboratory test finding (navigational concept) Laboratory test result [facility] ([facility] ID Date Data Source [id number] 03/09/2021 02:41:00 PM EDT [facility] ([facility] Name Value Range Interpretation Code Description Data [facility]) Supporting Document(s) Hexagonal Phase Phospholipid 0 sec 0-11 [facility] ([facility] Comment For Hexagonal Confirm1 Laboratory test result [facility] ([facility] . Results do not indicate the presence of a Lupus Anticoagulant: abnormal high screening results (PTT-LA, dRVVT, mixing studies), may be due to medication (heparin, warfarin, aspirin), Factor inhibitors, anticardiolipin antibodies, or poor specimen integrity. Performed at: [address] [id number] Manifold Operator: Demario Campoverde MD, Phone: [phone] ID Date Data Source [id number] 03/09/2021 02:41:00 PM EDT [facility] ([facility] Name Value Range Interpretation Code Description Data [facility](s) Supporting Document(s) Lupus anticoagulant [Interpretation] in Platelet poor plasma 1.2 0-1.2 [facility] ([facility] RESULT IS 1.2 OR GREATER, FURTHER TESTING [...] coagulation factor deficiency or a specific inhibitor. Lupus Confirm Stago 1.20 0.00-1.20 [facility] ([facility] NORMALIZED RATIO IS EQUAL TO OR GREATER THAN 1.20 LA IS PRESENT. SPECIMEN WILL BE SENT TO [facility], [address] [place], [place]. [address] REFERE [facility] FOR CONFIRMATION. ID Date Data Source [id number] 03/08/2021 04:11:00 PM EDT [facility] ([facility] Name Value Range Interpretation Code Description Data Alisha rce(s) Supporting Document(s) C reactive protein [Mass/volume] in Serum or Plasma by High sensitivity method 0.74 mg/dL 0.00-0.30 [facility] ([facility] Erythrocyte sedimentation rate by 2H Westergren method 1 mm/hr 0-2 0 [facility] ([facility] ID Date Data Source [id number] 03/08/2021 10:41:00 AM EDT [facility] ([facility] Name Value Range Interpretation Code Description Data Alisha rce(s) Supporting Document(s) C reactive protein [Mass/volume] in Serum or Plasma 0.74 0.00-0 .30 [facility] ([facility]) Erythrocyte sedimentation rate by Westergren method 1 0-20 [facility] ([facility]) ID Date Data Source [id number] 10/19/2020 02:53:00 PM EDT [facility] ([facility]) Name Value Range Interpretation Code Description Data Alisha rce(s) Supporting Document(s) Magnesium Level 1.91 [facility] ([facility]) Uric Acid 6.6 [facility] ([facility]) ID Date Data Source [id number] 10/19/2020 02:53:00 PM EDT [facility] ([facility] [place] [place]) Name Value Range Interpretation Code Description Data Alisha rce(s) Supporting Document(s) Red Blood Count 5.73 [facility] ([facility] White Blood Count 9.3 [facility] Hemoglobin 17.9 [facility] ([facility]) Platelets 185 [facility] Hematocrit 53.9 [facility] ([facility]) ID Date Data Source [id number] 10/19/2020 02:53:00 PM EDT [facility] ([facility]) Name Value Range Interpretation Code Description Data Alisha rce(s) Supporting Document(s) Blood Urea Nitrogen 28.1 [facility] ([facility] Glucose 100 [facility] Creatinine 1.5 [facility] ([facility]) Glomerular filtration rate/1.73 sq M.pre dicted [Volume Rate/Area] in Serum or Plasma by Creatinine-based formula (MDRD) 46 [facility] ([facility]) Chloride 108.7 [facility] Potassium 4.6 [facility] Sodium 137.6 [facility] Calcium 8.8 [facility] Carbon Dioxide 26.3 [facility] ([facility]) Phosphorus 2.8 [facility] ([facility]) Albumin 4.1 [facility] ID Date Data Source [id number] 07/14/2020 09:33:00 AM EST [facility] ([facility] Name Value Range Interpretation Code Description Data Alisha rce(s) Supporting Document(s) Lyme IgG/IgM Ab Laboratory test result 0.00-0.90 [facility] ([facility] <content>Negative <0.91</content >
<content>Equivocal 0.91 - 1.09</content>
<content>Positive >1.09</content>
<content></content> Borrelia burgdorferi IgM Ab [Units/volume] in Serum Laborato ry test result 0.00-0.79 [facility] ([facility] <content>Negative <0.80</content >
<content>Equivocal 0.80 - 1.19</content>
<content>Positive >1.19</content>
<content>IgM levels may peak at 3-6 weeks post infection, then</content>
<content>gradually decline.</content>
<content></content> ID Date Data Source [id number] 07/14/2020 09:33:00 AM EST [facility] ([facility] Name Value Range Interpretation Code Description Data Alisha rce(s) Supporting Document(s) Urea nitrogen [Mass/volume] in Serum or Plasma 27 mg/dL 8-27 [facility] ([facility] Creatinine [Mass/volume] in Serum or Plasma 1.50 mg/dL 0.76-1.27 [facility] ([facility] Glucose [Mass/volume] in Serum or Plasma 102 mg/dL 65-99 [facility] ([facility] eGFR If Africn Am 53 mL/min/1.73 [facility] ([facility] eGFR If NonAfricn Am 46 mL/min/1.73 [facility] ([facility] Urea nitrogen/Creatinine [Mass Ratio] in Serum or Plasma 18 1 0-24 [facility] ([facility] Sodium [Moles/volume] in Serum or Plasma 142 mmol/L 134-144 [facility] ([facility] Chloride [Moles/volume] in Serum or Plasma 108 mmol/L 96-106 [facility] ([facility] Potassium [Moles/volume] in Serum or Plasma 4.5 mmol/L 3.5-5.2 [facility] ([facility] Protein, Total 7.2 g/dL 6.0-8.5 [facility] ([facility] Carbon dioxide, total [Moles/volume] in Serum or Plasma 20 mmol/L 20 -29 [facility] ([facility] Calcium [Mass/volume] in Serum or Plasma 9.5 mg/dL 8.6-10.2 [facility] ([facility] Albumin [Mass/volume] in Serum or Plasma 4.4 g/dL 3.7-4.7 [facility] ([facility] Globulin [Mass/volume] in Serum by calculation 2.8 g/dL 1.5-4.5 [facility] ([facility] Albumin/Globulin [Mass Ratio] in Serum or Plasma 1.6 1.2-2.2 [facility] ([facility] Alkaline phosphatase [Enzymatic activity/volume] in Serum or Plasma 71 IU/L 39-117 [facility] ([facility] Bilirubin.total [Mass/volume] in Serum or Plasma 0.6 mg/dL 0.0-1.2 [facility] ([facility] Aspartate aminotransferase [Enzymatic activity/volume] in Serum or Plasma 19 IU/L 0-40 [facility] ([facility] Alanine aminotransferase [Enzymatic activity/volume] in Seru m or Plasma 14 IU/L 0-44 [facility] ([facility] ID Date Data Source [id number] 07/14/2020 09:33:00 AM EST [facility] ([facility] Name Value Range Interpretation Code Description Data Alisha rce(s) Supporting Document(s) Leukocytes [#/volume] in Blood by Automated count 7.4 x10E3/uL 3.4-10 .8 [facility] ([facility] Erythrocytes [#/volume] in Blood by Automated count 5.62 x10E6/uL 4.1 4-5.80 [facility] ([facility] Hemoglobin [Mass/volume] in Blood 18.1 g/dL 13.0-17.7 [facility] ([facility] Hematocrit [Volume Fraction] of Blood by Automated count 50.9 % 3 7.5-51.0 [facility] ([facility] Erythrocyte mean corpuscular volume [Entitic volume] by Auto mated count 91 fL 79-97 [facility] ([facility] Erythrocyte mean corpuscular hemoglobin [Entitic mass] by Automated count 32.2 pg 26.6-33.0 [facility] ([facility] Erythrocyte mean corpuscular hemoglobin concentration [Mass/volume] by Automated count 35.6 g/dL 31.5-35.7 [facility] ([facility] Platelets [#/volume] in Blood by Automated count 198 x10E3/uL 150-450 [facility] ([facility] Erythrocyte distribution width [Ratio] by Automated count 12.2 % 11.6-15.4 [facility] ([facility] Neutrophils 70 % [facility] ([facility] Lymphocytes/100 leukocytes in Blood by Automated count 17 % [facility] Monocytes/100 leukocytes in Blood by Automated count 9 % [facility] Basophils/100 leukocytes in Blood by Automated count 1 % [facility] Eosinophils/100 leukocytes in Blood by Automated count 3 % [facility] Immature cells [#/volume] in Blood Laboratory test result [facility] ([facility] Eosinophils [#/volume] in Blood by Automated count 0.2 x10E3/uL 0.0-0 .4 [facility] ([facility] Lymphocytes [#/volume] in Blood 1.3 x10E3/uL 0.7-3.1 [facility] ([facility] Monocytes [#/volume] in Blood 0.7 x10E3/uL 0.1-0.9 [facility] ([facility] Neutrophils [#/volume] in Blood by Automated count 5.2 x10E3/uL 1.4-7 .0 [facility] ([facility] Basophils [#/volume] in Blood by Automated count 0.1 x10E3/uL 0.0-0.2 [facility] ([facility] Immature granulocytes/100 leukocytes in Blood by Automated count 0 % [facility] Immature granulocytes [#/volume] in Blood by Automated count 0.0 x10E3/uL 0.0-0.1 [facility] ([facility] Nucleated erythrocytes/100 leukocytes [Ratio] in Blood by Automated count Laboratory test result [facility] ([facility] Morphology [Interpretation] in Blood Narrative Laboratory test result [facility] ([facility] ID Date Data Source [id number] 07/14/2020 09:33:00 AM EST [facility] ([facility] Name Value Range Interpretation Code Description Data Alisha rce(s) Supporting Document(s) Urate [Mass/volume] in Serum or Plasma 7.5 mg/dL 3.8-8.4 [facility] ([facility] <content>Therapeutic target for gout pat ients: <6.0</content>
<content>Please note reference interval change</content>
<content></content> Calcidiol [Mass/volume] in Serum or Plasma 28.3 ng/mL 30.0-100.0 [facility] ([facility] Vitamin D deficiency has been defined by the [place] [employer] and an Endocrine Society practice guideline as a level of serum 25-OH vitamin D less than 20 ng/mL (1,2). The Endocrine Society went on to further define vitamin D insufficiency as a level between 21 and 29 ng/mL (2). 1. IOM ([place] [employer]). 2010. Di etary reference intakes for calcium and D. [place]: The National Academies Press. 2. Scott CRAWFORD, [place] CALLOWAY, Luciana juarez JUAREZ, et al. Evaluation, treatment, and prevention of vitamin D deficiency: an Endocrine Society clinical practice guideline. JCEM. 2010; 96(7):1911-30. ID Date Data Source [id number] 07/15/2020 04:05:00 AM EST [facility] Name Value Range Interpretation Code Description Data Alisha rce(s) Supporting Document(s) WBC 7.4 x10E3/uL 3.4-10.8 [facility] RBC 5.62 x10E6/uL 4.14-5.80 [facility] Hemoglobin 18.1 g/dL 13.0-17.7 Above high normal [facility] Hematocrit 50.9 % 37.5-51.0 [facility] MCV 91 fL 79-97 [facility] MCH 32.2 pg 26.6-33.0 [facility] MCHC 35.6 g/dL 31.5-35.7 [facility] RDW 12.2 % 11.6-15.4 [facility] Platelets 198 x10E3/uL 150-450 [facility] Neutrophils 70 % Not Estab. [facility] Lymphs 17 % Not Estab. [facility] Monocytes 9 % Not Estab. [facility] Eos 3 % Not Estab. [facility] Basos 1 % Not Estab. [facility] Neutrophils (Absolute) 5.2 x10E3/uL 1.4-7.0 [facility] Lymphs (Absolute) 1.3 x10E3/uL 0.7-3.1 [facility] Monocytes(Absolute) 0.7 x10E3/uL 0.1-0.9 [facility] Eos (Absolute) 0.2 x10E3/uL 0.0-0.4 [facility] Baso (Absolute) 0.1 x10E3/uL 0.0-0.2 [facility] Immature Granulocytes 0 % Not Estab. [facility] Immature Grans (Abs) 0.0 x10E3/uL 0.0-0.1 [facility] ID Date Data Source [id number] 07/15/2020 05:05:00 AM EST [facility] Name Value Range Interpretation Code Description Data Alisha rce(s) Supporting Document(s) Glucose 102 mg/dL 65-99 Above high normal [facility] BUN 27 mg/dL 8-27 [facility] Creatinine 1.50 mg/dL 0.76-1.27 Above high normal [facility] eGFR If NonAfricn Am 46 mL/min/1.73 >59 Below low normal [facility] eGFR If Africn Am 53 mL/min/1.73 >59 Below low normal [facility] BUN/Creatinine Ratio 18 10-24 [facility] Sodium 142 mmol/L 134-144 [facility] Potassium 4.5 mmol/L 3.5-5.2 [facility] Chloride 108 mmol/L 96-106 Above high normal [facility] Carbon Dioxide, Total 20 mmol/L 20-29 [facility] Calcium 9.5 mg/dL 8.6-10.2 [facility] Protein, Total 7.2 g/dL 6.0-8.5 [facility] Albumin 4.4 g/dL 3.7-4.7 [facility] Globulin, Total 2.8 g/dL 1.5-4.5 [facility] A/G Ratio 1.6 1.2-2.2 [facility] Bilirubin, Total 0.6 mg/dL 0.0-1.2 [facility] Alkaline Phosphatase 71 IU/L 39-117 [facility] AST (SGOT) 19 IU/L 0-40 [facility] ALT (SGPT) 14 IU/L 0-44 [facility] ID Date Data Source [id number] 07/15/2020 06:06:00 AM EST [facility] Name Value Range Interpretation Code Description Data Alisha rce(s) Supporting Document(s) Vitamin D, 25-Hydroxy 28.3 ng/mL 30.0-100.0 Below low normal [facility] Vitamin D deficiency has been defined by the [place] [employer] and an Endocrine Society practice guideline as alevel of serum 25-OH vitamin D less than 20 ng/mL (1,2).The Endocrine Society went on to further define vitamin Dinsufficiency as a level between 21 and 29 ng/mL (2).1. IOM ([place]). 2010. Dietary reference intakes for calcium and D. [place]: The National Academies Press.2. Scott MF, [place] CALLOWAY, Katy JUAREZ, et al. Evaluation, treatment, and prevention of vitamin D deficiency: an Endocrine Society clinical practice guideline. JCEM. 2010; 96(7):1911-30. ID Date Data Source [id number] 07/15/2020 08:08:00 AM EST [facility] Name Value Range Interpretation Code Description Data Alisha rce(s) Supporting Document(s) Uric Acid 7.5 mg/dL 3.8-8.4 [facility] Therapeutic ta rget for gout patients: <6.0 Please note reference interval change ID Date Data Source [id number] 07/15/2020 07:05:00 PM EST [facility] Name Value Range Interpretation Code Description Data Alisha rce(s) Supporting Document(s) Lyme IgG/IgM Ab 0.00-0.90 [facility] Negative <0.91 Equ[facility] 0.91 - 1.09 Positive >1.09 Lyme Disease Ab, Quant, IgM 0.00-0.79 [facility] Negative <0.80 Equivocal 0.80 - 1.19 Positive >1.19 IgM levels may peak at 3-6 weeks post infection, then gradually decline. ID Date Data Source [id number] 04/27/2020 09:05:00 AM EDT [facility] ([facility] Name Value Range Interpretation Code Description Data Alisha rce(s) Supporting Document(s) Magnesium Level 1.84 [facility] ([facility]) Uric Acid 5.7 [facility] ID Date Data Source [id number] 04/27/2020 09:05:00 AM EDT [facility] ([facility] Name Value Range Interpretation Code Description Data Alisha rce(s) Supporting Document(s) Platelets 303 [facility] [place] White Blood Count 8.3 [facility] ([facility]) Red Blood Count 5.30 [facility] ([facility]) Hemoglobin 17.3 [facility] ([facility] [place]) Hematocrit 49.4 [facility] ([facility] [place]) ID Date Data Source [id number] 04/27/2020 09:05:00 AM EDT [facility] ([facility] Name Value Range Interpretation Code Description Data Alisha rce(s) Supporting Document(s) Glucose 136 [facility]) Creatinine 1.6 [facility] ([facility]) Blood Urea Nitrogen 25.7 [facility] ([facility]) Glomerular filtration rate/1.73 sq M.pre dicted [Volume Rate/Area] in Serum or Plasma by Creatinine-based formula (MDRD) 43 [facility] ([facility]) Chloride 105.9 [facility] [place] Potassium 3.53 [facility] [place] Sodium 142.8 [facility] [place] Calcium 9.5 [facility] [place] Carbon Dioxide 26.0 [facility] ([facility]) Albumin 3.8 [facility] [place] Phosphorus 2.3 [facility] ([facility] [place]) Procedure Social History Code Duration Value Status Description Data Source(s ) Smoking 03/18/2021 12:00:00 AM EDT Patient is a former smoker completed Patient is a former smoker [facility] ([facility]) Smoking 03/11/2021 12:00:00 AM EDT Patient is a former smoker completed Patient is a former smoker [facility] Vital Signs ID Date Data Source UNK Name Value Range Interpretation Code Description Data Source(s) Heart rate 69 /min 69 /min [facility] [place] Systolic blood pressure--sitting 148 mm[Hg] 148 mm[Hg] [facility] ([facility]) CBP, large cuff/Ra Diastolic blood pressure--sitting 95 mm[Hg] 95 mm[Hg] [facility] ([facility]) CBP, large cuff/Ra Body height 71 [in_i] 71 [in_i] [facility]) 5'11" Body mass index (BMI) [Ratio] 30.5 kg/m2 30.5 k g/m2 [facility] ([facility]) Body weight 219.00 [lb_av] 219.00 [lb_av] [facility] T ([facility]) Systolic blood pressure 154 mm[Hg] 154 mm[Hg] M [facility] Pt machine 151/92 Diastolic blood pressure 91 mm[Hg] 91 mm[Hg] [facility] Pt machine 151/92 Systolic blood pressure 155 mm[Hg] 155 mm[Hg] [facility] Diastolic blood pressure 89 mm[Hg] 89 mm[Hg] [facility] Heart rate 68 /min 68 /min [facility] Body temperature 96.8 [degF] 96.8 [degF] [facility] Respiratory rate 17 /min 17 /min [facility] Body height 70 [in_i] 70 [in_i] [facility] 5'10" Body weight 220.38 [lb_av] 220.38 [lb_av] [facility] T ([facility] Oxygen saturation in Arterial blood by Pulse oximetry 97 % 97 % [facility] [place] body weight 166 [lb_av] 166 [lb_av] [facility] T ([facility] Body mass index (BMI) [Ratio] 31.6 kg/m2 31.6 k g/m2 [facility] Body height 70 [in_i] 70 [in_i] [facility] 5'10" Body weight 222.25 [lb_av] 222.25 [lb_av] [facility] T ([facility] [place] body weight 166 [lb_av] 166 [lb_av] [facility] T ([facility] Systolic blood pressure 166 mm[Hg] 166 mm[Hg] M [facility] 138/86 @ home other day Diastolic blood pressure 97 mm[Hg] 97 mm[Hg] [facility] 138/86 @ home other day Systolic blood pressure 161 mm[Hg] 161 mm[Hg] [facility] recheck Diastolic blood pressure 89 mm[Hg] 89 mm[Hg] [facility] recheck Heart rate 76 /min 76 /min [facility] Body temperature 97.1 [degF] 97.1 [degF] [facility] Respiratory rate 18 /min 18 /min [facility] Oxygen saturation in Arterial blood by Pulse oximetry 96 % 96 % [facility] Body mass index (BMI) [Ratio] 31.9 kg/m2 31.9 k g/m2 [facility] Body weight 220.00 [lb_av] 220.00 [lb_av] [facility] T ([facility]) Body mass index (BMI) [Ratio] 30.7 kg/m2 30.7 k g/m2 [facility] ([facility]) Body height 71 [in_i] 71 [in_i] [facility]) 5'11" Heart rate 79 /min 79 /min [facility] ([facility]) Systolic blood pressure--sitting 144 mm[Hg] 144 mm[Hg] [facility] ([facility]) CBP large cuff, Ra Diastolic blood pressure--sitting 97 mm[Hg] 97 mm[Hg] [facility] ([facility]) CBP large cuff, Ra Diastolic blood pressure 92 mm[Hg] 92 mm[Hg] [facility] Body height 70 [in_i] 70 [in_i] [facility] 5'10" [place] body weight 166 [lb_av] 166 [lb_av] [facility] T ([facility] Systolic blood pressure 164 mm[Hg] 164 mm[Hg] M [facility] Body weight 216.25 [lb_av] 216.25 [lb_av] [facility] T ([facility] Oxygen saturation in Arterial blood by Pulse oximetry 96 % 96 % [facility] Respiratory rate 18 /min 18 /min [facility] ( [facility] Body mass index (BMI) [Ratio] 31.0 kg/m2 31.0 k g/m2 [facility] Systolic blood pressure 138 mm[Hg] 138 mm[Hg] M [facility] recheck Diastolic blood pressure 80 mm[Hg] 80 mm[Hg] [facility] recheck Heart rate 79 /min 79 /min [facility] Body temperature 93.8 [degF] 93.8 [degF] [facility] Heart rate 70 /min 70 /min [facility] ([facility]) Body weight 213.00 [lb_av] 213.00 [lb_av] NATALY T ([facility]) Body mass index (BMI) [Ratio] 29.7 kg/m2 29.7 k g/m2 [facility] ([facility]) Body height 71 [in_i] 71 [in_i] [facility]) 5'11" Systolic blood pressure--sitting 142 mm[Hg] 142 mm[Hg] [facility] ([facility]) CBP, large cuff/Ra Diastolic blood pressure--sitting 91 mm[Hg] 91 mm[Hg] [facility] ([facility]) CBP, large cuff/Ra
[2021-03-30] MEDS ORDERED: fentaNYL 100 MCG/2 ML INJECTION (J3010) As Ordered ONE (11:34)
[2021-03-30] MEDS ORDERED: LIDOCAINE 1% MDV 20ML VIAL As Ordered ONE (12:21)
[2021-03-30] MEDS ORDERED: propofoL 200 MG/20 ML VIAL As Ordered ONE (12:55)
--- NOTE | 2021-03-30 13:32 | RO ---
OPERATIVE NOTE DATE OF OPERATION: 03/30/2021 PREPROCEDURE DIAGNOSIS: Unexplained stroke. POSTOPERATIVE DIAGNOSIS: Unexplained stroke. FINDINGS: Unexplained stroke. PROCEDURE PERFORMED: Implantation of a Medtronic subcutaneous cardiac rhythm monitor. SURGEON: Ramez Bautista MD. DUCT MAKER: None. ANESTHESIA: Lidocaine 1% local/monitored anesthetic care. SPECIMENS: No specimens. ESTIMATED BLOOD LOSS: Less than 1 mL. No blood products replaced. DRAINS: No drains. COMPLICATIONS: No complications. PROCEDURE DESCRIPTION: Patient was prepped and draped over the sternum and left anterior chest. Lidocaine 1% was used for local anesthetic. An incision approximately 1 cm in length was made with a #15 blade at the left third interspace 1 inch lateral to the left parasternal border. The guide on the insertion tool was placed into the incision and advanced in the subcutaneous tissue parallel to the anterior chest wall in a caudal direction. Insertion tool was rotated 180 degrees and then the punch was placed in the insertion tool and used to push the cardiac rhythm monitor into the subcutaneous tissue. The punch was removed and then the insertion tool was removed leaving the cardiac rhythm monitor in situ. The initial R wave amplitude measured 0.17 millivolts. The skin was then approximated temporarily using a 4-0 Biosyn suture placed subcuticular with the free ends of the suture protruding through the skin 1 cm on both sides at the end of the incision. Through there Dermabond was applied. The Biosyn suture was then pulled through the incision line and removed entirely. Patient tolerated the procedure well without any immediate complications. The subcutaneous cardiac rhythm monitor implanted was a Medtronic LINQ II with model number LNQ22 with serial number [id number].
[2021-03-30 14:00] VITALS: BP 155/83
== END 2021-03-30 14:13 | disposition home or self-care (01) ==
LOC: M SDC 11:00
PROVIDERS: ATTEND Internal Medicine Cardiovascular Disease
DX: I69.998 Other sequelae following unspecified cerebrovascular disease (principal); I44.0 Atrioventricular block, first degree; I12.9 Hypertensive chronic kidney disease with stage 1 through stage 4 chronic kidney disease, or unspecified chronic kidney disease; E78.00 Pure hypercholesterolemia, unspecified; M10.9 Gout, unspecified; K21.9 Gastro-esophageal reflux disease without esophagitis; M54.9 Dorsalgia, unspecified; N18.30 Chronic kidney disease, stage 3 unspecified; R06.83 Snoring; Z88.8 Allergy status to other drugs, medicaments and biological substances; Z79.899 Other long term (current) drug therapy; Z79.82 Long term (current) use of aspirin; Z79.02 Long term (current) use of antithrombotics/antiplatelets
CPT/HCPCS: 33285; C1764; J0690; J3010

== ENCOUNTER → 2021-04-02 | Outpatient (CLI) | payer MEDICARE ==
[~2021-04-02] MED LIST changes: -LR 1,000 ML IV ONE; -ceFAZolin SOD 2 GM in IV 1 EA IV ONE
== END ==
LOC: M LABSMTC 09:04
PROVIDERS: ATTEND Anesthesiology
DX: Z01.818 Encounter for other preprocedural examination (principal); Z20.822 Contact with and (suspected) exposure to COVID-19

== ENCOUNTER 2021-04-07 12:51 | Day surgery (SDC) | payer MEDICARE ==
[~2021-04-07] VITALS: Ht 177.8 cm; Wt 100.2 kg
[2021-04-07] MEDS ORDERED: NS 1,000 ML IV ONE (13:20)
[2021-04-07] MEDS ORDERED: LIDOCAINE VISCOUS 2% SOLN 15ML UDC As Ordered ONE ×2 (14:20→14:21)
[2021-04-07] MEDS ORDERED: MIDAZOLAM INJ 2MG/2ML VIAL (J2250 PER 1MG) As Ordered ONE ×2 (14:27→14:34)
[2021-04-07 15:25] VITALS: BP 155/96
--- NOTE | 2021-04-07 17:26 | T-ECHO ---
TRANSESOPHAGEAL ECHO DATE: 04/07/2021 REFERRING PHYSICIAN: Ramez Bautista M.D. PREPROCEDURE DIAGNOSIS: Cryptogenic stroke. POSTPROCEDURE DIAGNOSES: 1. Mitral valve prolapse with moderate mitral valve regurgitation. 2. Atrial fibrillation. 3. Aortic valve sclerosis with mild aortic regurgitation. PRINCIPAL FINDINGS: Mitral valve prolapse with moderate mitral regurgitation. Atrial fibrillation. Mild aortic valve sclerosis with mild aortic regurgitation. Mild atheroma in the distal aortic arch and descending thoracic aorta. PROCEDURE PERFORMED: Transesophageal echocardiogram with saline bubble study times one. PROCEDURE PERFORMED BY: Ramez Bautista M.D. ASSISSTANT: None. ANESTHESIA: Midazolam 6 mg intravenous (IV) given for IV sedation. COMPLICATIONS: None. PROCEDURE DESCRIPTION: Patient received viscous Lidocaine to gargle and swallow. He received a total of 6 mg midazolam IV for light sedation. Patient tolerated the procedure well without any immediate complications. Esophageal intubation was accomplished without difficulty by Dr. Bautista by using a Ferguson 2-dimensional transesophageal echocardiogram probe. The rhythm was atrial fibrillation. The left ventricle appeared normal in size and systolic function without regional wall motion abnormalities. The left ventricular ejection fraction (LVEF) was 65% by visual estimate. Right ventricle appeared normal in size and systolic function. The atrial septum was intact anatomically and by color flow Doppler. Saline bubble study times one was performed with Valsalva maneuver release and did not show any right to left side intracardiac shunting or intrapulmonary shunting. The saline bubble study was done using 1 mL of the patient's own blood withdrawn from the IV site mixed with 6 mL of normal saline and 1 mL of air, which was then swished back and forth across the 3-way stop-cock to create the saline bubbles. No mass or thrombi were seen within the atria or appendages. No pericardial effusion. Distal aortic arch and descending thoracic artery showed mild atheroma without mobile components. There was focal prolapse involving the anterior mitral leaflet. Associated moderate mitral regurgitation. No mitral stenosis. Aortic valve was A3-cusp and displayed mild focal flexing and focal cusp deposits. Mild aortic valve regurgitation was present. Tricuspid and pulmonic valves appear normal. CONCULSIONS: 1. Mitral valve prolapse with moderate mitral valve regurgitation. 2. Atrial fibrillation. 3. Mild aortic valve sclerosis of A3-cusp aortic valve. Mild aortic regurgitation. 4. Mild atheroma involving the distal aortic arch and descending thoracic aorta. 5. Normal left and right ventricular systolic function. Left ventricular ejection fraction (LVEF) 65% by visual estimate. MTDD
--- NOTE | 2021-04-08 07:54 | ECGEPIP ---
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
== END 2021-04-07 13:15 | disposition home or self-care (01) ==
LOC: M OPP 12:51
PROVIDERS: ATTEND Internal Medicine Cardiovascular Disease
DX: I63.9 Cerebral infarction, unspecified (principal); I34.1 Nonrheumatic mitral (valve) prolapse; I48.91 Unspecified atrial fibrillation
CPT/HCPCS: 93005; 93312; 93320; 93325; J2250

== ENCOUNTER → 2021-04-21 | Outpatient (REF) | payer MEDICARE | LOC: M LAB REF 12:43 | PROVIDERS: ATTEND Internal Medicine Nephrology | DX: E83.42 Hypomagnesemia (principal) ==

== ENCOUNTER → 2021-07-27 | Outpatient (REF) | payer MEDICARE ==
[~2021-07-27] MED LIST changes: +POTA-151 PO; -POTA20TA6 PO
[2021-07-27 17:50] LABS: HEMATOCRIT 52.3 % (42.0-52.0); HEMOGLOBIN 17.6 g/dl (13.5-17.5); MEAN CORPUSCULAR HEMOGLOBIN 31.3 pg (27.0-33.0); MEAN CORPUSCULAR HGB CONC 33.7 g/dl (32.0-36.5); MEAN CORPUSCULAR VOLUME 92.9 fl (80.0-96.0); PLATELET COUNT, AUTOMATED 186 10^3/uL (150-450); RED BLOOD COUNT 5.63 10^6/uL (4.30-6.10); WHITE BLOOD COUNT 9.2 10^3/uL (4.0-10.0)
[2021-07-27 18:25] LABS: ALBUMIN 3.8 GM/DL (3.2-5.2); BILIRUBIN,TOTAL 0.6 MG/DL (0.2-1.0); CHOLESTEROL RISK RATIO 4.09 (<5); CREATININE FOR GFR 1.47 MG/DL (0.70-1.30); FREE T4 0.96 NG/DL (0.76-1.46); POTASSIUM SERUM 5.2 MEQ/L (3.5-5.1); THYROID STIMULATING HORMONE 0.677 uIU/ML (0.358-3.740); TOTAL PROTEIN 7.6 GM/DL (6.4-8.2); URIC ACID 7.5 MG/DL (3.5-7.2)
== END ==
LOC: M SFHCADAM 14:18
PROVIDERS: ATTEND Family Medicine
DX: Z12.5 Encounter for screening for malignant neoplasm of prostate (principal); I48.0 Paroxysmal atrial fibrillation; N18.31 Chronic kidney disease, stage 3a; I11.9 Hypertensive heart disease without heart failure; M1A.30X0 Chronic gout due to renal impairment, unspecified site, without tophus (tophi); I63.9 Cerebral infarction, unspecified; J30.89 Other allergic rhinitis
CPT/HCPCS: 80053; 80061; 84439; 84443; 84550; 85027; G0103; G0463

== ENCOUNTER → 2021-12-08 | Outpatient (CLI) | payer MEDICARE | LOC: M ADAMS 09:21 | PROVIDERS: ATTEND Family Medicine | DX: R05.9 Cough, unspecified (principal) ==

== ENCOUNTER → 2021-12-08 | Outpatient (REF) | payer MEDICARE ==
[2021-12-08 13:20] LABS: HEMATOCRIT 52.1 % (42.0-52.0); HEMOGLOBIN 17.6 g/dl (13.5-17.5); MEAN CORPUSCULAR HEMOGLOBIN 30.9 pg (27.0-33.0); MEAN CORPUSCULAR HGB CONC 33.8 g/dl (32.0-36.5); MEAN CORPUSCULAR VOLUME 91.6 fl (80.0-96.0); PLATELET COUNT, AUTOMATED 192 10^3/uL (150-450); RED BLOOD COUNT 5.69 10^6/uL (4.30-6.10); WHITE BLOOD COUNT 8.6 10^3/uL (4.0-10.0)
[2021-12-08 15:58] LABS: CALCIUM LEVEL 9.6 MG/DL (8.8-10.2); CREATININE FOR GFR 1.29 MG/DL (0.70-1.30); GLOMERULAR FILTRATION RATE 58.1 (>42); POTASSIUM SERUM 4.7 MEQ/L (3.5-5.1)
== END ==
LOC: M SFHCADAM 08:43
PROVIDERS: ATTEND Family Medicine
DX: D75.1 Secondary polycythemia (principal); I11.9 Hypertensive heart disease without heart failure; N18.31 Chronic kidney disease, stage 3a; R05.9 Cough, unspecified; R60.0 Localized edema

== ENCOUNTER → 2021-12-21 | Outpatient (CLI) | payer MEDICARE ==
[~2021-12-21] MED LIST changes: +ISOVUE-370 76% 100ML VIAL As Ordered ONE
== END ==
LOC: M RAD 08:39
PROVIDERS: ATTEND Family Medicine
DX: R91.1 Solitary pulmonary nodule (principal)
CPT/HCPCS: 71260; Q9967

== ENCOUNTER → 2022-02-08 | Outpatient (CLI) | payer MEDICARE ==
[~2022-02-08] MED LIST changes: -ISOVUE-370 76% 100ML VIAL As Ordered ONE
== END ==
LOC: M ADAMS 14:07
PROVIDERS: ATTEND Family Medicine
DX: L97.529 Non-pressure chronic ulcer of other part of left foot with unspecified severity (principal); M19.072 Primary osteoarthritis, left ankle and foot

== ENCOUNTER → 2022-04-21 | Outpatient (REF) | payer MEDICARE | LOC: M LAB REF 16:45 | PROVIDERS: ATTEND Podiatrist | DX: L89.892 Pressure ulcer of other site, stage 2 (principal) ==

== ENCOUNTER → 2022-04-21 | Outpatient (CLI) | payer MEDICARE | LOC: M RAD 11:19 | PROVIDERS: ATTEND Nurse Practitioner Family | DX: N20.0 Calculus of kidney (principal) ==

== ENCOUNTER → 2022-04-22 | Outpatient (CLI) | payer MEDICARE | LOC: M PLAIMG 09:09 | PROVIDERS: ATTEND Nurse Practitioner Family | DX: N20.0 Calculus of kidney (principal); N17.9 Acute kidney failure, unspecified; M43.16 Spondylolisthesis, lumbar region; N28.1 Cyst of kidney, acquired ==

== ENCOUNTER → 2022-04-29 | Outpatient (REF) | payer MEDICARE ==
[2022-04-29 13:34] LABS: APPEARANCE, URINE MANUAL HAZY (CLEAR); COLOR, URINE MANUAL YELLOW (YELLOW)
[2022-04-29 13:35] LABS: BILIRUBIN, URINE MANUAL NEGATIVE (NEGATIVE); BLOOD URINE MANUAL POSITIVE (NEGATIVE); GLUCOSE, URINE (UA) MANUAL NEGATIVE (NEGATIVE); KETONE, URINE MANUAL NEGATIVE (NEGATIVE); LEUKOCYTE ESTERASE, URINE MAN NEGATIVE (NEGATIVE); NITRITE, URINE MANUAL NEGATIVE (NEGATIVE); PROTEIN, URINE MANUAL 1+ mg/dL (NEGATIVE); SPECIFIC GRAVITY,URINE MANUAL 1.025 (1.002-1.035); UROBILINOGEN, URINE MANUAL NORMAL (NORMAL)
[2022-04-29 13:52] LABS: BACTERIA, URINE MOD AMOUNT; RBC, URINE TNTC /hpf (0-3); SPERM, URINE LARGE AMOUNT; SQUAMOUS EPITHELIAL CELL URINE SMALL AMOUNT /hpf (SMALL AMT)
[2022-04-29 13:53] LABS: HYALINE CAST, URINE 15-20 /lpf (0-1)
== END ==
LOC: M SMT 13:08
PROVIDERS: ATTEND Physician Assistant
DX: N20.1 Calculus of ureter (principal)

== ENCOUNTER → 2022-05-13 | Outpatient (CLI) | payer MEDICARE ==
[2022-05-13 14:28] LABS: BASO # 0.1 10^3/uL (0.0-0.2); BASO % 0.5 % (0.0-1.0); EOS # 0.1 10^3/uL (0.0-0.5); EOS % 1.4 % (0.0-3.0); HEMATOCRIT 49.8 % (42.0-52.0); HEMOGLOBIN 16.4 g/dl (13.5-17.5); LYMPH # 1.5 10^3/uL (1.5-5.0); MEAN CORPUSCULAR HEMOGLOBIN 30.3 pg (27.0-33.0); MEAN CORPUSCULAR HGB CONC 32.9 g/dl (32.0-36.5); MEAN CORPUSCULAR VOLUME 91.9 fl (80.0-96.0); MONO # 0.7 10^3/uL (0.0-0.8); MONO % 7.1 % (2.0-8.0); NEUTROPHILS # 6.9 10^3/uL (1.5-8.5); NEUTROPHILS % 74.6 % (36.0-66.0); PLATELET COUNT, AUTOMATED 188 10^3/uL (150-450); RED BLOOD COUNT 5.42 10^6/uL (4.30-6.10); WHITE BLOOD COUNT 9.2 10^3/uL (4.0-10.0)
[2022-05-13 15:50] LABS: CALCIUM LEVEL 9.1 MG/DL (8.8-10.2); CREATININE FOR GFR 1.94 MG/DL (0.70-1.30); GLOMERULAR FILTRATION RATE 36.3 (>42)
== END ==
LOC: M LAB 13:26
PROVIDERS: ATTEND Physician Assistant
DX: Z01.818 Encounter for other preprocedural examination (principal); Z79.899 Other long term (current) drug therapy

== ENCOUNTER → 2022-05-26 | Outpatient (REF) | payer MEDICARE ==
[~2022-05-26] MED LIST changes: +CETI5TAB5 PO; +XARE15TA PO
[2022-05-26 14:08] LABS: APPEARANCE, URINE MANUAL CLEAR (CLEAR); COLOR, URINE MANUAL YELLOW (YELLOW); PROTEIN, URINE MANUAL 1+ mg/dL (NEGATIVE); SPECIFIC GRAVITY,URINE MANUAL 1.015 (1.002-1.035)
[2022-05-26 14:09] LABS: BILIRUBIN, URINE MANUAL NEGATIVE (NEGATIVE); BLOOD URINE MANUAL POSITIVE (NEGATIVE); GLUCOSE, URINE (UA) MANUAL NEGATIVE (NEGATIVE); KETONE, URINE MANUAL NEGATIVE (NEGATIVE); LEUKOCYTE ESTERASE, URINE MAN NEGATIVE (NEGATIVE); NITRITE, URINE MANUAL NEGATIVE (NEGATIVE); UROBILINOGEN, URINE MANUAL NORMAL (NORMAL)
[2022-05-26 14:58] LABS: RBC, URINE 30-40 /hpf (0-3)
[2022-05-26 14:59] LABS: BACTERIA, URINE MOD AMOUNT; MUCUS, URINE LARGE AMOUNT (NEGATIVE)
[2022-05-26 15:00] LABS: SQUAMOUS EPITHELIAL CELL URINE SMALL AMOUNT /hpf (SMALL AMT)
== END ==
LOC: M SFHCADAM 08:36
PROVIDERS: ATTEND Physician Assistant
DX: N20.2 Calculus of kidney with calculus of ureter (principal)

== ENCOUNTER → 2022-05-26 | Outpatient (CLI) | payer MEDICARE ==
[~2022-05-26] MED LIST changes: +FLOM0.4C39 PO
== END ==
LOC: M ADAMS 09:19
PROVIDERS: ATTEND Physician Assistant
DX: Z01.818 Encounter for other preprocedural examination (principal)

== ENCOUNTER → 2022-05-29 | Outpatient (CLI) | payer MEDICARE ==
[~2022-05-29] MED LIST changes: -FLOM0.4C39 PO
== END ==
LOC: M LABSMTC 11:24
PROVIDERS: ATTEND Anesthesiology
DX: Z01.812 Encounter for preprocedural laboratory examination (principal); Z20.822 Contact with and (suspected) exposure to COVID-19

== ENCOUNTER 2022-06-03 08:42 | Day surgery (SDC) | payer MEDICARE ==
[~2022-06-03] VITALS: Ht 180.3 cm; Wt 99.2 kg
[~2022-06-03 08:42] MED LIST changes: +KETOROLAC 60MG 2ML VIAL As Ordered ONE; +LIDOCAINE 2% 100MG/5ML SDV (FOR ANES.) As Ordered ONE; +MIDAZOLAM INJ 2MG/2ML VIAL (J2250 PER 1MG) As Ordered ONE; +ONDANSETRON 4MG 2ML VIAL As Ordered ONE; +ceFAZolin SOD 2 GM in IV 1 EA IV ONE; +dexameTHASONE 4 MG/ML 1ML VIAL (J1100 PER 1MG) As Ordered ONE; +fentaNYL 100 MCG/2 ML INJECTION As Ordered ONE; +propofoL 200 MG/20 ML VIAL As Ordered ONE
[2022-06-03] MEDS ORDERED: LR 1,000 ML IV SCH ×2 (09:10→12:25)
[2022-06-03] MEDS ORDERED: ISOVUE-300 61% 50ML VIAL As Ordered ONE (10:07)
[2022-06-03] MEDS ORDERED: ACETAMINOPHEN 1000MG 100ML IV BTL (OFIRMEV) (J0131 PER 10MG) As Ordered ONE (10:34)
[2022-06-03] MEDS ORDERED: ePHEDrine SULFATE 25 MG/5 ML(5MG/ML) SYRINGE As Ordered ONE (10:49)
[2022-06-03] MEDS ORDERED: fentaNYL 100 MCG/2 ML INJECTION As Ordered ONE (12:23)
[2022-06-03] MEDS ORDERED: HYDROMORPHONE HCL 0.5 MG/ 0.5 ML SYRINGE (J1170 PER 1) IV PRN (12:25)
[2022-06-03] MEDS ORDERED: ONDANSETRON 4MG 2ML VIAL IV PRN (12:25)
[2022-06-03] MEDS ORDERED: oxyCODONE 5MG TAB PO PRN (12:25)
[2022-06-03] MEDS ORDERED: fentaNYL 100 MCG/2 ML INJECTION IV PRN (12:25)
[2022-06-03] MEDS ORDERED: FLOM0.4C39 PO (13:03)
[2022-06-03 13:25] VITALS: BP 138/94
[2022-06-09 14:08] LABS: Ca Ox Monohydrate 100 % (.); Size 6x4 mm (.)
== END 2022-06-03 14:09 | disposition home or self-care (01) ==
LOC: M SDC 08:42
PROVIDERS: ATTEND Urology
DX: N20.2 Calculus of kidney with calculus of ureter (principal); I12.9 Hypertensive chronic kidney disease with stage 1 through stage 4 chronic kidney disease, or unspecified chronic kidney disease; I48.0 Paroxysmal atrial fibrillation; N18.32 Chronic kidney disease, stage 3b; M10.9 Gout, unspecified; G62.9 Polyneuropathy, unspecified; Z86.16 Personal history of COVID-19; Z86.73 Personal history of transient ischemic attack (TIA), and cerebral infarction without residual deficits; I34.0 Nonrheumatic mitral (valve) insufficiency; Z87.891 Personal history of nicotine dependence; Z79.899 Other long term (current) drug therapy; Z79.01 Long term (current) use of anticoagulants
CPT/HCPCS: 52356; 74420; 82365; C1769; C1894; C2617; J0131; J0690; J1100; J1885; J2250; J2405; J3010; Q9967

== ENCOUNTER → 2022-06-17 | Outpatient (CLI) | payer MEDICARE ==
[~2022-06-17] MED LIST changes: +FLOM0.4C39 PO; -KETOROLAC 60MG 2ML VIAL As Ordered ONE; -LIDOCAINE 2% 100MG/5ML SDV (FOR ANES.) As Ordered ONE; -MIDAZOLAM INJ 2MG/2ML VIAL (J2250 PER 1MG) As Ordered ONE; -ONDANSETRON 4MG 2ML VIAL As Ordered ONE; -ceFAZolin SOD 2 GM in IV 1 EA IV ONE; -dexameTHASONE 4 MG/ML 1ML VIAL (J1100 PER 1MG) As Ordered ONE; -fentaNYL 100 MCG/2 ML INJECTION As Ordered ONE; -propofoL 200 MG/20 ML VIAL As Ordered ONE
== END ==
LOC: M RAD 09:18
PROVIDERS: ATTEND Urology
DX: N20.0 Calculus of kidney (principal)

== ENCOUNTER → 2022-08-05 | Outpatient (CLI) | payer MEDICARE ==
[2022-08-05 12:40] LABS: BASO % 0.2 % (0.0-1.0); EOS # 0.1 10^3/uL (0.0-0.5); EOS % 0.4 % (0.0-3.0); HEMATOCRIT 46.1 % (42.0-52.0); HEMOGLOBIN 15.3 g/dl (13.5-17.5); LYMPH # 1.3 10^3/uL (1.5-5.0); MEAN CORPUSCULAR HEMOGLOBIN 30.8 pg (27.0-33.0); MEAN CORPUSCULAR HGB CONC 33.2 g/dl (32.0-36.5); MEAN CORPUSCULAR VOLUME 92.9 fl (80.0-96.0); NEUTROPHILS # 10.2 10^3/uL (1.5-8.5); NEUTROPHILS % 80.8 % (36.0-66.0); PLATELET COUNT, AUTOMATED 180 10^3/uL (150-450); RED BLOOD COUNT 4.96 10^6/uL (4.30-6.10); WHITE BLOOD COUNT 12.6 10^3/uL (4.0-10.0)
[2022-08-05 13:26] LABS: ERYTHROCYTE SEDIMENTATION RATE 82 mm/hr (0-20)
== END ==
LOC: M LAB 11:34
PROVIDERS: ATTEND Podiatrist
DX: L03.116 Cellulitis of left lower limb (principal)

== ENCOUNTER → 2022-08-12 | Outpatient (CLI) | payer MEDICARE ==
[~2022-08-12] MED LIST changes: +LIDOCAINE 1% MDV 20ML VIAL As Ordered ONE
[2022-08-12 10:35] VITALS: BP 153/92
== END ==
LOC: M IRPRO 09:49
PROVIDERS: ATTEND Physician Assistant
DX: L03.116 Cellulitis of left lower limb (principal)
CPT/HCPCS: 36571; 76937; C1751

== ENCOUNTER → 2022-08-19 | Outpatient (REF) | payer MEDICARE ==
[~2022-08-19] MED LIST changes: -LIDOCAINE 1% MDV 20ML VIAL As Ordered ONE
[2022-08-19 18:44] LABS: HEMATOCRIT 39.1 % (42.0-52.0); HEMOGLOBIN 12.5 g/dl (13.5-17.5); MEAN CORPUSCULAR HEMOGLOBIN 30.6 pg (27.0-33.0); MEAN CORPUSCULAR VOLUME 95.8 fl (80.0-96.0); PLATELET COUNT, AUTOMATED 255 10^3/uL (150-450); RED BLOOD COUNT 4.08 10^6/uL (4.30-6.10)
[2022-08-19 19:05] LABS: ERYTHROCYTE SEDIMENTATION RATE 97 mm/hr (0-20)
[2022-08-19 19:15] LABS: ALBUMIN 2.4 G/DL (3.2-5.2); BILIRUBIN,TOTAL 0.3 MG/DL (0.3-1.2); C REACTIVE PROTEIN QUANTITATIV 10.1 MG/DL (<1.0); CALCIUM LEVEL 8.5 MG/DL (8.3-10.6); CREATININE FOR GFR 1.83 MG/DL (0.70-1.30); GLOMERULAR FILTRATION RATE 38.7 (>42); POTASSIUM SERUM 4.6 MMOL/L (3.5-5.1); TOTAL PROTEIN 6.8 G/DL (5.7-8.2)
== END ==
LOC: M LABDRWAD 16:02 → M LAB REF 16:02
PROVIDERS: ATTEND Physician Assistant
DX: L03.116 Cellulitis of left lower limb (principal)

== ENCOUNTER → 2022-08-26 | Outpatient (REF) | payer MEDICARE ==
[2022-08-26 15:10] LABS: HEMATOCRIT 46.8 % (42.0-52.0); HEMOGLOBIN 15.2 g/dl (13.5-17.5); MEAN CORPUSCULAR HEMOGLOBIN 30.8 pg (27.0-33.0); MEAN CORPUSCULAR HGB CONC 32.5 g/dl (32.0-36.5); MEAN CORPUSCULAR VOLUME 94.9 fl (80.0-96.0); PLATELET COUNT, AUTOMATED 304 10^3/uL (150-450); RED BLOOD COUNT 4.93 10^6/uL (4.30-6.10); WHITE BLOOD COUNT 9.9 10^3/uL (4.0-10.0)
[2022-08-26 15:36] LABS: ERYTHROCYTE SEDIMENTATION RATE 108 mm/hr (0-20)
[2022-08-26 16:11] LABS: ALBUMIN 2.8 G/DL (3.2-5.2); ALKALINE PHOSPHATASE 69 U/L (46-116); ALT/SGPT < 9 U/L (7.0-40); AST/SGOT 26 U/L (<34); BILIRUBIN,TOTAL 0.3 MG/DL (0.3-1.2); BLOOD UREA NITROGEN 50 MG/DL (9-23); CARBON DIOXIDE LEVEL 22 MMOL/L (20-31); CHLORIDE LEVEL 106 MMOL/L (98-107); CREATININE FOR GFR 2.31 MG/DL (0.70-1.30); GLOMERULAR FILTRATION RATE 29.6 (>42); GLUCOSE, FASTING 73 MG/DL (74-106); SODIUM LEVEL 139 MMOL/L (136-145); TOTAL PROTEIN 8.1 G/DL (5.7-8.2)
== END ==
LOC: M LAB REF 14:32
PROVIDERS: ATTEND Physician Assistant
DX: E11.69 Type 2 diabetes mellitus with other specified complication (principal); N18.9 Chronic kidney disease, unspecified; Z79.01 Long term (current) use of anticoagulants

== ENCOUNTER → 2022-09-02 | Outpatient (REF) | payer MEDICARE ==
[~2022-09-02] MED LIST changes: +CEFA2VIA; +GABA-1171 PO
[2022-09-02 18:10] LABS: HEMATOCRIT 42.3 % (42.0-52.0); HEMOGLOBIN 13.5 g/dl (13.5-17.5); MEAN CORPUSCULAR HEMOGLOBIN 30.1 pg (27.0-33.0); MEAN CORPUSCULAR HGB CONC 31.9 g/dl (32.0-36.5); MEAN CORPUSCULAR VOLUME 94.4 fl (80.0-96.0); PLATELET COUNT, AUTOMATED 271 10^3/uL (150-450); RED BLOOD COUNT 4.48 10^6/uL (4.30-6.10)
[2022-09-02 18:18] LABS: ERYTHROCYTE SEDIMENTATION RATE 73 mm/hr (0-20)
[2022-09-02 18:23] LABS: ALBUMIN 2.8 G/DL (3.2-5.2); ALKALINE PHOSPHATASE 63 U/L (46-116); ALT/SGPT < 9 U/L (7.0-40); AST/SGOT 20 U/L (<34); BILIRUBIN,TOTAL 0.2 MG/DL (0.3-1.2); BLOOD UREA NITROGEN 38 MG/DL (9-23); CALCIUM LEVEL 7.9 MG/DL (8.3-10.6); CARBON DIOXIDE LEVEL 23 MMOL/L (20-31); CHLORIDE LEVEL 109 MMOL/L (98-107); CREATININE FOR GFR 1.93 MG/DL (0.70-1.30); GLOMERULAR FILTRATION RATE 36.4 (>42); GLUCOSE, FASTING 87 MG/DL (74-106); POTASSIUM SERUM 4.2 MMOL/L (3.5-5.1); SODIUM LEVEL 141 MMOL/L (136-145); TOTAL PROTEIN 7.5 G/DL (5.7-8.2)
== END ==
LOC: M LAB REF 17:39
PROVIDERS: ATTEND Physician Assistant
DX: E11.69 Type 2 diabetes mellitus with other specified complication (principal); N18.9 Chronic kidney disease, unspecified; Z79.01 Long term (current) use of anticoagulants

== ENCOUNTER 2022-09-05 10:47 | Emergency (ER) | payer MEDICARE ==
[~2022-09-05] VITALS: Ht 177.8 cm; Wt 96.5 kg
[~2022-09-05 10:47] MED LIST changes: -CEFA2VIA; -GABA-1171 PO
[2022-09-05] MEDS ORDERED: CEFA2VIA (11:31)
[2022-09-05] MEDS ORDERED: GABAPENTIN 100 MG CAP PO ONE (12:15)
[2022-09-05] MEDS ORDERED: SODIUM CHLORIDE 0.9% INJ 10 ML SYR IV PRN (13:55)
[2022-09-05] MEDS ORDERED: ACETAMINOPHEN 1000MG 100ML IV BAG IV ONE (13:55)
[2022-09-05] MEDS ORDERED: GABA-1171 PO (14:02)
[2022-09-05 14:25] VITALS: BP 150/96
[2022-09-05] MEDS ORDERED: SODIUM CHLORIDE 0.9% INJ 10 ML SYR IV SCH (18:00)
== END 2022-09-05 14:45 | disposition home or self-care (01) ==
LOC: M ED 10:47
DX: S32.030A Wedge compression fracture of third lumbar vertebra, initial encounter for closed fracture (principal); M47.816 Spondylosis without myelopathy or radiculopathy, lumbar region; I10 Essential (primary) hypertension; N18.30 Chronic kidney disease, stage 3 unspecified; Z86.73 Personal history of transient ischemic attack (TIA), and cerebral infarction without residual deficits; I48.91 Unspecified atrial fibrillation; Z87.891 Personal history of nicotine dependence; Z79.01 Long term (current) use of anticoagulants; Z79.899 Other long term (current) drug therapy; Z88.8 Allergy status to other drugs, medicaments and biological substances
CPT/HCPCS: 72110; 96374; 99283; J0131

== ENCOUNTER → 2022-09-09 | Outpatient (CLI) | payer MEDICARE ==
[~2022-09-09] MED LIST changes: +CEFA2VIA; +GABA-1171 PO
== END ==
LOC: M RAD 08:28
PROVIDERS: ATTEND Physician Assistant Surgical
DX: M51.36 Other intervertebral disc degeneration, lumbar region (principal); M48.061 Spinal stenosis, lumbar region without neurogenic claudication; M51.26 Other intervertebral disc displacement, lumbar region

== ENCOUNTER → 2022-09-09 | Outpatient (REF) | payer MEDICARE ==
[2022-09-09 16:45] LABS: HEMATOCRIT 42.7 % (42.0-52.0); HEMOGLOBIN 13.7 g/dl (13.5-17.5); MEAN CORPUSCULAR HEMOGLOBIN 30.5 pg (27.0-33.0); MEAN CORPUSCULAR HGB CONC 32.1 g/dl (32.0-36.5); MEAN CORPUSCULAR VOLUME 95.1 fl (80.0-96.0); PLATELET COUNT, AUTOMATED 200 10^3/uL (150-450); RED BLOOD COUNT 4.49 10^6/uL (4.30-6.10); WHITE BLOOD COUNT 10.1 10^3/uL (4.0-10.0)
[2022-09-09 17:05] LABS: ALKALINE PHOSPHATASE 57 U/L (46-116); ALT/SGPT < 9 U/L (7.0-40); AST/SGOT 26 U/L (<34); BILIRUBIN,TOTAL 0.3 MG/DL (0.3-1.2); BLOOD UREA NITROGEN 41 MG/DL (9-23); CALCIUM LEVEL 8.6 MG/DL (8.3-10.6); CARBON DIOXIDE LEVEL 24 MMOL/L (20-31); CHLORIDE LEVEL 108 MMOL/L (98-107); GLOMERULAR FILTRATION RATE 39.5 (>42); GLUCOSE, FASTING 93 MG/DL (74-106); POTASSIUM SERUM 4.2 MMOL/L (3.5-5.1); SODIUM LEVEL 142 MMOL/L (136-145); TOTAL PROTEIN 7.6 G/DL (5.7-8.2)
[2022-09-09 17:42] LABS: ERYTHROCYTE SEDIMENTATION RATE 54 mm/hr (0-20)
== END ==
LOC: M LAB REF 16:04
PROVIDERS: ATTEND Physician Assistant
DX: E11.69 Type 2 diabetes mellitus with other specified complication (principal); N18.9 Chronic kidney disease, unspecified; Z79.01 Long term (current) use of anticoagulants

== ENCOUNTER → 2022-11-02 | Outpatient (REF) | payer MEDICARE ==
[2022-11-02 13:27] LABS: HEMATOCRIT 35.8 % (42.0-52.0); HEMOGLOBIN 11.3 g/dl (13.5-17.5); MEAN CORPUSCULAR HEMOGLOBIN 31.3 pg (27.0-33.0); MEAN CORPUSCULAR HGB CONC 31.6 g/dl (32.0-36.5); MEAN CORPUSCULAR VOLUME 99.2 fl (80.0-96.0); PLATELET COUNT, AUTOMATED 241 10^3/uL (150-450); RED BLOOD COUNT 3.61 10^6/uL (4.30-6.10); WHITE BLOOD COUNT 14.3 10^3/uL (4.0-10.0)
[2022-11-02 13:51] LABS: ALBUMIN 3.2 G/DL (3.2-5.2); ALKALINE PHOSPHATASE 63 U/L (46-116); ALT/SGPT < 9 U/L (7.0-40); AST/SGOT < 8 U/L (<34); BILIRUBIN,TOTAL 0.5 MG/DL (0.3-1.2); BLOOD UREA NITROGEN 29 MG/DL (9-23); CALCIUM LEVEL 8.7 MG/DL (8.3-10.6); CARBON DIOXIDE LEVEL 24 MMOL/L (20-31); CHLORIDE LEVEL 113 MMOL/L (98-107); CHOLESTEROL LEVEL 164 MG/DL (<200); CHOLESTEROL RISK RATIO 4.12 (<5); GLOMERULAR FILTRATION RATE 45.2 (>42); GLUCOSE, FASTING 103 MG/DL (74-106); HDL CHOLESTEROL 39.8 MG/DL (>40); LDL CHOLESTEROL 101.6 MG/DL (<100); NON-HDL-C 124.2 MG/DL; POTASSIUM SERUM 4.4 MMOL/L (3.5-5.1); SODIUM LEVEL 144 MMOL/L (136-145); TOTAL PROTEIN 6.4 G/DL (5.7-8.2); TRIGLYCERIDES LEVEL 113 MG/DL (<150)
[2022-11-02 13:53] LABS: FREE T4 0.95 NG/DL (0.89-1.76); THYROID STIMULATING HORMONE 2.095 uIU/ML (0.55-4.78)
[2022-11-02 14:50] LABS: ERYTHROCYTE SEDIMENTATION RATE 26 mm/hr (0-20)
== END ==
LOC: M SFHCADAM 07:34
PROVIDERS: ATTEND Family Medicine
DX: E78.5 Hyperlipidemia, unspecified (principal); I48.0 Paroxysmal atrial fibrillation; N18.32 Chronic kidney disease, stage 3b; Z89.432 Acquired absence of left foot

== ENCOUNTER → 2022-12-13 | Outpatient (CLI) | payer MEDICARE | LOC: M PLAIMG 10:08 | PROVIDERS: ATTEND Urology | DX: N20.0 Calculus of kidney (principal) ==

== ENCOUNTER → 2023-01-24 | Outpatient (REF) | payer MEDICARE ==
[2023-01-24 13:14] LABS: HEMATOCRIT 50.5 % (42.0-52.0); MEAN CORPUSCULAR HEMOGLOBIN 28.8 pg (27.0-33.0); MEAN CORPUSCULAR HGB CONC 31.7 g/dl (32.0-36.5); PLATELET COUNT, AUTOMATED 223 10^3/uL (150-450); RED BLOOD COUNT 5.55 10^6/uL (4.30-6.10); WHITE BLOOD COUNT 9.5 10^3/uL (4.0-10.0)
[2023-01-24 13:17] LABS: APPEARANCE, URINE HAZY (CLEAR); BACTERIA, URINE AUTO NEGATIVE (NEGATIVE); BILIRUBIN, URINE AUTO NEGATIVE (NEGATIVE); BLOOD, URINE BLOOD 1+ (NEGATIVE); COLOR, URINE YELLOW (YELLOW); GLUCOSE, URINE (UA) AUTO NEGATIVE (NEGATIVE); KETONE, URINE AUTO NEGATIVE (NEGATIVE); LEUKOCYTE ESTERASE, URINE AUTO NEGATIVE (NEGATIVE); MUCUS, URINE SMALL (NEGATIVE); NITRITE, URINE AUTO NEGATIVE (NEGATIVE); PROTEIN, URINE AUTO 2+ mg/dL (NEGATIVE); RBC, URINE AUTO 4 /HPF (0-3); SPECIFIC GRAVITY URINE AUTO 1.023 (1.002-1.035); SQUAMOUS EPITHELIAL CELL UR AU 0 /HPF (0-6); UROBILINOGEN, URINE AUTO 0.2 mg/dL (0.0-2.0); WBC, URINE AUTO 1 /HPF (0-3)
[2023-01-24 13:19] LABS: INR 1.13; PARTIAL THROMBOPLASTIN TIME 31.9 SECONDS (24.8-34.2); PROTHROMBIN TIME 14.7 SECONDS (12.5-14.5)
[2023-01-24 13:22] LABS: ALBUMIN 3.4 G/DL (3.2-5.2); BILIRUBIN,TOTAL 0.5 MG/DL (0.3-1.2); CALCIUM LEVEL 8.4 MG/DL (8.3-10.6); CHOLESTEROL RISK RATIO 3.56 (<5); CREATININE FOR GFR 1.7 MG/DL (0.70-1.30); GLOMERULAR FILTRATION RATE 42.2 (>42); HDL CHOLESTEROL 36.5 MG/DL (>40); LDL CHOLESTEROL 63.9 MG/DL (<100); NON-HDL-C 93.5 MG/DL; POTASSIUM SERUM 4.2 MMOL/L (3.5-5.1); TOTAL PROTEIN 6.9 G/DL (5.7-8.2); URIC ACID 8.1 MG/DL (3.7-9.2)
== END ==
LOC: M SFHCADAM 08:40
PROVIDERS: ATTEND Family Medicine
DX: Z01.818 Encounter for other preprocedural examination (principal); I48.0 Paroxysmal atrial fibrillation; I11.9 Hypertensive heart disease without heart failure; N18.32 Chronic kidney disease, stage 3b; M1A.30X0 Chronic gout due to renal impairment, unspecified site, without tophus (tophi); E78.5 Hyperlipidemia, unspecified; D63.1 Anemia in chronic kidney disease

== ENCOUNTER → 2023-03-15 | Outpatient (REF) | payer MEDICARE ==
[2023-03-15 18:04] LABS: TOTAL PROTEIN,RANDOM URINE 122.9 MG/DL (0.0-14.0)
[2023-03-15 18:08] LABS: CREATININE,RANDOM URINE 166.6 MG/DL
== END ==
LOC: M LAB REF 17:08
PROVIDERS: ATTEND Nurse Practitioner Family
DX: R80.9 Proteinuria, unspecified (principal)

== ENCOUNTER → 2023-07-27 | Outpatient (CLI) | payer MEDICARE | LOC: M SLEEP HO 11:30 | PROVIDERS: ATTEND Physician Assistant | DX: G47.9 Sleep disorder, unspecified (principal); R00.1 Bradycardia, unspecified ==

== ENCOUNTER 2023-08-18 17:59 | Inpatient (IN) | payer MEDICARE ==
[~2023-08-18] VITALS: Ht 177.8 cm; Wt 98.6 kg
[2023-08-18] MEDS ORDERED: MORPHINE 4 MG/ML 1ML VIAL IV ONE (18:20)
[2023-08-18 18:34] LABS: BASO # 0.1 10^3/uL (0.0-0.2); BASO % 0.5 % (0.0-1.0); EOS # 0.1 10^3/uL (0.0-0.5); EOS % 0.8 % (0.0-3.0); HEMATOCRIT 51.3 % (42.0-52.0); HEMOGLOBIN 17.2 g/dl (13.5-17.5); LYMPH % 10.8 % (24.0-44.0); MEAN CORPUSCULAR HGB CONC 33.5 g/dl (32.0-36.5); MEAN CORPUSCULAR VOLUME 92.6 fl (80.0-96.0); MONO # 0.8 10^3/uL (0.0-0.8); MONO % 8.1 % (2.0-8.0); NEUTROPHILS # 7.6 10^3/uL (1.5-8.5); NEUTROPHILS % 79.3 % (36.0-66.0); PLATELET COUNT, AUTOMATED 189 10^3/uL (150-450); RED BLOOD COUNT 5.54 10^6/uL (4.30-6.10); WHITE BLOOD COUNT 9.6 10^3/uL (4.0-10.0)
[2023-08-18 19:07] LABS: CALCIUM LEVEL 8.6 MG/DL (8.3-10.6); CREATININE FOR GFR 1.76 MG/DL (0.70-1.30); GLOMERULAR FILTRATION RATE 40.4 (>42); POTASSIUM SERUM 4.4 MMOL/L (3.5-5.1)
[2023-08-18 19:18] LABS: INR 1.53; PROTHROMBIN TIME 17.9 SECONDS (12.5-14.5)
[2023-08-18 19:19] LABS: PARTIAL THROMBOPLASTIN TIME 29.5 SECONDS (24.8-34.2)
[2023-08-18] MEDS ORDERED: ISOVUE-370 76% 100ML VIAL As Ordered ONE (19:44)
[2023-08-18] MEDS ORDERED: **hydrALAZINE HCL** 25 MG TAB PO ONE (21:25)
[2023-08-18] MEDS ORDERED: DILT240C83 PO (22:06)
[2023-08-18] MEDS ORDERED: ATOR1TAB19 PO (22:06)
[2023-08-18] MEDS ORDERED: HOME MED LIST COMPLETE! XX SCH (22:10)
[2023-08-19] VITALS (9 sets, daily range): BP systolic 134–158; BP diastolic 79–99; TEMP 96.3–97.5; O2SAT 93–97
[2023-08-19] MEDS ORDERED: ONDANSETRON 4MG 2ML VIAL IV PRN ×2 (00:05→08:40)
[2023-08-19] MEDS ORDERED: HYDROMORPHONE HCL 0.5 MG/ 0.5 ML SYRINGE IV PRN ×2 (00:05→08:40)
[2023-08-19] MEDS: LR 1,000 ML IV SCH ×2 (00:58→07:37)
[2023-08-19] MEDS: dilTIAZem 120MG **CD** CAPSULE PO SCH ×2 (01:07→20:08)
[2023-08-19] MEDS: cloNIDine 0.1MG TABLET PO ONE (02:11)
[2023-08-19] MEDS: ACETAMINOPHEN TAB 650MG DOSE (2X325MG) PO PRN ×2 (05:49→16:00)
[2023-08-19 06:49] LABS: ALBUMIN 3.4 G/DL (3.2-5.2); BILIRUBIN,TOTAL 1.6 MG/DL (0.3-1.2); CALCIUM LEVEL 8.4 MG/DL (8.3-10.6); CREATININE FOR GFR 1.34 MG/DL (0.70-1.30); GLOMERULAR FILTRATION RATE 55.3 (>42); POTASSIUM SERUM 3.9 MMOL/L (3.5-5.1); TOTAL PROTEIN 6.8 G/DL (5.7-8.2)
[2023-08-19] MEDS ORDERED: propofoL 200 MG/20 ML VIAL As Ordered ONE (08:02)
[2023-08-19] MEDS ORDERED: fentaNYL 100 MCG/2 ML INJECTION As Ordered ONE (08:02)
[2023-08-19] MEDS ORDERED: LIDOCAINE 2% 100MG/5ML SDV (FOR ANES.) As Ordered ONE (08:02)
[2023-08-19] MEDS ORDERED: MIDAZOLAM INJ 2MG/2ML VIAL As Ordered ONE (08:02)
[2023-08-19] MEDS ORDERED: ONDANSETRON 4MG 2ML VIAL As Ordered ONE (08:29)
[2023-08-19] MEDS ORDERED: ceFAZolin 2 GM/D5W 50 ML IV BAG As Ordered ONE (08:34)
[2023-08-19] MEDS ORDERED: oxyCODONE 5MG TAB PO PRN (08:40)
[2023-08-19] MEDS ORDERED: fentaNYL 100 MCG/2 ML INJECTION IV PRN (08:40)
[2023-08-19] MEDS ORDERED: MEPERIDINE 25 MG/ML 1ML VIAL IV PRN (08:40)
[2023-08-19] MEDS: CHLORTHALIDONE 12.5MG PER 1/2 TABLET PO SCH (09:00)
[2023-08-19] MEDS: aMILoride 5 MG TAB PO SCH (09:00)
[2023-08-19] MEDS: **hydrALAZINE HCL** 25 MG TAB PO SCH ×3 (09:00→20:08)
[2023-08-19] MEDS ORDERED: CHLORTHALIDONE 12.5MG PER 1/2 TABLET PO SCH (09:00)
[2023-08-19] MEDS ORDERED: aMILoride 5 MG TAB PO SCH (09:00)
[2023-08-19] MEDS: allopurinoL 100 MG TAB PO SCH (10:01)
[2023-08-19] MEDS: ATORVASTATIN 10 MG TAB PO SCH (10:01)
[2023-08-19] MEDS ORDERED: PERCOCET 5MG/325MG TAB PO PRN ×2 (15:30)
[2023-08-19] MEDS: ceFAZolin SOD 2 GM in IV 1 EA IV SCH (16:08)
[2023-08-20] MEDS: ceFAZolin SOD 2 GM in IV 1 EA IV SCH (00:47)
[2023-08-20 03:54] VITALS: BP 129/80; TEMP 96.2; O2SAT 97
[2023-08-20 07:54] VITALS: BP 131/78; TEMP 96.4; O2SAT 94
[2023-08-20 08:04] LABS: BASO % 0.2 % (0.0-1.0); EOS % 0.1 % (0.0-3.0); HEMATOCRIT 48.1 % (42.0-52.0); HEMOGLOBIN 16.5 g/dl (13.5-17.5); LYMPH # 0.5 10^3/uL (1.5-5.0); LYMPH % 2.5 % (24.0-44.0); MEAN CORPUSCULAR HEMOGLOBIN 31.8 pg (27.0-33.0); MEAN CORPUSCULAR HGB CONC 34.3 g/dl (32.0-36.5); MEAN CORPUSCULAR VOLUME 92.7 fl (80.0-96.0); MONO # 0.6 10^3/uL (0.0-0.8); NEUTROPHILS # 17.5 10^3/uL (1.5-8.5); NEUTROPHILS % 93.7 % (36.0-66.0); PLATELET COUNT, AUTOMATED 167 10^3/uL (150-450); RED BLOOD COUNT 5.19 10^6/uL (4.30-6.10); WHITE BLOOD COUNT 18.7 10^3/uL (4.0-10.0)
[2023-08-20] MEDS: allopurinoL 100 MG TAB PO SCH (08:23)
[2023-08-20] MEDS: ACETAMINOPHEN TAB 650MG DOSE (2X325MG) PO PRN ×2 (08:23→20:22)
[2023-08-20] MEDS: CHLORTHALIDONE 12.5MG PER 1/2 TABLET PO SCH (08:23)
[2023-08-20] MEDS: **hydrALAZINE HCL** 25 MG TAB PO SCH ×3 (08:23→20:21)
[2023-08-20] MEDS: aMILoride 5 MG TAB PO SCH (08:24)
[2023-08-20] MEDS: ATORVASTATIN 10 MG TAB PO SCH (08:24)
[2023-08-20 08:40] LABS: ALBUMIN 2.9 G/DL (3.2-5.2); BILIRUBIN,DIRECT 0.3 MG/DL (<0.4); BILIRUBIN,TOTAL 0.6 MG/DL (0.3-1.2); CALCIUM LEVEL 8.1 MG/DL (8.3-10.6); CREATININE FOR GFR 1.4 MG/DL (0.70-1.30); GLOMERULAR FILTRATION RATE 52.6 (>42); MAGNESIUM LEVEL 1.9 MG/DL (1.8-2.4); POTASSIUM SERUM 4.4 MMOL/L (3.5-5.1); TOTAL PROTEIN 6.4 G/DL (5.7-8.2)
[2023-08-20 09:10] LABS: HEPATITIS B CORE ANTIBODY IGM NEGATIVE (NEGATIVE); HEPATITIS C VIRUS ABY INDEX 0.02 INDEX (<0.8)
[2023-08-20 12:01] VITALS: BP 133/86; TEMP 96.9; O2SAT 92
[2023-08-20 15:47] VITALS: BP 142/81; TEMP 98.5; O2SAT 97
[2023-08-20 19:07] VITALS: BP 149/91; TEMP 97.5; O2SAT 93
[2023-08-20] MEDS: dilTIAZem 120MG **CD** CAPSULE PO SCH (20:21)
[2023-08-20] MEDS ORDERED: RIVAROXABAN 15MG TAB (XARELTO) PO SCH (21:00)
[2023-08-20 23:16] VITALS: BP 139/90; TEMP 97.7; O2SAT 93
[2023-08-21 03:21] VITALS: BP 152/83; TEMP 96.7; O2SAT 95
[2023-08-21 06:45] LABS: BASO % 0.3 % (0.0-1.0); EOS # 0.3 10^3/uL (0.0-0.5); HEMATOCRIT 48.3 % (42.0-52.0); HEMOGLOBIN 16.4 g/dl (13.5-17.5); LYMPH # 1.1 10^3/uL (1.5-5.0); LYMPH % 6.8 % (24.0-44.0); MEAN CORPUSCULAR HEMOGLOBIN 31.7 pg (27.0-33.0); MEAN CORPUSCULAR VOLUME 93.4 fl (80.0-96.0); MONO # 0.8 10^3/uL (0.0-0.8); MONO % 5.1 % (2.0-8.0); NEUTROPHILS # 13.1 10^3/uL (1.5-8.5); NEUTROPHILS % 85.3 % (36.0-66.0); PLATELET COUNT, AUTOMATED 180 10^3/uL (150-450); RED BLOOD COUNT 5.17 10^6/uL (4.30-6.10); WHITE BLOOD COUNT 15.4 10^3/uL (4.0-10.0)
[2023-08-21 07:11] LABS: BILIRUBIN,DIRECT 0.2 MG/DL (<0.4); BILIRUBIN,TOTAL 0.5 MG/DL (0.3-1.2); CALCIUM LEVEL 8.4 MG/DL (8.3-10.6); CREATININE FOR GFR 1.42 MG/DL (0.70-1.30); GLOMERULAR FILTRATION RATE 51.7 (>42); MAGNESIUM LEVEL 1.9 MG/DL (1.8-2.4); POTASSIUM SERUM 4.2 MMOL/L (3.5-5.1); TOTAL PROTEIN 6.6 G/DL (5.7-8.2)
[2023-08-21] MEDS ORDERED: PERCOCET PO (07:17)
[2023-08-21 07:38] VITALS: BP 123/81; TEMP 97; O2SAT 92
[2023-08-21 08:39] VITALS: BP 123/81
[2023-08-21] MEDS: ATORVASTATIN 10 MG TAB PO SCH (08:39)
[2023-08-21] MEDS: allopurinoL 100 MG TAB PO SCH (08:39)
[2023-08-21] MEDS: CHLORTHALIDONE 12.5MG PER 1/2 TABLET PO SCH (08:39)
[2023-08-21] MEDS: aMILoride 5 MG TAB PO SCH (08:39)
[2023-08-21] MEDS: **hydrALAZINE HCL** 25 MG TAB PO SCH (08:39)
== END 2023-08-21 11:58 | disposition home health service (06) | DRG 482 ==
LOC: M ED 17:59 → M ED INP 23:45 → M PCU 08-19 03:06
PROVIDERS: ADMIT Internal Medicine; ATTEND Internal Medicine
PROC: 0QS604Z Reposition Right Upper Femur with Internal Fixation Device, Open Approach (ICD-10-PCS; principal; 2023-08-19 07:59)
DX: S72.011A Unspecified intracapsular fracture of right femur, initial encounter for closed fracture (principal); M10.9 Gout, unspecified; I10 Essential (primary) hypertension; E78.00 Pure hypercholesterolemia, unspecified; M85.851 Other specified disorders of bone density and structure, right thigh; I48.91 Unspecified atrial fibrillation; M25.511 Pain in right shoulder; G62.9 Polyneuropathy, unspecified; W00.0XXA Fall on same level due to ice and snow, initial encounter; Y92.9 Unspecified place or not applicable; Y93.9 Activity, unspecified; Y99.8 Other external cause status; Z79.01 Long term (current) use of anticoagulants; Z79.899 Other long term (current) drug therapy; Z88.8 Allergy status to other drugs, medicaments and biological substances

== ENCOUNTER → 2023-08-29 | Outpatient (CLI) | payer MEDICARE ==
[~2023-08-29] MED LIST changes: +ATOR1TAB19 PO; +DILT240C83 PO; +PERCOCET PO
== END ==
LOC: M SOG 07:54
PROVIDERS: ATTEND Physician Assistant
DX: S72.001A Fracture of unspecified part of neck of right femur, initial encounter for closed fracture (principal); Y93.9 Activity, unspecified; Y92.9 Unspecified place or not applicable

== ENCOUNTER → 2023-09-29 | Outpatient (CLI) | payer MEDICARE ==
[~2023-09-29] MED LIST changes: -HYDR-3910 PO; +HYDR25TA87 PO
== END ==
LOC: M SOG 14:08
PROVIDERS: ATTEND Physician Assistant
DX: M25.551 Pain in right hip (principal)

== ENCOUNTER → 2023-10-30 | Outpatient (REF) | payer MEDICARE ==
[2023-10-30 16:34] LABS: HEMATOCRIT 52.8 % (42.0-52.0); HEMOGLOBIN 17.6 g/dl (13.5-17.5); MEAN CORPUSCULAR HEMOGLOBIN 31.2 pg (27.0-33.0); MEAN CORPUSCULAR HGB CONC 33.3 g/dl (32.0-36.5); MEAN CORPUSCULAR VOLUME 93.6 fl (80.0-96.0); PLATELET COUNT, AUTOMATED 210 10^3/uL (150-450); RED BLOOD COUNT 5.64 10^6/uL (4.30-6.10); URIC ACID 7.3 MG/DL (3.7-9.2)
[2023-10-30 16:37] LABS: ALBUMIN 3.6 G/DL (3.2-5.2); BILIRUBIN,TOTAL 1.1 MG/DL (0.3-1.2); CHOLESTEROL RISK RATIO 3.65 (<5); CREATININE FOR GFR 1.43 MG/DL (0.70-1.30); GLOMERULAR FILTRATION RATE 51.3 (>42); HDL CHOLESTEROL 34.2 MG/DL (>40); LDL CHOLESTEROL 68.8 MG/DL (<100); MAGNESIUM LEVEL 1.6 MG/DL (1.8-2.4); NON-HDL-C 90.8 MG/DL; POTASSIUM SERUM 4.2 MMOL/L (3.5-5.1); TOTAL PROTEIN 7.3 G/DL (5.7-8.2)
[2023-10-30 16:50] LABS: HEMOGLOBIN A1c 5.5 % (4.0-6.0)
== END ==
LOC: M SFHCADAM 12:57
PROVIDERS: ATTEND Family Medicine
DX: I48.0 Paroxysmal atrial fibrillation (principal); N18.32 Chronic kidney disease, stage 3b; M1A.30X0 Chronic gout due to renal impairment, unspecified site, without tophus (tophi); E78.5 Hyperlipidemia, unspecified; Z13.1 Encounter for screening for diabetes mellitus; Z79.899 Other long term (current) drug therapy

== ENCOUNTER → 2023-11-10 | Outpatient (CLI) | payer MEDICARE | LOC: M SOG 08:16 | PROVIDERS: ATTEND Physician Assistant | DX: M25.551 Pain in right hip (principal) ==

== ENCOUNTER → 2023-12-22 | Outpatient (CLI) | payer MEDICARE | LOC: M RAD 11:51 | PROVIDERS: ATTEND Urology | DX: N20.0 Calculus of kidney (principal) ==

== ENCOUNTER → 2024-05-07 | Outpatient (REF) | payer MEDICARE ==
[2024-05-07 13:53] LABS: CALCIUM LEVEL 9.3 MG/DL (8.3-10.6); CREATININE FOR GFR 1.87 MG/DL (0.70-1.30); GLOMERULAR FILTRATION RATE 37.7 (>42); POTASSIUM SERUM 4.1 MMOL/L (3.5-5.1)
[2024-05-07 13:55] LABS: BASO # 0.1 10^3/uL (0.0-0.2); BASO % 0.4 % (0.0-1.0); EOS # 0.1 10^3/uL (0.0-0.5); EOS % 0.9 % (0.0-3.0); HEMATOCRIT 57.3 % (42.0-52.0); HEMOGLOBIN 19.1 g/dl (13.5-17.5); LYMPH # 0.9 10^3/uL (1.5-5.0); LYMPH % 6.1 % (24.0-44.0); MEAN CORPUSCULAR HEMOGLOBIN 31.9 pg (27.0-33.0); MEAN CORPUSCULAR HGB CONC 33.3 g/dl (32.0-36.5); MEAN CORPUSCULAR VOLUME 95.8 fl (80.0-96.0); MONO # 1.1 10^3/uL (0.0-0.8); MONO % 7.1 % (2.0-8.0); NEUTROPHILS # 12.7 10^3/uL (1.5-8.5); PLATELET COUNT, AUTOMATED 205 10^3/uL (150-450); RED BLOOD COUNT 5.98 10^6/uL (4.30-6.10)
== END ==
LOC: M SFHCADAM 09:07
PROVIDERS: ATTEND Physician Assistant Medical
DX: R53.83 Other fatigue (principal); R63.0 Anorexia

== ENCOUNTER → 2024-05-22 | Outpatient (REF) | payer MEDICARE ==
[2024-05-22 15:20] LABS: HEMATOCRIT 50.5 % (42.0-52.0); HEMOGLOBIN 16.8 g/dl (13.5-17.5); MEAN CORPUSCULAR HEMOGLOBIN 31.5 pg (27.0-33.0); MEAN CORPUSCULAR HGB CONC 33.3 g/dl (32.0-36.5); MEAN CORPUSCULAR VOLUME 94.7 fl (80.0-96.0); PLATELET COUNT, AUTOMATED 307 10^3/uL (150-450); RED BLOOD COUNT 5.33 10^6/uL (4.30-6.10); WHITE BLOOD COUNT 8.9 10^3/uL (4.0-10.0)
[2024-05-22 15:42] LABS: ERYTHROCYTE SEDIMENTATION RATE 59 mm/hr (0-20)
[2024-05-22 15:43] LABS: C REACTIVE PROTEIN QUANTITATIV 1.2 MG/DL (<1.0)
[2024-05-22 15:44] LABS: ALBUMIN 2.9 G/DL (3.2-5.2); BILIRUBIN,TOTAL 0.5 MG/DL (0.3-1.2); CALCIUM LEVEL 9.3 MG/DL (8.3-10.6); CREATININE FOR GFR 1.35 MG/DL (0.70-1.30); GLOMERULAR FILTRATION RATE 54.8 (>42); POTASSIUM SERUM 4.6 MMOL/L (3.5-5.1); TOTAL PROTEIN 7.9 G/DL (5.7-8.2)
== END ==
LOC: M LABDRWAD 12:52
PROVIDERS: ATTEND Nurse Practitioner Acute Care
DX: M79.89 Other specified soft tissue disorders (principal); M86.9 Osteomyelitis, unspecified

== ENCOUNTER → 2024-05-30 | Outpatient (REF) | payer MEDICARE ==
[2024-05-30 14:06] LABS: HEMATOCRIT 48.1 % (42.0-52.0); HEMOGLOBIN 16.1 g/dl (13.5-17.5); MEAN CORPUSCULAR HEMOGLOBIN 31.5 pg (27.0-33.0); MEAN CORPUSCULAR HGB CONC 33.5 g/dl (32.0-36.5); MEAN CORPUSCULAR VOLUME 94.1 fl (80.0-96.0); PLATELET COUNT, AUTOMATED 185 10^3/uL (150-450); RED BLOOD COUNT 5.11 10^6/uL (4.30-6.10); WHITE BLOOD COUNT 9.8 10^3/uL (4.0-10.0)
[2024-05-30 14:10] LABS: ERYTHROCYTE SEDIMENTATION RATE 33 mm/hr (0-20)
[2024-05-30 14:38] LABS: C REACTIVE PROTEIN QUANTITATIV < 0.40 MG/DL (<1.0)
[2024-05-30 14:39] LABS: ALBUMIN 2.8 G/DL (3.2-5.2); ALKALINE PHOSPHATASE 68 U/L (46-116); ALT/SGPT 26 U/L (7.0-40); AST/SGOT 22 U/L (<34); BILIRUBIN,TOTAL 0.4 MG/DL (0.3-1.2); BLOOD UREA NITROGEN 28 MG/DL (9-23); CALCIUM LEVEL 8.9 MG/DL (8.3-10.6); CARBON DIOXIDE LEVEL 24 MMOL/L (20-31); CHLORIDE LEVEL 114 MMOL/L (98-107); CREATININE FOR GFR 1.22 MG/DL (0.70-1.30); GLOMERULAR FILTRATION RATE > 60.0 (>42); GLUCOSE, FASTING 104 MG/DL (74-106); POTASSIUM SERUM 4.5 MMOL/L (3.5-5.1); SODIUM LEVEL 144 MMOL/L (136-145)
== END ==
LOC: M LABDRWAD 13:52
PROVIDERS: ATTEND Nurse Practitioner Acute Care
DX: M79.89 Other specified soft tissue disorders (principal); M86.9 Osteomyelitis, unspecified

== ENCOUNTER → 2024-06-05 | Outpatient (REF) | payer MEDICARE ==
[2024-06-05 13:36] LABS: HEMATOCRIT 50.6 % (42.0-52.0); HEMOGLOBIN 16.9 g/dl (13.5-17.5); MEAN CORPUSCULAR HEMOGLOBIN 31.2 pg (27.0-33.0); MEAN CORPUSCULAR HGB CONC 33.4 g/dl (32.0-36.5); MEAN CORPUSCULAR VOLUME 93.4 fl (80.0-96.0); PLATELET COUNT, AUTOMATED 153 10^3/uL (150-450); RED BLOOD COUNT 5.42 10^6/uL (4.30-6.10)
[2024-06-05 13:48] LABS: ALBUMIN 2.9 G/DL (3.2-5.2); ALKALINE PHOSPHATASE 65 U/L (40-129); ALT/SGPT 23 U/L (7.0-40); AST/SGOT 19 U/L (<34); BLOOD UREA NITROGEN 22 MG/DL (9-23); CALCIUM LEVEL 8.8 MG/DL (8.3-10.6); CARBON DIOXIDE LEVEL 24 MMOL/L (20-31); CHLORIDE LEVEL 113 MMOL/L (98-107); CREATININE FOR GFR 1.22 MG/DL (0.70-1.30); GLOMERULAR FILTRATION RATE > 60.0 (>42); GLUCOSE, FASTING 168 MG/DL (74-106); POTASSIUM SERUM 3.9 MMOL/L (3.5-5.1); SODIUM LEVEL 144 MMOL/L (136-145); TOTAL PROTEIN 7.1 G/DL (5.7-8.2)
[2024-06-05 14:46] LABS: ERYTHROCYTE SEDIMENTATION RATE 41 mm/hr (0-20)
== END ==
LOC: M LABDRWAD 12:55
PROVIDERS: ATTEND Nurse Practitioner Acute Care
DX: Z51.81 Encounter for therapeutic drug level monitoring (principal); Z79.2 Long term (current) use of antibiotics; M86.8X6 Other osteomyelitis, lower leg

== ENCOUNTER → 2024-06-12 | Outpatient (REF) | payer MEDICARE ==
[2024-06-12 13:51] LABS: C REACTIVE PROTEIN QUANTITATIV 1.4 MG/DL (<1.0)
[2024-06-12 13:53] LABS: BILIRUBIN,TOTAL 0.6 MG/DL (0.3-1.2); CALCIUM LEVEL 9.2 MG/DL (8.3-10.6); CREATININE FOR GFR 1.36 MG/DL (0.70-1.30); GLOMERULAR FILTRATION RATE 54.4 (>42); TOTAL PROTEIN 6.9 G/DL (5.7-8.2)
[2024-06-12 13:55] LABS: HEMATOCRIT 47.7 % (42.0-52.0); HEMOGLOBIN 15.9 g/dl (13.5-17.5); MEAN CORPUSCULAR HEMOGLOBIN 31.4 pg (27.0-33.0); MEAN CORPUSCULAR HGB CONC 33.3 g/dl (32.0-36.5); MEAN CORPUSCULAR VOLUME 94.3 fl (80.0-96.0); PLATELET COUNT, AUTOMATED 167 10^3/uL (150-450); RED BLOOD COUNT 5.06 10^6/uL (4.30-6.10); WHITE BLOOD COUNT 9.2 10^3/uL (4.0-10.0)
[2024-06-12 14:02] LABS: ERYTHROCYTE SEDIMENTATION RATE 39 mm/hr (0-20)
== END ==
LOC: M LABWUC 13:07
PROVIDERS: ATTEND Nurse Practitioner Acute Care
DX: M86.8X6 Other osteomyelitis, lower leg (principal)

== ENCOUNTER → 2024-06-19 | Outpatient (REF) | payer MEDICARE ==
[2024-06-19 15:13] LABS: ERYTHROCYTE SEDIMENTATION RATE 17 mm/hr (0-20)
[2024-06-19 15:16] LABS: HEMATOCRIT 51.2 % (42.0-52.0); HEMOGLOBIN 16.9 g/dl (13.5-17.5); MEAN CORPUSCULAR HEMOGLOBIN 31.7 pg (27.0-33.0); MEAN CORPUSCULAR VOLUME 96.1 fl (80.0-96.0); PLATELET COUNT, AUTOMATED 223 10^3/uL (150-450); RED BLOOD COUNT 5.33 10^6/uL (4.30-6.10); WHITE BLOOD COUNT 10.7 10^3/uL (4.0-10.0)
[2024-06-19 15:33] LABS: C REACTIVE PROTEIN QUANTITATIV 0.6 MG/DL (<1.0)
[2024-06-19 15:35] LABS: ALBUMIN 3.2 G/DL (3.2-5.2); BILIRUBIN,TOTAL 0.5 MG/DL (0.3-1.2); CALCIUM LEVEL 9.1 MG/DL (8.3-10.6); CREATININE FOR GFR 1.78 MG/DL (0.70-1.30); GLOMERULAR FILTRATION RATE 39.9 (>42); POTASSIUM SERUM 4.5 MMOL/L (3.5-5.1); TOTAL PROTEIN 7.2 G/DL (5.7-8.2)
== END ==
LOC: M LABDRWAD 14:02
PROVIDERS: ATTEND Nurse Practitioner Acute Care
DX: M86.9 Osteomyelitis, unspecified (principal)

== ENCOUNTER → 2024-08-09 | Outpatient (CLI) | payer MEDICARE ==
[2024-08-09 11:46] LABS: HEMATOCRIT 53.6 % (42.0-52.0); HEMOGLOBIN 17.8 g/dl (13.5-17.5); MEAN CORPUSCULAR HEMOGLOBIN 31.4 pg (27.0-33.0); MEAN CORPUSCULAR HGB CONC 33.2 g/dl (32.0-36.5); MEAN CORPUSCULAR VOLUME 94.5 fl (80.0-96.0); PLATELET COUNT, AUTOMATED 186 10^3/uL (150-450); RED BLOOD COUNT 5.67 10^6/uL (4.30-6.10); WHITE BLOOD COUNT 12.8 10^3/uL (4.0-10.0)
[2024-08-09 11:57] LABS: INR 1.31; PROTHROMBIN TIME 16.5 SECONDS (12.5-14.5)
[2024-08-09 11:59] LABS: ERYTHROCYTE SEDIMENTATION RATE 41 mm/hr (0-20)
[2024-08-09 12:11] LABS: ALBUMIN 3.7 G/DL (3.2-5.2); BILIRUBIN,TOTAL 1.1 MG/DL (0.3-1.2); CREATININE FOR GFR 1.35 MG/DL (0.70-1.30); GLOMERULAR FILTRATION RATE 54.7 (>42); POTASSIUM SERUM 4.2 MMOL/L (3.5-5.1); TOTAL PROTEIN 7.8 G/DL (5.7-8.2)
== END ==
LOC: M RAD 08:39
PROVIDERS: ATTEND Orthopaedic Surgery
DX: Z01.818 Encounter for other preprocedural examination (principal); M17.11 Unilateral primary osteoarthritis, right knee; Z79.01 Long term (current) use of anticoagulants

== ENCOUNTER 2024-09-15 09:24 | Inpatient (IN) | payer MEDICARE ==
[~2024-09-15] VITALS: Ht 177.8 cm; Wt 96.2 kg
[2024-09-15 11:44] LABS: BASO # 0.1 10^3/uL (0.0-0.2); BASO % 0.4 % (0.0-1.0); EOS # 0.1 10^3/uL (0.0-0.5); EOS % 0.8 % (0.0-3.0); HEMATOCRIT 50.6 % (42.0-52.0); HEMOGLOBIN 16.9 g/dl (13.5-17.5); LYMPH # 0.9 10^3/uL (1.5-5.0); LYMPH % 7.6 % (24.0-44.0); MEAN CORPUSCULAR HEMOGLOBIN 31.5 pg (27.0-33.0); MEAN CORPUSCULAR HGB CONC 33.4 g/dl (32.0-36.5); MEAN CORPUSCULAR VOLUME 94.2 fl (80.0-96.0); MONO # 1.1 10^3/uL (0.0-0.8); MONO % 9.3 % (2.0-8.0); NEUTROPHILS # 9.9 10^3/uL (1.5-8.5); NEUTROPHILS % 81.5 % (36.0-66.0); PLATELET COUNT, AUTOMATED 222 10^3/uL (150-450); RED BLOOD COUNT 5.37 10^6/uL (4.30-6.10); WHITE BLOOD COUNT 12.1 10^3/uL (4.0-10.0)
[2024-09-15 11:50] LABS: ERYTHROCYTE SEDIMENTATION RATE 54 mm/hr (0-20)
[2024-09-15 12:13] LABS: C REACTIVE PROTEIN QUANTITATIV 11.09 MG/DL (<1.0); CALCIUM LEVEL 9.1 MG/DL (8.3-10.6); CREATININE FOR GFR 1.51 MG/DL (0.70-1.30); GLOMERULAR FILTRATION RATE 48.1 (>42); POTASSIUM SERUM 4.3 MMOL/L (3.5-5.1)
[2024-09-15 14:11] LABS: PROCALCITONIN 0.19 ng/ml
[2024-09-15] MEDS: CEFEPIME HCL 1 GM in DEXTROSE 5% (D5W) ADV/MINI-BAG 50 ML IV ONE (16:35)
[2024-09-15] MEDS ORDERED: VANCOMYCIN HCL 1,000 MG in IV FLUID PLACE HOLDER 1 EA IV ONE (16:35)
[2024-09-15] MEDS: VANCOMYCIN HCL 1,500 MG, VIAL MATE ADAPTER 1 EACH in NS 500 ML IV ONE (16:45)
[2024-09-15] MEDS ORDERED: ACETAMINOPHEN 325 MG TAB PO PRN (17:15)
[2024-09-15] MEDS ORDERED: CHLO125TA PO (17:22)
[2024-09-15] MEDS ORDERED: ACET-897 PO (17:22)
[2024-09-15] MEDS ORDERED: HOME MED LIST COMPLETE! XX SCH (17:25)
[2024-09-15] MEDS ORDERED: VANCOMYCIN HCL 1,000 MG, VIAL MATE ADAPTER 1 EACH in NS 250 ML IV SCH (17:30)
[2024-09-15 17:44] LABS: CHOLESTEROL RISK RATIO 3.76 (<5); HDL CHOLESTEROL 36.4 MG/DL (>40); LDL CHOLESTEROL 78.8 MG/DL (<100); NON-HDL-C 100.6 MG/DL
[2024-09-15 17:54] LABS: HEMOGLOBIN A1c 5.7 % (4.0-6.0)
[2024-09-15 20:08] VITALS: BP 164/96; TEMP 97.3; O2SAT 95
[2024-09-15 20:47] LABS: INR 1.64; PROTHROMBIN TIME 19.7 SECONDS (12.5-14.5)
[2024-09-15] MEDS: dilTIAZem 120MG **CD** CAPSULE PO SCH (21:39)
[2024-09-15] MEDS: LACTOBACILLUS ACIDOPHILUS CAP (BACID) PO SCH (21:39)
[2024-09-15] MEDS: **hydrALAZINE HCL** 25 MG TAB PO SCH (21:40)
[2024-09-15] MEDS: CHLORTHALIDONE 12.5MG PER 1/2 TABLET PO SCH (21:40)
[2024-09-16] MEDS: CEFEPIME HCL 1 GM in DEXTROSE 5% (D5W) ADV/MINI-BAG 50 ML IV SCH (04:16)
[2024-09-16 04:41] VITALS: BP 145/89; TEMP 97.7; O2SAT 94
[2024-09-16 07:22] LABS: HEMATOCRIT 47.9 % (42.0-52.0); HEMOGLOBIN 16.1 g/dl (13.5-17.5); MEAN CORPUSCULAR HEMOGLOBIN 31.8 pg (27.0-33.0); MEAN CORPUSCULAR HGB CONC 33.6 g/dl (32.0-36.5); MEAN CORPUSCULAR VOLUME 94.7 fl (80.0-96.0); PLATELET COUNT, AUTOMATED 205 10^3/uL (150-450); RED BLOOD COUNT 5.06 10^6/uL (4.30-6.10); WHITE BLOOD COUNT 10.2 10^3/uL (4.0-10.0)
[2024-09-16 07:51] LABS: ALBUMIN 2.5 G/DL (3.2-5.2); BILIRUBIN,TOTAL 0.7 MG/DL (0.3-1.2); CALCIUM LEVEL 8.3 MG/DL (8.3-10.6); CREATININE FOR GFR 1.31 MG/DL (0.70-1.30); GLOMERULAR FILTRATION RATE 56.6 (>42); POTASSIUM SERUM 4.1 MMOL/L (3.5-5.1); TOTAL PROTEIN 6.5 G/DL (5.7-8.2)
[2024-09-16] MEDS ORDERED: VANCOMYCIN HCL 1,500 MG, VIAL MATE ADAPTER 1 EACH in NS 500 ML IV SCH (08:00)
[2024-09-16] MEDS: aMILoride 5 MG TAB PO SCH (08:34)
[2024-09-16] MEDS: allopurinoL 100 MG TAB PO SCH (08:36)
[2024-09-16] MEDS: ATORVASTATIN 10 MG TAB PO SCH (08:36)
[2024-09-16] MEDS: VANCOMYCIN HCL 1,250 MG, VIAL MATE ADAPTER 1 EACH in NS 250 ML IV SCH (09:33)
[2024-09-16 12:00] VITALS: BP 136/65; TEMP 97.5; O2SAT 95
[2024-09-16] MEDS: RIVAROXABAN 15MG TAB (XARELTO) PO SCH (17:16)
[2024-09-16 19:40] VITALS: BP 172/97; TEMP 97.2; O2SAT 98
[2024-09-16 23:16] VITALS: BP 152/80
[2024-09-17 04:00] VITALS: BP 150/98; TEMP 97.5; O2SAT 98
[2024-09-17 08:26] LABS: HEMATOCRIT 49.7 % (42.0-52.0); HEMOGLOBIN 16.5 g/dl (13.5-17.5); MEAN CORPUSCULAR HEMOGLOBIN 30.8 pg (27.0-33.0); MEAN CORPUSCULAR HGB CONC 33.2 g/dl (32.0-36.5); MEAN CORPUSCULAR VOLUME 92.9 fl (80.0-96.0); PLATELET COUNT, AUTOMATED 236 10^3/uL (150-450); RED BLOOD COUNT 5.35 10^6/uL (4.30-6.10); WHITE BLOOD COUNT 10.3 10^3/uL (4.0-10.0)
[2024-09-17 09:21] LABS: ALBUMIN 2.6 G/DL (3.2-5.2); BILIRUBIN,TOTAL 0.7 MG/DL (0.3-1.2); C REACTIVE PROTEIN QUANTITATIV 5.13 MG/DL (<1.0); CALCIUM LEVEL 8.7 MG/DL (8.3-10.6); CREATININE FOR GFR 1.32 MG/DL (0.70-1.30); GLOMERULAR FILTRATION RATE 56.1 (>42); POTASSIUM SERUM 3.7 MMOL/L (3.5-5.1); TOTAL PROTEIN 6.8 G/DL (5.7-8.2)
[2024-09-17 10:07] VITALS: BP 157/97
[2024-09-17] MEDS ORDERED: CEFA500C2 PO (11:34)
[2024-09-17] MEDS ORDERED: RISATAB3 PO (11:34)
[2024-09-17 12:00] VITALS: BP 144/97; TEMP 97.3; O2SAT 99
[2024-09-17 12:37] VITALS: BP 186/111
[2024-09-17] MEDS: ceFAZolin SOD 2 GM in IV 1 EA IV SCH (12:38)
== END 2024-09-17 14:00 | disposition home or self-care (01) | DRG 902 ==
LOC: M ED 09:24 → M ED INP 17:11 → M MS5PR 20:02
PROVIDERS: ADMIT Internal Medicine; ATTEND Internal Medicine Nephrology
PROC: 0JBQ0ZZ Excision of Right Foot Subcutaneous Tissue and Fascia, Open Approach (ICD-10-PCS; principal; 2024-09-16)
DX: L76.31 Postprocedural hematoma of skin and subcutaneous tissue following a dermatologic procedure (principal); L03.116 Cellulitis of left lower limb; L97.518 Non-pressure chronic ulcer of other part of right foot with other specified severity; G62.9 Polyneuropathy, unspecified; I48.0 Paroxysmal atrial fibrillation; M10.9 Gout, unspecified; N18.30 Chronic kidney disease, stage 3 unspecified; E78.5 Hyperlipidemia, unspecified; I12.9 Hypertensive chronic kidney disease with stage 1 through stage 4 chronic kidney disease, or unspecified chronic kidney disease; Z86.73 Personal history of transient ischemic attack (TIA), and cerebral infarction without residual deficits; Z89.422 Acquired absence of other left toe(s); Z87.891 Personal history of nicotine dependence; Z79.899 Other long term (current) drug therapy; Z88.8 Allergy status to other drugs, medicaments and biological substances

== ENCOUNTER → 2024-09-24 | Outpatient (REF) | payer MEDICARE ==
[~2024-09-24] MED LIST changes: +ACET-897 PO; +CEFA500C2 PO; +RISATAB3 PO
[2024-09-24 18:35] LABS: HEMATOCRIT 50.8 % (42.0-52.0); HEMOGLOBIN 16.6 g/dl (13.5-17.5); MEAN CORPUSCULAR HEMOGLOBIN 31.3 pg (27.0-33.0); MEAN CORPUSCULAR HGB CONC 32.7 g/dl (32.0-36.5); MEAN CORPUSCULAR VOLUME 95.8 fl (80.0-96.0); PLATELET COUNT, AUTOMATED 256 10^3/uL (150-450); WHITE BLOOD COUNT 11.4 10^3/uL (4.0-10.0)
[2024-09-24 18:59] LABS: URIC ACID 8.3 MG/DL (3.7-9.2)
[2024-09-24 19:02] LABS: ALBUMIN 3.1 G/DL (3.2-5.2); BILIRUBIN,TOTAL 0.5 MG/DL (0.3-1.2); C REACTIVE PROTEIN QUANTITATIV 1.27 MG/DL (<1.0); CHOLESTEROL RISK RATIO 3.72 (<5); CREATININE FOR GFR 1.55 MG/DL (0.70-1.30); GLOMERULAR FILTRATION RATE 46.6 (>42); HDL CHOLESTEROL 34.6 MG/DL (>40); LDL CHOLESTEROL 62.4 MG/DL (<100); NON-HDL-C 94.4 MG/DL; POTASSIUM SERUM 4.1 MMOL/L (3.5-5.1); TOTAL PROTEIN 7.7 G/DL (5.7-8.2)
== END ==
LOC: M SFHCADAM 10:33
PROVIDERS: ATTEND Family Medicine
DX: I11.9 Hypertensive heart disease without heart failure (principal); I63.9 Cerebral infarction, unspecified; L03.115 Cellulitis of right lower limb; M1A.30X0 Chronic gout due to renal impairment, unspecified site, without tophus (tophi)

== ENCOUNTER → 2024-10-23 | Outpatient (REF) | payer MEDICARE ==
[2024-10-23 17:57] LABS: APPEARANCE, URINE CLOUDY (CLEAR); BACTERIA, URINE AUTO NEGATIVE (NEGATIVE); BILIRUBIN, URINE AUTO NEGATIVE (NEGATIVE); BLOOD, URINE BLOOD 3+ (NEGATIVE); COLOR, URINE AMBER (YELLOW); GLUCOSE, URINE (UA) AUTO NEGATIVE (NEGATIVE); KETONE, URINE AUTO NEGATIVE (NEGATIVE); LEUKOCYTE ESTERASE, URINE AUTO NEGATIVE (NEGATIVE); MUCUS, URINE SMALL (NEGATIVE); NITRITE, URINE AUTO NEGATIVE (NEGATIVE); PROTEIN, URINE AUTO 2+ mg/dL (NEGATIVE); RBC, URINE AUTO TNTC /HPF (0-3); SPECIFIC GRAVITY URINE AUTO 1.016 (1.002-1.035); SQUAMOUS EPITHELIAL CELL UR AU 1 /HPF (0-6); UROBILINOGEN, URINE AUTO 0.2 mg/dL (0.0-2.0); WBC, URINE AUTO 3 /HPF (0-3)
== END ==
LOC: M SMT 16:58
PROVIDERS: ATTEND Physician Assistant
DX: N23 Unspecified renal colic (principal)

== ENCOUNTER → 2024-11-04 | Outpatient (CLI) | payer MEDICARE | LOC: M PLAIMG 11:25 | PROVIDERS: ATTEND Physician Assistant | DX: N23 Unspecified renal colic (principal); R59.0 Localized enlarged lymph nodes; K40.90 Unilateral inguinal hernia, without obstruction or gangrene, not specified as recurrent; K42.9 Umbilical hernia without obstruction or gangrene ==

== ENCOUNTER → 2024-11-15 | Outpatient (REF) | payer MEDICARE | LOC: M LAB REF 17:11 | PROVIDERS: ATTEND Nurse Practitioner Family | DX: N39.0 Urinary tract infection, site not specified (principal) ==

== ENCOUNTER → 2024-12-26 | Outpatient (REF) | payer MEDICARE ==
[~2024-12-26] MED LIST changes: -FLOM0.4C39 PO; +TAMS-18 PO
[2024-12-26 15:49] LABS: APPEARANCE, URINE CLEAR (CLEAR); BACTERIA, URINE AUTO NEGATIVE (NEGATIVE); BILIRUBIN, URINE AUTO NEGATIVE (NEGATIVE); BLOOD, URINE BLOOD 2+ (NEGATIVE); COLOR, URINE YELLOW (YELLOW); GLUCOSE, URINE (UA) AUTO NEGATIVE (NEGATIVE); KETONE, URINE AUTO NEGATIVE (NEGATIVE); LEUKOCYTE ESTERASE, URINE AUTO NEGATIVE (NEGATIVE); NITRITE, URINE AUTO NEGATIVE (NEGATIVE); PROTEIN, URINE AUTO NEGATIVE (NEGATIVE); RBC, URINE AUTO 55 /HPF (0-3); SPECIFIC GRAVITY URINE AUTO 1.015 (1.002-1.035); SQUAMOUS EPITHELIAL CELL UR AU 0 /HPF (0-6); UROBILINOGEN, URINE AUTO 0.2 mg/dL (0.0-2.0); WBC, URINE AUTO 1 /HPF (0-3)
== END ==
LOC: M SMT 15:17
PROVIDERS: ATTEND Physician Assistant
DX: R31.29 Other microscopic hematuria (principal)

== ENCOUNTER → 2025-05-05 | Outpatient (CLI) | payer MEDICARE | LOC: M PLAIMG 08:36 | PROVIDERS: ATTEND Physician Assistant | DX: I08.0 Rheumatic disorders of both mitral and aortic valves (principal); I27.20 Pulmonary hypertension, unspecified ==

== ENCOUNTER → 2025-06-18 | Outpatient (REF) | payer MEDICARE ==
[2025-06-18 18:36] LABS: CALCIUM LEVEL 9.3 MG/DL (8.3-10.6); CARBON DIOXIDE LEVEL 24.0 MMOL/L (20-31); CHLORIDE LEVEL 110.0 MMOL/L (98-107); CREATININE FOR GFR 1.15 MG/DL (0.70-1.30); GLOMERULAR FILTRATION RATE 66.0 (>42); POTASSIUM SERUM 4.5 MMOL/L (3.5-5.1); SODIUM LEVEL 148.0 MMOL/L (136-145)
== END ==
LOC: M LABDRWAD 17:36 → M LAB REF 17:36
PROVIDERS: ATTEND Physician Assistant
DX: I11.9 Hypertensive heart disease without heart failure (principal); R06.02 Shortness of breath

== ENCOUNTER → 2025-07-14 | Outpatient (CLI) | payer MEDICARE | LOC: M WHC 07:11 | PROVIDERS: ATTEND Nurse Practitioner Family | DX: I12.9 Hypertensive chronic kidney disease with stage 1 through stage 4 chronic kidney disease, or unspecified chronic kidney disease (principal); I70.1 Atherosclerosis of renal artery; N18.9 Chronic kidney disease, unspecified; N28.1 Cyst of kidney, acquired ==

== ENCOUNTER → 2025-07-21 | Outpatient (REF) | payer MEDICARE ==
[2025-07-23 12:22] LABS: PSA % FREE 30.0 % (calc) (>25); PSA FREE 1.6 ng/mL; PSA TOTAL 5.3 ng/mL (< OR = 4.0)
== END ==
LOC: M SFHCADAM 10:14
PROVIDERS: ATTEND Urology
DX: R31.29 Other microscopic hematuria (principal)

== ENCOUNTER → 2025-07-25 | Outpatient (REF) | payer MEDICARE ==
[2025-07-25 17:29] LABS: APPEARANCE, URINE CLEAR (CLEAR); BACTERIA, URINE AUTO NEGATIVE (NEGATIVE); BILIRUBIN, URINE AUTO NEGATIVE (NEGATIVE); BLOOD, URINE BLOOD NEGATIVE (NEGATIVE); GLUCOSE, URINE (UA) AUTO NEGATIVE (NEGATIVE); KETONE, URINE AUTO NEGATIVE (NEGATIVE); LEUKOCYTE ESTERASE, URINE AUTO NEGATIVE (NEGATIVE); MUCUS, URINE SMALL (NEGATIVE); NITRITE, URINE AUTO NEGATIVE (NEGATIVE); PROTEIN, URINE AUTO 1+ mg/dL (NEGATIVE); RBC, URINE AUTO 2 /HPF (0-3); SPECIFIC GRAVITY URINE AUTO 1.020 (1.002-1.035); SQUAMOUS EPITHELIAL CELL UR AU 0 /HPF (0-6); UROBILINOGEN, URINE AUTO 0.2 mg/dL (0.0-2.0); WBC, URINE AUTO 0 /HPF (0-3)
== END ==
LOC: M SMT 16:47
PROVIDERS: ATTEND Urology
DX: R31.29 Other microscopic hematuria (principal)